=== PATIENT | male | born 1950 | race Caucasian/White ===

== ENCOUNTER 2018-07-09 13:46 | Inpatient (IN) ==
--- NOTE | 2018-07-09 14:39 | ED ---
HPI General Chief complaint: Extremity Injury, Lower Stated complaint: Wounds Time Seen by Provider: 07/09/18 14:15 Source: patient, RN notes reviewed and old records reviewed Mode of arrival: EMS Limitations: other (poor historian) History of Present Illness HPI Narrative: 67 y/o male presents by [facility] with note of right foot pain. Patient is very poor historian and denies other complaints. Nursing staff states they called the shelter to help get chief complaint and that he wears oxygen there. MD Complaint: extremity pain Quality: stabbing Radiation: none Associated symptoms: denies other symptoms Related Data Home Medications Medication Instructions Recorded Confirmed albuterol sulfate 1 puff INHALATION Q4-6H PRN 07/09/18 07/09/18 amlodipine 10 mg PO DAILY 07/09/18 07/09/18 aspirin 81 mg PO DAILY 07/09/18 07/09/18 atorvastatin [Lipitor] 20 mg PO DAILY 07/09/18 07/09/18 budesonide-formoterol [Symbicort] 2 puff INHALATION BID 07/09/18 07/09/18 carvedilol [Coreg] 25 mg PO BID 07/09/18 07/09/18 gabapentin 300 mg PO DAILY 07/09/18 07/09/18 loratadine [Claritin] 20 mg PO DAILY 07/09/18 07/09/18 omeprazole 20 mg PO DAILY 07/09/18 07/09/18 oxycodone-acetaminophen [Percocet] 1 tab PO Q4HR PRN 07/09/18 07/09/18 sennosides-docusate sodium [Senna 1 tab PO BID 07/09/18 07/09/18 Plus] Allergies Allergy/AdvReac Type Severity Reaction Status Date / Time No Known Allergies Allergy Unverified 07/09/18 15:29 Review of Systems ROS: all other systems reviewed are negative PMFSH History History Provided By: Patient and Medical Record (Abdominal aneurysm, coronary artery disease, COPD, high cholesterol, hypertension, renal failure, DE, peripheral vascular disease, coronary artery stent, tobacco use, surgical note with recent endovascular graft repair of aneurysm) Social History Social History Substance History: No History of Abuse Smoking Status: Never smoker Tobacco Type: Cigarettes How Often Do You Have a Drink Containing Alcohol: Monthly or less Exam Narrative Exam Narrative: GENERAL: 67-year-old male in no apparent distress SKIN: Patient has small cut noted to lower foot with dried blood without active signs of cellulitis or crepitus. He has purple discoloration noted to his right hallux with decreased cap refill HEAD: Atraumatic. Normocephalic. EYES: Pupils equal and round. No scleral icterus. No injection or drainage. ENT: No nasal bleeding or discharge. Mucous membranes pink and moist. NECK: Trachea midline. CARDIOVASCULAR: Regular rate and rhythm. RESPIRATORY: No accessory muscle use. GASTROINTESTINAL: Abdomen soft, non-tender, nondistended. MUSCULOSKELETAL: No obvious deformities. Edema noted to right lower extremity, dopplerable DP and PT pulses noted bilaterally NEUROLOGICAL: Awake. Motor grossly within normal limits. Normal speech. Course Reevaluation(s) Reevaluation #1: Patient is getting more short of breath and had to go with patient to CT to help coordinate. Will dose with duo nebs and Solu-Medrol. Chest x-ray reviewed. Prior ABG was on 3 L and his home amount is 4 L so this is likely why his PO2 was low. He will need to be admitted for further care of altered mental status and for likely beginnings of a COPD exacerbation. Dr. Dong can see patient while he is in the hospital for further coordination of his foot pain. son updated and gave history and agrees to plan Reevaluation #2: Patient with possible infiltrate on chest x-ray. Blood cultures, lactate ordered. Broad-spectrum antibiotics with Zosyn and vancomycin ordered given shelter patient on dialysis. Time: 18:24 Reevaluation #3: Notified by nursing staff that patient now has a fever of 102. Patient given Tylenol Consultations Consultation #1: dr dong states he will come see patient in ER Consultation #2: dr solis agrees to admit Initial Documented Vital Signs Pulse Oximetry 98 07/09/18 14:49 Last Documented Vital Signs Temperature 102.1 F H 07/09/18 18:33 Pulse Rate 74 07/09/18 18:33 Respiratory Rate 18 07/09/18 18:33 Blood Pressure 176/73 H 07/09/18 15:31 Pulse Oximetry 91 L 07/09/18 18:33 Medical Decision Making MDM Narrative Medical decision making narrative: Will check blood work, x-ray, Doppler ultrasound and discuss with vascular surgery Differential Diagnosis Differential Diagnosis: Claudication, arterial insufficiency, cellulitis, DVT, musculoskeletal Lab Data Result diagrams: 07/09/18 14:49 07/09/18 14:49 Lab Results 07/09/18 07/09/18 07/09/18 Range/Units 14:49 14:49 15:24 WBC 5.8 (4.0-11.0) th/mm3 RBC 2.86 L (4.50-5.90) mil/mm3 Hgb 8.7 L (13.0-17.0) gm/dL Hct 26.3 L (39.0-51.0) % MCV 91.9 (80.0-100.0) fL MCH 30.4 (27.0-34.0) pg MCHC 33.0 (32.0-36.0) % RDW 18.8 H (11.6-17.2) % Plt Count 53 L (150-450) th/mm3 MPV 10.4 (7.0-11.0) fL Prelim Diff (Auto) Slide review pending Neut % (Auto) 84.2 H (16.0-70.0) % Lymph % (Auto) 9.1 (9.0-44.0) % [place] % (Auto) 5.5 (0.0-8.0) % Eos % (Auto) 0.4 (0.0-4.0) % Baso % (Auto) 0.8 (0.0-2.0) % Neut # (Auto) 4.9 (1.8-7.7) th/mm3 Lymph # (Auto) 0.5 L (1.0-4.8) th/mm3 [place] # (Auto) 0.3 (0.0-0.9) th/mm3 Eos # (Auto) 0.0 (0.0-0.4) th/mm3 Baso # (Auto) 0.0 (0.0-0.2) th/mm3 WBC Differential . Diff Scan Auto diff confirmed Differential Comment . Platelet Estimate Low L (Normal) Platelet Morphology Enlarged H (Normal) Ovalocytes 1+ H (None) Puncture Site Right radial Patient Temperature 98.6 O2 Saturation 88 L* (90-100) % ABG pH 7.39 (7.380-7.420) ABG pCO2 43 H (38-42) mmHg ABG pO2 57 L* (61-120) mmHg ABG HCO3 25 (22-26) mmol/L ABG O2 Content 10.2 L (12.0-20.0) Vol % ABG Base Excess 0.8 (-2-2) mmol/L ABG Methemoglobin 0.7 (0-2) % Dio Test Present Hemoglobin 8.3 L (12.0-16.0) G/DL Carboxyhemoglobin 2.0 (0-4) % O2 Delivery Device Nasal cannula Liter Flow 3.00 L/M Inspired O2 32 % Critical Value Yes Sodium 138 (136-145) meq/L Potassium 5.0 (3.5-5.1) meq/L Chloride 103 (98-107) meq/L Carbon Dioxide 28.5 (21.0-32.0) meq/L Anion Gap 7 (5-15) meq/L BUN 36 H (7-18) mg/dL Creatinine 5.36 H (0.60-1.30) mg/dL Estimated GFR 11 L (>89) mL/min Random Glucose 117 H (74-106) mg/dL Calcium 8.4 L (8.5-10.1) mg/dL Imaging Data Radiologist's impression: Foot X-Ray 07/09/18 14:13 CONCLUSION: 1. No fracture or subluxation demonstrated. 2. Nonspecific soft tissue swelling. 3. Enthesophyte and suspected tendinosis of distal Achilles. 4. Small heel spur. 5. Os peroneum. 6. 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 Venous Doppler Study 07/09/18 14:14 CONCLUSION: 1. No deep venous thrombosis in the right leg Head CT 07/09/18 14:49 CONCLUSION: No acute intracranial abnormality. . Chest X-Ray 07/09/18 14:50 CONCLUSION: Stable right basilar pleural-parenchymal density. Discharge Plan Discharge Disposition Patient Disposition: 30 Still Patient Discharge Condition Condition: Fair Discharge Details Diagnosis: Acute alteration in mental status, Acute exacerbation of chronic obstructive pulmonary disease (COPD), Anemia, Foot pain, Fever, Pneumonia Physicians Team ED Provider: Kellie Blevins Primary Care Provider: [facility],Physician 's Attending Provider: Dajuan Solis Other Providers: Rah Yung ; Mahendra Raines Discharge Interventions Interventions: Vital Signs Last Done: 07/09/18 15:31 Status ED Status: Admitted Patient
--- NOTE | 2018-07-09 15:27 | XR ---
EXAM DATE: 07/09/2018 3:11 PM EDT AGE/SEX: 67 years / Male INDICATIONS: Right foot pain. CLINICAL DATA: This is the patient's initial encounter. Patient reports that signs and symptoms have been present for 4 - 6 days and indicates a pain score of Nonresponsive. MEDICAL/SURGICAL HISTORY: . h/o of blood clots. Non-responsive. COMPARISON: No prior exams available for comparison. FINDINGS: Soft tissue swelling is seen, fairly diffuse but especially dorsally. No fracture or subluxation demo nstrated. Mild osteoarthritis seen first metatarsophalangeal joint and sesamoids. There is a small heel spur. M oderate size enthesophyte seen of the Achilles insertion. The tendon itself is probably at least mild ly thickened. Patient has an os peroneum. CONCLUSION: 1. No fracture or subluxation demonstrated. 2. Nonspecific soft tissue swelling. 3. Enthesophyte and suspected tendinosis of distal Achilles. 4. Small heel spur. 5. Os peroneum. 6. 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 Electronically signed by: Bruce Cao MD 07/09/2018 3:26 PM EDT
--- NOTE | 2018-07-09 15:32 | XR ---
EXAM DATE: 07/09/2018 3:29 PM EDT AGE/SEX: 67 years / Male INDICATIONS: Short of breath. CLINICAL DATA: This is the patient's initial encounter. Patient reports that signs and symptoms have been present for 1 day and indicates a pain score of 7/10. MEDICAL/SURGICAL HISTORY: Cardiovascular disease. CABG. Aortic stents. COMPARISON: No prior exams available for comparison. FINDINGS: A single AP view of the chest demonstrates right basilar pleural-parenchymal density. Left lung clear . Evidence of previous median sternotomy. Stent graft in the descending thoracic aorta again seen. Va scular catheter right jugular vein with tip in the SVC. The cardiomediastinal contours are unremarkab le. Old right-sided rib fractures. Vertebral CONCLUSION: Stable right basilar pleural-parenchymal density. Electronically signed by: Alexander Briscoe MD 07/09/2018 3:30 PM EDT
[2018-07-09 15:35] LABS: Baso % (Auto) 0.8 % (0.0-2.0); Eos % (Auto) 0.4 % (0.0-4.0); Hematocrit 26.3 % (39.0-51.0); Hemoglobin 8.7 gm/dL (13.0-17.0); Lymph # (Auto) 0.5 th/mm3 (1.0-4.8); Lymph % (Auto) 9.1 % (9.0-44.0); Mean Corpuscular Hemoglobin 30.4 pg (27.0-34.0); Mean Corpuscular Volume 91.9 fL (80.0-100.0); Mean Platelet Volume 10.4 fL (7.0-11.0); Mono # (Auto) 0.3 th/mm3 (0.0-0.9); Mono % (Auto) 5.5 % (0.0-8.0); Neut # (Auto) 4.9 th/mm3 (1.8-7.7); Neut % (Auto) 84.2 % (16.0-70.0); Platelet Count 53 th/mm3 (150-450); Red Blood Count 2.86 mil/mm3 (4.50-5.90); Red Cell Distribution Width 18.8 % (11.6-17.2); White Blood Count 5.8 th/mm3 (4.0-11.0)
[2018-07-09 15:48] LABS: Calcium 8.4 mg/dL (8.5-10.1); Carbon Dioxide 28.5 meq/L (21.0-32.0)
[2018-07-09 15:56] LABS: ABG Base Excess 0.8 mmol/L (-2-2); ABG PCO2 43 mmHg (38-42); ABG PO2 57 mmHg (61-120)
--- NOTE | 2018-07-09 16:21 | US ---
EXAM DATE: 07/09/2018 4:18 PM EDT AGE/SEX: 67 years / Male INDICATIONS: Right leg swelling. CLINICAL DATA: This is the patient's initial encounter. Patient reports that signs and symptoms have been present for 1 month and indicates a pain score of Nonresponsive. MEDICAL/SURGICAL HISTORY: . Right leg swelling. Lower extremity dvt. None. Cardiac surgery. COMPARISON: No prior exams available for comparison. TECHNIQUE: Venous ultrasound of both lower extremities was performed from the inguinal ligament to t he proximal calf. Real-time, color Doppler and spectral tracing, compression and augmentation techni ques were used. FINDINGS: Normal compression of the deep venous system from the inguinal region to the proximal calf . No echogenic clot is seen. Normal response of the venous system to augmentation and respiration. CONCLUSION: 1. No deep venous thrombosis in the right leg Electronically signed by: Alexander Briscoe MD 07/09/2018 4:20 PM EDT
[2018-07-09 16:31] LABS: Ovalocytes 1+
[2018-07-09] MEDS ORDERED: MethylPREDNISolone Sod Succinate Inj 125 MG/2 ML Vial IV.PUSH ONE (17:23)
--- NOTE | 2018-07-09 17:28 | CT ---
EXAM DATE: 07/09/2018 5:22 PM EDT AGE/SEX: 67 years / Male INDICATIONS: Altered mental status. CLINICAL DATA: This is the patient's initial encounter. Patient reports that signs and symptoms have been present for 1 day and indicates a pain score of 0/10. MEDICAL/SURGICAL HISTORY: None. None. RADIATION DOSE: 33.10 CTDI (mGy) COMPARISON: No prior exams available for comparison. TECHNIQUE: CT of the head without contrast. Using automated exposure control and adjustment of the mA and/or kV according to patient size, radiation dose was kept as low as reasonably achievable to ob tain optimal diagnostic quality images. DICOM format image data is available electronically for revi ew and comparison. FINDINGS: Cerebrum: The ventricles are normal for age. No evidence of midline shift, mass lesion, hemorrhage or acute infarction. No extraaxial fluid collections are seen. Posterior Fossa: The cerebellum and brainstem are intact. The 4th ventricle is midline. The cerebe llopontine angle is unremarkable. Extracranial: The visualized portion of the orbits is intact. Skull: The calvaria is intact. No evidence of skull fracture. CONCLUSION: No acute intracranial abnormality. . Electronically signed by: Bruce Cao MD 07/09/2018 5:27 PM EDT
[2018-07-09] MEDS ORDERED: Piperacil/Tazo 3.375 GM Premix 50 ML IV.SIG ONE (18:05)
[2018-07-09] MEDS ORDERED: Vancomycin Inj 1 GM/200 ML PIGGYBACK IV.SIG ONE (18:05)
[2018-07-09] MEDS ORDERED: Acetaminophen 325 MG Tablet PO PRN (18:08)
[2018-07-09] MEDS ORDERED: Bisacodyl 10 MG Supp RECTAL PRN (18:08)
[2018-07-09] MEDS ORDERED: Vancomycin Consult Pharmacy 1 EACH OTHER SCH (18:16)
[2018-07-09] MEDS ORDERED: Acetaminophen 650 MG Supp RECTAL ONE (18:22)
--- NOTE | 2018-07-09 18:40 | P.HP ---
History of Present Illness Service: [facility] Primary Care Physician: Physician [facility] Chief Complaint: AMS History of Present Illness: 67-year-old male with past medical history significant for coronary artery disease status post stenting, CABG, COPD with chronic oxygen use, stage IV chronic kidney disease on hemodialysis Friday, Friday, Friday, neuropathy, peripheral vascular disease, abdominal aneurysm s/p repair and stenting on . The majority of the history is gathered from partial medical records as well as son who is at bedside. He reports that patient was doing well following surgery however developed right foot pain for which he followed up with vascular surgeons in [facility]. Patient apparently was supposed to be on some form of compressive stockings which were not continued while he was discharged in rehab. Son reports that patient had been in [facility] and rehab however today developed altered mental status along with increasing right foot pain and was sent to the ER. Patient is seen and examined, lethargic but arousable to touch. Nurse reports temperature of 102, administering rectal Tylenol. CBC revealed anemia with hemoglobin of 8.7, thrombocytopenia with platelets of 53. Blood gas done in the ER on 3 L with pH 7.39, CO2 43, PO2 57, oxygen saturation 88%. BMP with elevated creatinine, consistent with chronic kidney disease. Ultrasound of right lower extremity was negative for DVT. Chest x-ray completed revealed stable right basilar pleuralparenchymal densities. Foot x-ray with no fracture or subluxation, soft tissue swelling, enthesophyte and suspected tendinosis of distal Achilles, small heel spur, OS peroneum, mild OA of the first metatarsal joint and sesamiods. - Diagnosis (1) Acute alteration in mental status (2) Acute exacerbation of chronic obstructive pulmonary disease (COPD) (3) Anemia (4) Foot pain Review of Systems All other systems reviewed negative except as stated in HPI [facility] - History History Provided By: Family Member, Medical Record (Abdominal aneurysm, coronary artery disease, COPD, high cholesterol, hypertension, renal failure, MA , peripheral vascular disease, coronary artery stent, tobacco use, surgical note with recent endovascular graft repair of aneurysm) - Medical History Medical History: Medical History (Last Reviewed 07/09/18 @ 19:01 by Hilaria Villar) CKD (chronic kidney disease) requiring chronic dialysis COPD (chronic obstructive pulmonary disease) Dialysis patient HTN (hypertension) Myocardial infarct Oxygen dependent - Surgical History Surgical History: Surgical History (Last Reviewed 07/09/18 @ 19:01 by Hilaria Villar) H/O heart artery stent Hx of CABG S/P AAA repair Stented coronary artery - Tobacco History Tobacco Use In Past 30 Days: Yes Smoking Status: Never smoker Tobacco Type: Cigarettes - Alcohol History How Often Do You Have a Drink Containing Alcohol: Monthly or less - Substance Use History Substance History: No History of Abuse - Immunization History Tetanus Immunization: >5 Years Hx Influenza Vaccine This Season: Yes Medications and Allergies Active Medications: Active Medications Acetaminophen (Tylenol) 650 mg PO Q4H PRN PRN Reason: Temp > 100.4 Al Hydroxide/Mg Hydroxide (Milk Of Magnesia Liq) 30 ml PO Q12H PRN PRN Reason: Mild Constipation Albuterol (Duoneb Neb (Prn)) 1 ampul NEB Q2HR NEB PRN PRN Reason: SHORTNESS OF BREATH/WHEEZING Albuterol (Duoneb Neb (Vel)) 1 ampul NEB Q6HR WHILE AWAKE NEB VEL Amlodipine Besylate (Norvasc) 10 mg PO DAILY VEL Aspirin (Ecotrin) 81 mg PO DAILY VEL Atorvastatin Calcium (Lipitor) 20 mg PO DAILY VEL Bisacodyl (Dulcolax Supp) 10 mg RECTAL DAILY PRN PRN Reason: SEVERE CONSITIPATION Budesonide/Formoterol Fumarate (Symbicort 160/4.5 Mcg Inh) 2 puff INH BID VEL Gabapentin (Neurontin) 300 mg PO DAILY VEL Piperacillin/Tazobactam/Dextrose (Zosyn 3.375 Gm Premix) 50 mls @ 100 mls/hr IV.SIG ONCE ONE Stop: 07/09/18 18:34 Vancomycin/Sodium Chloride (Vancomycin Inj) 1 gm in 200 mls @ 200 mls/hr IV.SIG ONCE ONE Stop: 07/09/18 19:04 Pharmacy Profile Note (Vancomycin Consult Pharmacy) 0 mls @ 0 mls/hr OTHER UNSCH VEL Piperacillin/Tazobactam/Dextrose (Zosyn 3.375 Gm Premix) 50 mls @ 100 mls/hr IV.SIG Q8H VEL Lactulose (Lactulose Liq) 30 ml PO DAILY PRN PRN Reason: SEVERE CONSITIPATION Loratadine (Claritin) 20 mg PO DAILY VEL Methylprednisolone Sodium Succinate (Solumedrol Inj) 40 mg IV.PUSH Q8HR [facility] Non-Formulary Medication (Carvedilol [Coreg]) 25 mg PO BID [facility] Non-Formulary Medication (Omeprazole [Omeprazole]) 20 mg PO DAILY [facility] Oxycodone/Acetaminophen (Percocet 5/325 Mg) 1 tab PO Q4HR PRN PRN Reason: PAIN SCALE 6 TO 10 Senna/Docusate Sodium (Flor-Colace) 1 tab PO BID [facility] Sennosides (Senokot) 17.2 mg PO Q12H PRN PRN Reason: Moderate Constipation Sodium Chloride (Ns Flush) 2 ml IV.FLUSH PRN PRN PRN Reason: FLUSH AFTER USING IV ACCESS Allergies Allergy/AdvReac Type Severity Reaction Status Date / Time No Known Allergies Allergy Unverified 07/09/18 15:29 Home Medications Medication Instructions Recorded Confirmed Type albuterol sulfate 1 puff INHALATION Q4-6H PRN 07/09/18 07/09/18 History amlodipine 10 mg PO DAILY 07/09/18 07/09/18 History aspirin 81 mg PO DAILY 07/09/18 07/09/18 History atorvastatin [Lipitor] 20 mg PO DAILY 07/09/18 07/09/18 History budesonide-formoterol [Symbicort] 2 puff INHALATION BID 07/09/18 07/09/18 History carvedilol [Coreg] 25 mg PO BID 07/09/18 07/09/18 History gabapentin 300 mg PO DAILY 07/09/18 07/09/18 History loratadine [Claritin] 20 mg PO DAILY 07/09/18 07/09/18 History omeprazole 20 mg PO DAILY 07/09/18 07/09/18 History oxycodone-acetaminophen [Percocet] 1 tab PO Q4HR PRN 07/09/18 07/09/18 History sennosides-docusate sodium [Senna 1 tab PO BID 07/09/18 07/09/18 History Plus] Exam Vital signs: Vital Signs 07/09/18 14:49 07/09/18 15:31 Temperature 36.6 C Pulse Rate 78 Respiratory Rate 16 Blood Pressure 176/73 H Pulse Oximetry 98 94 L Narrative: GENERAL: Well-nourished male who appears older than stated age, lethargic. SKIN: Warm and dry. Bilateral forearm ecchymosis, upper chest and neck ecchymosis, bilateral leg scattered ecchymosis. HEAD: Atraumatic. Normocephalic. EYES: Pupils equal and round. No scleral icterus. No injection or drainage. ENT: No nasal bleeding or discharge. Dry mucous membranes NECK: Trachea midline. No JVD. CARDIOVASCULAR: Regular rate and rhythm. Right upper chest dialysis port, dried blood noted. Left forearm AV fistula with positive bruit and thrill RESPIRATORY: No accessory muscle use. Bilateral lower lobe crackles, upper rhonchi and scattered territory wheezing. GASTROINTESTINAL: Abdomen soft, non-tender, nondistended. Positive bowel sounds MUSCULOSKELETAL: Extremities without clubbing. Bilateral leg and feet +2 edema. Right foot tip/dorsal aspect of 2 through 5 metatarsals with dark purple discoloration. Erythema surrounding purple discoloration, warm foot, difficult to palpate pulses secondary to edema. NEUROLOGICAL: Lethargic, positive withdrawal to pain. no obvious cranial nerve deficits. Moving all extremities spontaneously, speech is clear with few words. Results - Labs CBC & Chem 7: 07/09/18 14:49 07/09/18 14:49 Labs: Laboratory Results - last 24 hr 07/09/18 07/09/18 07/09/18 14:49 14:49 15:24 WBC 5.8 RBC 2.86 L Hgb 8.7 L Hct 26.3 L MCV 91.9 MCH 30.4 MCHC 33.0 RDW 18.8 H Plt Count 53 L MPV 10.4 Prelim Diff (Auto) Slide review pending Neut % (Auto) 84.2 H Lymph % (Auto) 9.1 [place] % (Auto) 5.5 Eos % (Auto) 0.4 Baso % (Auto) 0.8 Neut # (Auto) 4.9 Lymph # (Auto) 0.5 L [place] # (Auto) 0.3 Eos # (Auto) 0.0 Baso # (Auto) 0.0 WBC Differential . Diff Scan Auto diff confirmed Differential Comment . Platelet Estimate Low L Platelet Morphology Enlarged H Ovalocytes 1+ H Puncture Site Right radial Patient Temperature 98.6 O2 Saturation 88 L* ABG pH 7.39 ABG pCO2 43 H ABG pO2 57 L* ABG HCO3 25 ABG O2 Content 10.2 L ABG Base Excess 0.8 ABG Methemoglobin 0.7 Dio Test Present Hemoglobin 8.3 L Carboxyhemoglobin 2.0 O2 Delivery Device Nasal cannula Liter Flow 3.00 Inspired O2 32 Critical Value Yes Sodium 138 Potassium 5.0 Chloride 103 Carbon Dioxide 28.5 Anion Gap 7 BUN 36 H Creatinine 5.36 H Estimated GFR 11 L Random Glucose 117 H Calcium 8.4 L - Imaging Impressions Foot X-Ray 07/09/18 14:13 CONCLUSION: 1. No fracture or subluxation demonstrated. 2. Nonspecific soft tissue swelling. 3. Enthesophyte and suspected tendinosis of distal Achilles. 4. Small heel spur. 5. Os peroneum. 6. 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 Venous Doppler Study 07/09/18 14:14 CONCLUSION: 1. No deep venous thrombosis in the right leg Head CT 07/09/18 14:49 CONCLUSION: No acute intracranial abnormality. . Chest X-Ray 07/09/18 14:50 CONCLUSION: Stable right basilar pleural-parenchymal density. Caprini VTE Risk Assessment Caprini VTE Risk Assessment: Moderate/High Risk (score >= 2) VTE Pharmacological Exception Reason: High risk for bleeding Caprini Risk Assessment Model: Point Value = 1 Point Value = 2 Point Value = 3 Point Value = 5 Age 41-60 Minor surgery BMI > 25 kg/m2 Swollen legs Varicose veins or History of unexplained or recurrent spontaneous Oral contraceptives or hormone replacement Sepsis (< 1 month) Serious lung disease, including pneumonia (< 1 month) Abnormal pulmonary function Acute myocardial infarction Congestive heart failure (< 1 month) History of inflammatory bowel disease Medical patient at bed rest Age 61-74 Arthroscopic surgery Major open surgery (> 45 min) Laparoscopic surgery (> 45 min) Malignancy Confined to bed (> 72 hours) Immobilizing plaster cast Central venous access Age >= 75 History of VTE Family history of VTE Factor V Leiden Prothrombin [id number] Lupus anticoagulant Anticardiolipin antibodies Elevated serum homocysteine Heparin-induced thrombocytopenia Other congenital or acquired thrombophilia Stroke (< 1 month) Elective arthroplasty Hip, pelvis, or leg fracture Acute spinal cord injury (< 1 month) Prophylaxis Regimen: Total Risk Factor Score Risk Level Prophylaxis Regimen 0-1 Low Early ambulation 2 Moderate Order ONE of the following: *Sequential Compression Device (SCD) *Heparin 5000 units SQ BID 3-4 Higher Order ONE of the following medications: *Heparin 5000 units SQ TID *Enoxaparin/Lovenox 40 mg SQ daily (WT < 150 kg, CrCl > 30 mL/min) *Enoxaparin/Lovenox 30 mg SQ daily (WT < 150 kg, CrCl > 10-29 mL/min) *Enoxaparin/Lovenox 30 mg SQ BID (WT < 150 kg, CrCl > 30 mL/min) AND/OR *Sequential Compression Device (SCD) 5 or more Highest Order ONE of the following medications: *Heparin 5000 units SQ TID (Preferred with Epidurals) *Enoxaparin/Lovenox 40 mg SQ daily (WT < 150 kg, CrCl > 30 mL/min) *Enoxaparin/Lovenox 30 mg SQ daily (WT < 150 kg, CrCl > 10-29 mL/min) *Enoxaparin/Lovenox 30 mg SQ BID (WT < 150 kg, CrCl > 30 mL/min) AND *Sequential Compression Device (SCD) Assessment and Plan - Assessment (1) Acute alteration in mental status Code(s): R41.82 - Altered mental status, unspecified Status: Acute (2) Acute exacerbation of chronic obstructive pulmonary disease (COPD) Code(s): J44.1 - Chronic obstructive pulmonary disease with (acute) exacerbation Status: Acute (3) Anemia Code(s): D64.9 - Anemia, unspecified Status: Acute (4) Foot pain Code(s): M79.673 - Pain in unspecified foot Status: Acute - Plan 67-year-old male with past medical history significant for coronary artery disease status post stenting, CABG, COPD with chronic oxygen use, stage IV chronic kidney disease on hemodialysis Friday, Friday, Friday, neuropathy, peripheral vascular disease, abdominal aneurysm s/p repair and stenting on . Discharge to rehabilitation center, developed altered mental status and increased right foot pain. AAA s/p repair and stenting -BP control, vascular services consulted Right foot pain -Toe discoloration noted on exam -Cellulitis versus ischemia -Right lower extremity Doppler ultrasound negative -Vascular services consulted by ED physician, greatly appreciate assistance -As needed Percocet for pain, continue gabapentin Altered mental status -CT of the head negative for acute abnormality -Blood gas with low PO2 at 57 and low O2 saturation, possibly contributing, could also be related to underlying infection/pneumonia -Check ammonia, vitamins, RPR, obtained UA if still in nonoliguric Healthcare acquired pneumonia/COPD exacerbation -Chest x-ray with stable right basilar pleuralparenchymal densities, T-max in ED 102 -Blood cultures 2 obtained -Given IV vancomycin and Zosyn in ED -Continue IV antibiotics, consult pharmacy for vancomycin dosing -Antipyretics as needed -Scheduled duo nebs, Solu-Medrol every 6 hours -Continue home Symbicort End-stage renal disease -On chronic HD M/W/F -Consult nephrology services for ongoing treatment Anemia Pancytopenia -Last platelet and PRBC trans fusionon -Continue monitoring labs DVT prophylaxis-SCDs, hold off on chemical prophylaxis due to thrombocytopenia Discussed Condition With: Discussed with ED RN, son, (3) Anemia Qualifiers: Anemia type: unspecified type Qualified Code(s): D64.9 - Anemia, unspecified (4) Foot pain Qualifiers: Laterality: right Qualified Code(s): M79.671 - Pain in right foot
[2018-07-09] MEDS ORDERED: Vancomycin Inj 1,000 MG in Sodium Chlor 0.9% Inj 250 ML IV.SIG ONE (19:00)
[2018-07-09] MEDS: Senna/Docusate Sodium 8.6/50 MG Tablet PO SCH (22:31)
[2018-07-09] MEDS: Carvedilol 12.5 MG Tablet PO SCH (22:31)
[2018-07-09] MEDS: Budesonide-Formoterol 160/4.5 MCG 6 GM Inhaler INH SCH (22:31)
[2018-07-09] MEDS: MethylPREDNISolone Sod Succinate Inj 40 MG/ML Vial IV.PUSH SCH (23:26)
[2018-07-10] MEDS: Piperacil/Tazo 2.25 GM Premix 50 ML IV.SIG SCH ×3 (01:51→19:13)
[2018-07-10] MEDS: MethylPREDNISolone Sod Succinate Inj 40 MG/ML Vial IV.PUSH SCH ×3 (05:00→21:49)
[2018-07-10 06:55] LABS: Baso % (Auto) 0.2 % (0.0-2.0); Hematocrit 24.1 % (39.0-51.0); Hemoglobin 7.9 gm/dL (13.0-17.0); Lymph # (Auto) 0.4 th/mm3 (1.0-4.8); Lymph % (Auto) 8.7 % (9.0-44.0); Mean Corpuscular HGB Conc 32.9 % (32.0-36.0); Mean Corpuscular Hemoglobin 30.4 pg (27.0-34.0); Mean Corpuscular Volume 92.5 fL (80.0-100.0); Mean Platelet Volume 9.3 fL (7.0-11.0); Mono # (Auto) 0.1 th/mm3 (0.0-0.9); Mono % (Auto) 2.1 % (0.0-8.0); Neut # (Auto) 3.8 th/mm3 (1.8-7.7); Platelet Count 46 th/mm3 (150-450); Red Blood Count 2.61 mil/mm3 (4.50-5.90); Red Cell Distribution Width 18.6 % (11.6-17.2); White Blood Count 4.3 th/mm3 (4.0-11.0)
[2018-07-10 07:14] LABS: Calcium 8.2 mg/dL (8.5-10.1); Carbon Dioxide 22.4 meq/L (21.0-32.0); Potassium 5.3 meq/L (3.5-5.1)
[2018-07-10] MEDS: Loratadine 10 MG Tablet PO SCH (08:16)
[2018-07-10] MEDS: Senna/Docusate Sodium 8.6/50 MG Tablet PO SCH ×2 (08:16→21:48)
[2018-07-10] MEDS: amLODIPine 10 MG Tablet PO SCH (08:16)
[2018-07-10] MEDS: Carvedilol 12.5 MG Tablet PO SCH ×2 (08:16→21:48)
[2018-07-10] MEDS: Pantoprazole Sodium 20 MG DR Tablet PO SCH (08:17)
[2018-07-10] MEDS: Gabapentin 300 MG Capsule PO SCH (08:17)
[2018-07-10 08:19] LABS: Ovalocytes 1+
[2018-07-10] MEDS ORDERED: Gelatin 12 MM/7 MM Topical Foam TOPICAL PRN (09:13)
[2018-07-10] MEDS ORDERED: Heparin 10,000 UNITS/10 ML Vial (for IV use) OTHER PRN (09:13)
[2018-07-10] MEDS ORDERED: Sod Chloride 0.9% Inj 1,000 ML OTHER PRN ×2 (09:13)
[2018-07-10] MEDS ORDERED: Albumin Human 25% Inj 100 ML IV.SIG PRN (09:13)
[2018-07-10] MEDS ORDERED: Sod Chloride 0.9% Inj 1,000 ML IV.CONT PRN (09:13)
[2018-07-10] MEDS ORDERED: Acetaminophen 325 MG Tablet PO PRN (09:13)
[2018-07-10] MEDS: Heparin 10,000 UNITS/10 ML Vial (for IV use) OTHER PRN (10:55)
[2018-07-10] MEDS: Budesonide-Formoterol 160/4.5 MCG 6 GM Inhaler INH SCH ×2 (12:25→22:07)
--- NOTE | 2018-07-10 12:53 | P.PNIM ---
Subjective Interval history: Patient seen in dialysis this morning. Says he is feeling all right. Denies any chest pain or shortness of breath. Denies abdominal pain. Continued right foot pain worse with movement. Physical Exam Vital signs: Vital Signs 07/09/18 14:49 07/09/18 15:31 07/09/18 17:30 Temperature 97.8 F Pulse Rate 78 76 Respiratory Rate 16 32 H Blood Pressure 176/73 H Pulse Oximetry 98 94 L 07/09/18 18:33 07/09/18 19:25 07/09/18 20:38 Temperature 102.1 F H Pulse Rate 74 76 73 Respiratory Rate 18 18 16 Blood Pressure 146/65 H Pulse Oximetry 91 L 98 94 L 07/09/18 21:45 07/10/18 00:28 07/10/18 04:57 Temperature 98.9 F 98.9 F Pulse Rate 66 69 Respiratory Rate 20 20 Blood Pressure 166/75 H 181/77 H Pulse Oximetry 96 95 07/10/18 07:00 07/10/18 09:29 07/10/18 12:25 Temperature 98.1 F 97.7 F Pulse Rate 75 75 76 Respiratory Rate 20 18 20 Blood Pressure 142/85 H 158/81 H Pulse Oximetry 97 97 Intake & Output 07/09/18 07/10/18 07/10/18 18:59 06:59 18:59 Intake Total 50 / 50 Output Total 3000 / 3000 Balance 50 / 50 -3000 / -3000 Weight 54.431 kg Intake: IV 50 / 50 Zosyn 2.25 GM Premix 50 ML @ 50 / 50 100 mls/hr IV.SIG Q8H MANJU Rx#: [id number] Output: Hemodialysis Amount 3000 / 3000 Narrative: GENERAL: Patient seen in dialysis. Oriented to year, month. Alert. SKIN: Warm and dry. HEAD: Normocephalic. EYES: No scleral icterus. No injection or drainage. NECK: Supple, trachea midline. No JVD. CARDIOVASCULAR: Regular rate and rhythm without murmurs, gallops, or rubs. RESPIRATORY: Breath sounds equal bilaterally. No accessory muscle use. GASTROINTESTINAL: Abdomen soft, non-tender, nondistended. MUSCULOSKELETAL: or edema. Cyanotic right third through fifth toes. +2 peripheral edema bilaterally. Difficult to palpate pulses BACK: Nontender without obvious deformity. No CVA tenderness. Results - Labs CBC & Chem 7: 08/10/18 05:59 07/10/18 05:59 Laboratory Results - last 24 hr 07/09/18 07/09/18 07/09/18 12:39 14:49 14:49 WBC 5.8 RBC 2.86 L Hgb 8.7 L Hct 26.3 L MCV 91.9 MCH 30.4 MCHC 33.0 RDW 18.8 H Plt Count 53 L MPV 10.4 Prelim Diff (Auto) Slide review pending Neut % (Auto) 84.2 H Lymph % (Auto) 9.1 [place] % (Auto) 5.5 Eos % (Auto) 0.4 Baso % (Auto) 0.8 Neut # (Auto) 4.9 Lymph # (Auto) 0.5 L [place] # (Auto) 0.3 Eos # (Auto) 0.0 Baso # (Auto) 0.0 WBC Differential . Diff Scan Auto diff confirmed Differential Comment . Platelet Estimate Low L Platelet Morphology Enlarged H Ovalocytes 1+ H Keratocytes Puncture Site Patient Temperature O2 Saturation ABG pH ABG pCO2 ABG pO2 ABG HCO3 ABG O2 Content ABG Base Excess ABG Methemoglobin Dio Test Hemoglobin Carboxyhemoglobin O2 Delivery Device Liter Flow Inspired O2 Critical Value Sodium 138 Potassium 5.0 Chloride 103 Carbon Dioxide 28.5 Anion Gap 7 BUN 36 H Creatinine 5.36 H Estimated GFR 11 L Random Glucose 117 H Lactic Acid 4.1 H* Calcium 8.4 L Ammonia Folate RPR 07/09/18 07/09/18 07/09/18 15:24 18:52 18:52 WBC RBC Hgb Hct MCV MCH MCHC RDW Plt Count MPV Prelim Diff (Auto) Neut % (Auto) Lymph % (Auto) [place] % (Auto) Eos % (Auto) Baso % (Auto) Neut # (Auto) Lymph # (Auto) [place] # (Auto) Eos # (Auto) Baso # (Auto) WBC Differential Diff Scan Differential Comment Platelet Estimate Platelet Morphology Ovalocytes Keratocytes Puncture Site Right radial Patient Temperature 98.6 O2 Saturation 88 L* ABG pH 7.39 ABG pCO2 43 H ABG pO2 57 L* ABG HCO3 25 ABG O2 Content 10.2 L ABG Base Excess 0.8 ABG Methemoglobin 0.7 Dio Test Present Hemoglobin 8.3 L Carboxyhemoglobin 2.0 O2 Delivery Device Nasal cannula Liter Flow 3.00 Inspired O2 32 Critical Value Yes Sodium Potassium Chloride Carbon Dioxide Anion Gap BUN Creatinine Estimated GFR Random Glucose Lactic Acid Calcium Ammonia 20 Folate 19.6 H RPR 07/09/18 07/10/18 07/10/18 18:52 05:59 05:59 WBC 4.3 RBC 2.61 L Hgb 7.9 L Hct 24.1 L MCV 92.5 MCH 30.4 MCHC 32.9 RDW 18.6 H Plt Count 46 L MPV 9.3 Prelim Diff (Auto) Slide review pending Neut % (Auto) 89.0 H Lymph % (Auto) 8.7 L [place] % (Auto) 2.1 Eos % (Auto) 0.0 Baso % (Auto) 0.2 Neut # (Auto) 3.8 Lymph # (Auto) 0.4 L [place] # (Auto) 0.1 Eos # (Auto) 0.0 Baso # (Auto) 0.0 WBC Differential . Diff Scan Auto diff confirmed Differential Comment . Platelet Estimate Low L Platelet Morphology Enlarged H Ovalocytes 1+ H Keratocytes Occ H Puncture Site Patient Temperature O2 Saturation ABG pH ABG pCO2 ABG pO2 ABG HCO3 ABG O2 Content ABG Base Excess ABG Methemoglobin Dio Test Hemoglobin Carboxyhemoglobin O2 Delivery Device Liter Flow Inspired O2 Critical Value Sodium 136 Potassium 5.3 H Chloride 102 Carbon Dioxide 22.4 Anion Gap 12 BUN 45 H Creatinine 6.16 H Estimated GFR 9 L Random Glucose 117 H Lactic Acid Calcium 8.2 L Ammonia Folate RPR Nonreactive Microbiology 07/09/18 18:19 Blood - Peripheral Aerobic Blood Culture - Preliminary No growth in 1 day 07/09/18 18:19 Blood - Peripheral Anaerobic Blood Culture - Preliminary No growth in 1 day 07/09/18 18:19 Blood - Peripheral Aerobic Blood Culture - Preliminary No growth in 1 day 07/09/18 18:19 Blood - Peripheral Anaerobic Blood Culture - Preliminary No growth in 1 day - Imaging Impressions Foot X-Ray 07/09/18 14:13 CONCLUSION: 1. No fracture or subluxation demonstrated. 2. Nonspecific soft tissue swelling. 3. Enthesophyte and suspected tendinosis of distal Achilles. 4. Small heel spur. 5. Os peroneum. 6. 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 Venous Doppler Study 07/09/18 14:14 CONCLUSION: 1. No deep venous thrombosis in the right leg Head CT 07/09/18 14:49 CONCLUSION: No acute intracranial abnormality. . Chest X-Ray 07/09/18 14:50 CONCLUSION: Stable right basilar pleural-parenchymal density. Assessment and Plan - Assessment (1) Acute alteration in mental status Code(s): R41.82 - Altered mental status, unspecified Status: Acute (2) Acute exacerbation of chronic obstructive pulmonary disease (COPD) Code(s): J44.1 - Chronic obstructive pulmonary disease with (acute) exacerbation Status: Acute (3) Anemia Code(s): D64.9 - Anemia, unspecified Status: Acute (4) Foot pain Code(s): M79.673 - Pain in unspecified foot Status: Acute - Plan 67-year-old male with past medical history significant for coronary artery disease status post stenting, CABG, COPD with chronic oxygen use, stage IV chronic kidney disease on hemodialysis Friday, Friday, Friday, neuropathy, peripheral vascular disease, abdominal aneurysm s/p repair and stenting on . Discharge to rehabilitation center, developed altered mental status and increased right foot pain. //AAA s/p repair and stenting -BP control, vascular services consulted //Right foot pain -Toe discoloration noted on exam -Cellulitis versus ischemia -Right lower extremity Doppler ultrasound negative -Vascular services consulted by ED physician, greatly appreciate assistance -As needed Percocet for pain, continue gabapentin = 07/10. Still with right lower extremity pain, follow-up vascular surgery recommendations. Appreciate assistance. //Altered mental status -CT of the head negative for acute abnormality -Blood gas with low PO2 at 57 and low O2 saturation, possibly contributing, could also be related to underlying infection/pneumonia -Check ammonia, vitamins, RPR, obtained UA if still in nonoliguric //Healthcare acquired pneumonia/COPD exacerbation -Chest x-ray with stable right basilar pleuralparenchymal densities, T-max in ED 102 -Blood cultures 2 obtained -Given IV vancomycin and Zosyn in ED -Continue IV antibiotics, consult pharmacy for vancomycin dosing -Antipyretics as needed -Scheduled duo nebs, Solu-Medrol every 6 hours -Continue home Symbicort = Continues on antibiotics. Respiratory status improved. //End-stage renal disease -On chronic HD M/W/F -Consult nephrology services for ongoing treatment = Dialysis as per nephrology. Appreciate assistance. //Anemia Pancytopenia -Last platelet and PRBC trans fusionon -Continue monitoring labs = 07/10 hemoglobin 7.9 this morning, could be dilutional. Recheck this afternoon. DVT prophylaxis-SCDs, hold off on chemical prophylaxis due to thrombocytopenia Discharge Planning: Continues inpatient treatment for pneumonia PT following. May need rehab Follow-up vascular surgery recommendations. (3) Anemia Qualifiers: Anemia type: unspecified type Qualified Code(s): D64.9 - Anemia, unspecified (4) Foot pain Qualifiers: Laterality: right Qualified Code(s): M79.671 - Pain in right foot
--- NOTE | 2018-07-10 16:07 | P.CONNP ---
<Renee Norton - Last Filed: 07/10/18 17:55> History of Present Illness Service: Nephrology Consult date: 07/10/18 Reason for Consult: ESRD on HD Primary Care Provider: [facility] Chief Complaint: AMS History of Present Illness: This is a 67 y/o male who COPD, HTN, recent endovascular AAA repair. He lives in [facility], dialyzes in [facility]. He has only been on HD for a short time, perhaps a few months, since his recent hospitalization in which they apparently used an investigational treatment for his aneurysm. He was admitted for AMS and right foot pain. Both legs are edematous, right toes are bleeding and distal portions are necrotic. he was admitted for AMS and right foot pain. He is also diagnosed with COPD exacerbation, has wheezing and rhonchi on exam. He is seen during dialysis today, and later in the ER his respirations were much less labored. We were consulted for dialysis management. His family is present, and his code status is listed as "full". Review of Systems Constitutional: Denies chills, Denies fever(s) Cardiovascular: Denies chest pain Respiratory: Reports cough, Reports excessive phlegm production, Reports shortness of breath, Reports shortness of breath with activity, Reports wheezing Gastrointestinal: Denies abdominal pain PMFSH - History History Provided By: Patient, Medical Record (Abdominal aneurysm, coronary artery disease, COPD, high cholesterol, hypertension, renal failure, [place], peripheral vascular disease, coronary artery stent, tobacco use, surgical note with recent endovascular graft repair of aneurysm) - Medical History Medical History: Medical History (Last Reviewed 07/10/18 @ 11:21 by Giselle Hayes) CKD (chronic kidney disease) requiring chronic dialysis COPD (chronic obstructive pulmonary disease) Dialysis patient HTN (hypertension) Myocardial infarct Oxygen dependent - Surgical History Surgical History: Surgical History (Last Reviewed 07/10/18 @ 11:21 by Giselle Hayes) H/O heart artery stent Hx of CABG S/P AAA repair Stented coronary artery - Tobacco History Second Hand Smoke Exposure: No Tobacco Use In Past 30 Days: Yes Smoking Status: Never smoker Tobacco Type: Cigarettes - Alcohol History How Often Do You Have a Drink Containing Alcohol: Monthly or less - Substance Use History Substance History: No History of Abuse - Immunization History Tetanus Immunization: >5 Years Hx Influenza Vaccine This Season: Yes Medications and Allergies Allergies Allergy/AdvReac Type Severity Reaction Status Date / Time No Known Allergies Allergy Unverified 07/09/18 15:29 Home Medications Medication Instructions Recorded Confirmed Type albuterol sulfate 1 puff INHALATION Q4-6H PRN 07/09/18 07/09/18 History amlodipine 10 mg PO DAILY 07/09/18 07/09/18 History aspirin 81 mg PO DAILY 07/09/18 07/09/18 History atorvastatin [Lipitor] 20 mg PO DAILY 07/09/18 07/09/18 History budesonide-formoterol [Symbicort] 2 puff INHALATION BID 07/09/18 07/09/18 History carvedilol [Coreg] 25 mg PO BID 07/09/18 07/09/18 History gabapentin 300 mg PO DAILY 07/09/18 07/09/18 History loratadine [Claritin] 20 mg PO DAILY 07/09/18 07/09/18 History omeprazole 20 mg PO DAILY 07/09/18 07/09/18 History oxycodone-acetaminophen [Percocet] 1 tab PO Q4HR PRN 07/09/18 07/09/18 History sennosides-docusate sodium [Senna 1 tab PO BID 07/09/18 07/09/18 History Plus] Active Medications: Active Medications Acetaminophen (Tylenol) 650 mg PO Q4H PRN PRN Reason: Temp > 100.4 Acetaminophen (Tylenol) 650 mg PO UNSCH PRN PRN Reason: SEE LABEL COMMENTS Albuterol (Duoneb Neb (Prn)) 1 ampul NEB Q2HR NEB PRN PRN Reason: SHORTNESS OF BREATH/WHEEZING Last Admin: 07/10/18 09:30 Dose: 1 ampul Albuterol (Duoneb Neb (Vel)) 1 ampul NEB Q6HR WHILE AWAKE NEB VEL Last Admin: 07/10/18 08:50 Dose: 1 ampul Amlodipine Besylate (Norvasc) 10 mg PO DAILY VEL Last Admin: 07/10/18 08:16 Dose: 10 mg Aspirin (Ecotrin) 81 mg PO DAILY [facility] Last Admin: 07/10/18 08:17 Dose: 81 mg Atorvastatin Calcium (Lipitor) 20 mg PO DAILY [facility] Last Admin: 07/10/18 08:16 Dose: 20 mg Bisacodyl (Dulcolax Supp) 10 mg RECTAL DAILY PRN PRN Reason: SEVERE CONSITIPATION Budesonide/Formoterol Fumarate (Symbicort 160/4.5 Mcg Inh) 2 puff INH BID [facility] Last Admin: 07/10/18 12:25 Dose: 2 puff Carvedilol (Coreg) 25 mg PO BID [facility] Last Admin: 07/10/18 08:16 Dose: 25 mg Clonidine HCl (Catapres) 0.1 mg PO UNSCH PRN PRN Reason: SEE LABEL COMMENTS Diphenhydramine HCl (Benadryl) 25 mg PO UNSCH PRN PRN Reason: SEE LABEL COMMENTS Epoetin Joshua (Epogen Inj) 10,000 unit IV.PUSH UNSCH PRN PRN Reason: SEE LABEL COMMENTS Last Admin: 07/10/18 10:54 Dose: 10,000 unit Gabapentin (Neurontin) 300 mg PO DAILY [facility] Last Admin: 07/10/18 08:17 Dose: 300 mg Gelatin (Gelfoam 12 Mm/7 Mm Topical) 1 foam TOPICAL PRN PRN PRN Reason: help stop bleeding from site Gentamicin Sulfate (Gentamicin Inj) 20 mg OTHER WITH DIALYSIS PRN PRN Reason: Dwell Gentamycin Lock Last Admin: 07/10/18 10:55 Dose: 20 mg Heparin Sodium (Porcine) (Heparin Inj) 8,000 units OTHER WITH DIALYSIS PRN PRN Reason: for machine prime Heparin Sodium (Porcine) (Heparin Inj) 1,000 units OTHER WITH DIALYSIS PRN PRN Reason: Dwell Heparin to Fill Catheter Last Admin: 07/10/18 10:55 Dose: 1,000 units Pharmacy Profile Note (Vancomycin Consult Pharmacy) 0 mls @ 0 mls/hr OTHER UNSCH [facility] Piperacillin/Tazobactam/Dextrose (Zosyn 2.25 Gm Premix) 50 mls @ 100 mls/hr IV.SIG Q8H [facility] Last Infusion: 07/10/18 13:20 Dose: Infused Albumin Human (Flexbumin 25% Inj) 100 mls @ 60 mls/hr IV.SIG WITH DIALYSIS PRN PRN Reason: hypotension / volume replace Sodium Chloride (Ns Inj) 1,000 mls @ 0 mls/hr OTHER .Q0M PRN PRN Reason: for prime and rinse back Sodium Chloride (Ns Inj) 1,000 mls @ 0 mls/hr IV.CONT .Q0M PRN PRN Reason: hypotension / volume replace Sodium Chloride (Ns Inj) 1,000 mls @ 200 mls/hr OTHER .Q5H PRN PRN Reason: for dialyzer flush PRN Lactulose (Lactulose Liq) 30 ml PO DAILY PRN PRN Reason: SEVERE CONSITIPATION Loratadine (Claritin) 20 mg PO DAILY [facility] Last Admin: 07/10/18 08:16 Dose: 20 mg Mannitol (Mannitol Inj) 12.5 gm IV.PUSH UNSCH PRN PRN Reason: hypotension / volume replace Methylprednisolone Sodium Succinate (Solumedrol Inj) 40 mg IV.PUSH Q8HR [facility] Last Admin: 07/10/18 13:52 Dose: 40 mg Nitroglycerin (Nitrostat Sl) 0.4 mg SL Q5M PRN PRN Reason: CHEST PAIN Ondansetron HCl (Zofran Inj) 4 mg IV.PUSH UNSCH PRN PRN Reason: NAUSEA OR VOMITING Oxycodone/Acetaminophen (Percocet 5/325 Mg) 1 tab PO Q4HR PRN PRN Reason: PAIN SCALE 6 TO 10 Pantoprazole Sodium (Protonix) 20 mg PO DAILY [facility] Last Admin: 07/10/18 08:17 Dose: 20 mg Senna/Docusate Sodium (Flor-Colace) 1 tab PO BID [facility] Last Admin: 07/10/18 08:16 Dose: 1 tab Sennosides (Senokot) 17.2 mg PO Q12H PRN PRN Reason: Moderate Constipation Sodium Chloride (Ns Flush) 2 ml IV.FLUSH PRN PRN PRN Reason: FLUSH AFTER USING IV ACCESS Sodium Chloride (Ns Flush) 5 ml IV.FLUSH PRN PRN PRN Reason: flush each lumen during HD Exam Vital signs: Vital Signs 07/09/18 17:30 07/09/18 18:33 07/09/18 19:25 Temperature 102.1 F H Pulse Rate 76 74 76 Respiratory Rate 32 H 18 18 Blood Pressure Pulse Oximetry 91 L 98 07/09/18 20:38 07/09/18 21:45 07/10/18 00:28 Temperature 98.9 F Pulse Rate 73 66 Respiratory Rate 16 20 Blood Pressure 146/65 H 166/75 H Pulse Oximetry 94 L 96 07/10/18 04:57 07/10/18 07:00 07/10/18 09:29 Temperature 98.9 F 98.1 F Pulse Rate 69 75 75 Respiratory Rate 20 20 18 Blood Pressure 181/77 H 142/85 H Pulse Oximetry 95 97 07/10/18 12:25 07/10/18 13:40 Temperature 97.7 F 97.9 F Pulse Rate 76 76 Respiratory Rate 20 20 Blood Pressure 158/81 H 153/81 H Pulse Oximetry 97 97 Intake & Output 07/09/18 07/10/18 07/10/18 18:59 06:59 18:59 Intake Total 50 / 50 50 / 50 Output Total 3000 / 3000 Balance 50 / 50 -2950 / -2950 Weight 54.431 kg Intake: IV 50 / 50 50 / 50 Zosyn 2.25 GM Premix 50 ML @ 50 / 50 50 / 50 100 mls/hr IV.SIG Q8H [facility] Rx#: [id number] Output: Hemodialysis Amount 3000 / 3000 - Constitutional no acute distress, chronically ill appearing, disheveled - Routine Neck Exam Present: supple, full ROM - Routine Respiratory Exam Present: accessory muscle use, rales, wheezes, diminished air movement - Routine Cardiovascular Exam Present: RRR, S1, S2 - Routine Abdominal Exam Absent: distended - Routine Extremities Exam Present: edema, pulses intact, amputation, AV fistula Comments: Left arm AVF PC right chest - Routine Skin Exam Present: erythema, dry, warm, wounds, cracked - Routine Neurological Exam Present: alert, altered mental status, moving all extremities Results - Lab Results 07/10/18 05:59 07/10/18 05:59 Most recent lab results ABG pH 7.39 (7.380-7.420) 07/09/18 15:24 ABG pCO2 43 mmHg (38-42) H 07/09/18 15:24 ABG pO2 57 mmHg (61-120) L* 07/09/18 15:24 ABG HCO3 25 mmol/L (22-26) 07/09/18 15:24 Calcium 8.2 mg/dL (8.5-10.1) L 07/10/18 05:59 - Image Kidney/bladder ultrasound: other (not required) Assessment and Plan - Assessment (1) ESRD (end stage renal disease) on dialysis Code(s): N18.6 - End stage renal disease; Z99.2 - Dependence on renal dialysis Status: Acute Plan: Seen during dialysis today on a 2K, 350 BFR, goal of 3L He has edema on exam, will need more fluid removal next treatment Monitor electrolytes intermittently Avoid IVF administration AVF left arm is not mature, using a Perm Cath for HD. He has outpatient arrangements for HD in [place] (2) Acute alteration in mental status Code(s): R41.82 - Altered mental status, unspecified Status: Acute Plan: May be due to hypoxia or infection. Clinically improving. (3) Acute exacerbation of chronic obstructive pulmonary disease (COPD) Code(s): J44.1 - Chronic obstructive pulmonary disease with (acute) exacerbation Status: Acute Plan: On Vancomycin and Zosyn oxygen, nebulizers, pulmonary toilet/IS, supportive care. Monitor clinically (4) Anemia Code(s): D64.9 - Anemia, unspecified Status: Acute Plan: Epogen with dialysis as ordered (5) Foot pain Code(s): M79.673 - Pain in unspecified foot Status: Acute Plan: Vascular surgery has been consulted. <Mahendra Raines - Last Filed: 07/10/18 18:36> History of Present Illness Primary Care Provider: [facility] - Medical History Medical History: Medical History (Last Reviewed 07/10/18 @ 11:21 by Giselle Hayes) CKD (chronic kidney disease) requiring chronic dialysis COPD (chronic obstructive pulmonary disease) Dialysis patient HTN (hypertension) Myocardial infarct Oxygen dependent - Surgical History Surgical History: Surgical History (Last Reviewed 07/10/18 @ 11:21 by Giselle Hayes) H/O heart artery stent Hx of CABG S/P AAA repair Stented coronary artery Medications and Allergies Active Medications: Active Medications Acetaminophen (Tylenol) 650 mg PO Q4H PRN PRN Reason: Temp > 100.4 Acetaminophen (Tylenol) 650 mg PO UNSCH PRN PRN Reason: SEE LABEL COMMENTS Albuterol (Duoneb Neb (Prn)) 1 ampul NEB Q2HR NEB PRN PRN Reason: SHORTNESS OF BREATH/WHEEZING Last Admin: 07/10/18 09:30 Dose: 1 ampul Albuterol (Duoneb Neb (Vel)) 1 ampul NEB Q6HR WHILE AWAKE NEB VEL Last Admin: 07/10/18 16:08 Dose: 1 ampul Amlodipine Besylate (Norvasc) 10 mg PO DAILY [facility] Last Admin: 07/10/18 08:16 Dose: 10 mg Aspirin (Ecotrin) 81 mg PO DAILY [facility] Last Admin: 07/10/18 08:17 Dose: 81 mg Atorvastatin Calcium (Lipitor) 20 mg PO DAILY [facility] Last Admin: 07/10/18 08:16 Dose: 20 mg Bisacodyl (Dulcolax Supp) 10 mg RECTAL DAILY PRN PRN Reason: SEVERE CONSITIPATION Budesonide/Formoterol Fumarate (Symbicort 160/4.5 Mcg Inh) 2 puff INH BID [facility] Last Admin: 07/10/18 12:25 Dose: 2 puff Carvedilol (Coreg) 25 mg PO BID [facility] Last Admin: 07/10/18 08:16 Dose: 25 mg Clonidine HCl (Catapres) 0.1 mg PO UNSCH PRN PRN Reason: SEE LABEL COMMENTS Diphenhydramine HCl (Benadryl) 25 mg PO UNSCH PRN PRN Reason: SEE LABEL COMMENTS Epoetin Joshua (Epogen Inj) 10,000 unit IV.PUSH UNSCH PRN PRN Reason: SEE LABEL COMMENTS Last Admin: 07/10/18 10:54 Dose: 10,000 unit Gabapentin (Neurontin) 300 mg PO DAILY [facility] Last Admin: 07/10/18 08:17 Dose: 300 mg Gelatin (Gelfoam 12 Mm/7 Mm Topical) 1 foam TOPICAL PRN PRN PRN Reason: help stop bleeding from site Gentamicin Sulfate (Gentamicin Inj) 20 mg OTHER WITH DIALYSIS PRN PRN Reason: Dwell Gentamycin Lock Last Admin: 07/10/18 10:55 Dose: 20 mg Heparin Sodium (Porcine) (Heparin Inj) 8,000 units OTHER WITH DIALYSIS PRN PRN Reason: for machine prime Heparin Sodium (Porcine) (Heparin Inj) 1,000 units OTHER WITH DIALYSIS PRN PRN Reason: Dwell Heparin to Fill Catheter Last Admin: 07/10/18 10:55 Dose: 1,000 units Pharmacy Profile Note (Vancomycin Consult Pharmacy) 0 mls @ 0 mls/hr OTHER UNSCH [facility] Piperacillin/Tazobactam/Dextrose (Zosyn 2.25 Gm Premix) 50 mls @ 100 mls/hr IV.SIG Q8H [facility] Last Infusion: 07/10/18 13:20 Dose: Infused Albumin Human (Flexbumin 25% Inj) 100 mls @ 60 mls/hr IV.SIG WITH DIALYSIS PRN PRN Reason: hypotension / volume replace Sodium Chloride (Ns Inj) 1,000 mls @ 0 mls/hr OTHER .Q0M PRN PRN Reason: for prime and rinse back Sodium Chloride (Ns Inj) 1,000 mls @ 0 mls/hr IV.CONT .Q0M PRN PRN Reason: hypotension / volume replace Sodium Chloride (Ns Inj) 1,000 mls @ 200 mls/hr OTHER .Q5H PRN PRN Reason: for dialyzer flush PRN Lactulose (Lactulose Liq) 30 ml PO DAILY PRN PRN Reason: SEVERE CONSITIPATION Loratadine (Claritin) 20 mg PO DAILY [facility] Last Admin: 07/10/18 08:16 Dose: 20 mg Mannitol (Mannitol Inj) 12.5 gm IV.PUSH UNSCH PRN PRN Reason: hypotension / volume replace Methylprednisolone Sodium Succinate (Solumedrol Inj) 40 mg IV.PUSH Q8HR [facility] Last Admin: 07/10/18 13:52 Dose: 40 mg Nitroglycerin (Nitrostat Sl) 0.4 mg SL Q5M PRN PRN Reason: CHEST PAIN Ondansetron HCl (Zofran Inj) 4 mg IV.PUSH UNSCH PRN PRN Reason: NAUSEA OR VOMITING Oxycodone/Acetaminophen (Percocet 5/325 Mg) 1 tab PO Q4HR PRN PRN Reason: PAIN SCALE 6 TO 10 Pantoprazole Sodium (Protonix) 20 mg PO DAILY [facility] Last Admin: 07/10/18 08:17 Dose: 20 mg Senna/Docusate Sodium (Flor-Colace) 1 tab PO BID [facility] Last Admin: 07/10/18 08:16 Dose: 1 tab Sennosides (Senokot) 17.2 mg PO Q12H PRN PRN Reason: Moderate Constipation Sodium Chloride (Ns Flush) 2 ml IV.FLUSH PRN PRN PRN Reason: FLUSH AFTER USING IV ACCESS Sodium Chloride (Ns Flush) 5 ml IV.FLUSH PRN PRN PRN Reason: flush each lumen during HD Exam Vital signs: Vital Signs 07/09/18 19:25 07/09/18 20:38 07/09/18 21:45 Temperature 98.9 F Pulse Rate 76 73 Respiratory Rate 18 16 Blood Pressure 146/65 H Pulse Oximetry 98 94 L 07/10/18 00:28 07/10/18 04:57 07/10/18 07:00 Temperature 98.9 F 98.1 F Pulse Rate 66 69 75 Respiratory Rate 20 20 20 Blood Pressure 166/75 H 181/77 H 142/85 H Pulse Oximetry 96 95 97 07/10/18 09:29 07/10/18 12:25 07/10/18 13:40 Temperature 97.7 F 97.9 F Pulse Rate 75 76 76 Respiratory Rate 18 20 20 Blood Pressure 158/81 H 153/81 H Pulse Oximetry 97 97 07/10/18 16:00 07/10/18 16:09 07/10/18 17:01 Temperature 97.8 F 97.7 F Pulse Rate 88 86 78 Respiratory Rate 22 20 21 Blood Pressure 151/71 H 144/81 H Pulse Oximetry 97 96 97 07/10/18 18:00 Temperature 97.7 F Pulse Rate 71 Respiratory Rate 18 Blood Pressure 125/58 L Pulse Oximetry 98 Intake & Output 07/09/18 07/10/18 07/10/18 18:59 06:59 18:59 Intake Total 50 / 50 50 / 50 Output Total 3000 / 3000 Balance 50 / 50 -2950 / -2950 Weight 54.431 kg 64.7 kg Intake: IV 50 / 50 50 / 50 Zosyn 2.25 GM Premix 50 ML @ 50 / 50 50 / 50 100 mls/hr IV.SIG Q8H [facility] Rx#: [id number] Output: Hemodialysis Amount 3000 / 3000 Other: Weight On Admission 64.7 kg Results - Lab Results 07/10/18 05:59 07/10/18 05:59 Most recent lab results ABG pH 7.39 (7.380-7.420) 07/09/18 15:24 ABG pCO2 43 mmHg (38-42) H 07/09/18 15:24 ABG pO2 57 mmHg (61-120) L* 07/09/18 15:24 ABG HCO3 25 mmol/L (22-26) 07/09/18 15:24 Calcium 8.2 mg/dL (8.5-10.1) L 07/10/18 05:59 Assessment and Plan - Assessment (1) ESRD (end stage renal disease) on dialysis Code(s): N18.6 - End stage renal disease; Z99.2 - Dependence on renal dialysis Status: Acute (2) Acute alteration in mental status Code(s): R41.82 - Altered mental status, unspecified Status: Acute (3) Acute exacerbation of chronic obstructive pulmonary disease (COPD) Code(s): J44.1 - Chronic obstructive pulmonary disease with (acute) exacerbation Status: Acute (4) Anemia Code(s): D64.9 - Anemia, unspecified Status: Acute (5) Foot pain Code(s): M79.673 - Pain in unspecified foot Status: Acute - Attending Attestation patient was seen and examined. Agree with above assessment and plan. Demonstrates significant volume overload. May need dialysis again tomorrow. Chronically ill male, looks older than stated age. At risk for complications. <Renee Norton - Last Filed: 07/10/18 17:55> (4) Anemia Qualifiers: Anemia type: unspecified type Qualified Code(s): D64.9 - Anemia, unspecified (5) Foot pain Qualifiers: Laterality: right Qualified Code(s): M79.671 - Pain in right foot <Mahendra Raines - Last Filed: 07/10/18 18:36> (4) Anemia Qualifiers: Anemia type: unspecified type Qualified Code(s): D64.9 - Anemia, unspecified (5) Foot pain Qualifiers: Laterality: right Qualified Code(s): M79.671 - Pain in right foot
--- NOTE | 2018-07-10 16:32 | P.PNVS ---
Subjective Subjective/Hospital Course: 07/10/2018 Patient seen full consult dictated We will consult podiatry regarding the right foot problem. Based on recent abdominal aortic aneurysm endovascular stenting and pre-existing vascular problems in the right leg I highly recommend that patient be transferred or refer to the original vascular surgeon in [place] for dealing with all these problems at one place is certainly more beneficial than to spread out the care over half of [place] and sort of partition it. Thanks J Objective Vital Signs / I&O: Vital Signs 07/09/18 17:30 07/09/18 18:33 07/09/18 19:25 Temperature 102.1 F H Pulse Rate 76 74 76 Respiratory Rate 32 H 18 18 Blood Pressure Pulse Oximetry 91 L 98 07/09/18 20:38 07/09/18 21:45 07/10/18 00:28 Temperature 98.9 F Pulse Rate 73 66 Respiratory Rate 16 20 Blood Pressure 146/65 H 166/75 H Pulse Oximetry 94 L 96 07/10/18 04:57 07/10/18 07:00 07/10/18 09:29 Temperature 98.9 F 98.1 F Pulse Rate 69 75 75 Respiratory Rate 20 20 18 Blood Pressure 181/77 H 142/85 H Pulse Oximetry 95 97 07/10/18 12:25 07/10/18 13:40 07/10/18 16:00 Temperature 97.7 F 97.9 F 97.8 F Pulse Rate 76 76 88 Respiratory Rate 20 20 22 Blood Pressure 158/81 H 153/81 H 151/71 H Pulse Oximetry 97 97 97 07/10/18 16:09 Temperature Pulse Rate 86 Respiratory Rate 20 Blood Pressure Pulse Oximetry 96 Intake & Output 07/09/18 07/10/18 07/10/18 18:59 06:59 18:59 Intake Total 50 / 50 50 / 50 Output Total 3000 / 3000 Balance 50 / 50 -2950 / -2950 Weight 54.431 kg Intake: IV 50 / 50 50 / 50 Zosyn 2.25 GM Premix 50 ML @ 50 / 50 50 / 50 100 mls/hr IV.SIG Q8H [facility] Rx#: [id number] Output: Hemodialysis Amount 3000 / 3000 Laboratory Results - last 24 hr 07/09/18 07/09/18 07/09/18 12:39 14:49 18:52 WBC RBC Hgb Hct MCV MCH MCHC RDW Plt Count MPV Prelim Diff (Auto) Neut % (Auto) Lymph % (Auto) [place] % (Auto) Eos % (Auto) Baso % (Auto) Neut # (Auto) Lymph # (Auto) [place] # (Auto) Eos # (Auto) Baso # (Auto) WBC Differential . Diff Scan Auto diff confirmed Differential Comment Platelet Estimate Low L Platelet Morphology Enlarged H Ovalocytes 1+ H Keratocytes Sodium Potassium Chloride Carbon Dioxide Anion Gap BUN Creatinine Estimated GFR Random Glucose Lactic Acid 4.1 H* Calcium Ammonia 20 Folate RPR 07/09/18 07/09/18 07/10/18 18:52 18:52 05:59 WBC 4.3 RBC 2.61 L Hgb 7.9 L Hct 24.1 L MCV 92.5 MCH 30.4 MCHC 32.9 RDW 18.6 H Plt Count 46 L MPV 9.3 Prelim Diff (Auto) Slide review pending Neut % (Auto) 89.0 H Lymph % (Auto) 8.7 L [place] % (Auto) 2.1 Eos % (Auto) 0.0 Baso % (Auto) 0.2 Neut # (Auto) 3.8 Lymph # (Auto) 0.4 L [place] # (Auto) 0.1 Eos # (Auto) 0.0 Baso # (Auto) 0.0 WBC Differential . Diff Scan Auto diff confirmed Differential Comment . Platelet Estimate Low L Platelet Morphology Enlarged H Ovalocytes 1+ H Keratocytes Occ H Sodium Potassium Chloride Carbon Dioxide Anion Gap BUN Creatinine Estimated GFR Random Glucose Lactic Acid Calcium Ammonia Folate 19.6 H RPR Nonreactive 07/10/18 05:59 WBC RBC Hgb Hct MCV MCH MCHC RDW Plt Count MPV Prelim Diff (Auto) Neut % (Auto) Lymph % (Auto) [place] % (Auto) Eos % (Auto) Baso % (Auto) Neut # (Auto) Lymph # (Auto) [place] # (Auto) Eos # (Auto) Baso # (Auto) WBC Differential Diff Scan Differential Comment Platelet Estimate Platelet Morphology Ovalocytes Keratocytes Sodium 136 Potassium 5.3 H Chloride 102 Carbon Dioxide 22.4 Anion Gap 12 BUN 45 H Creatinine 6.16 H Estimated GFR 9 L Random Glucose 117 H Lactic Acid Calcium 8.2 L Ammonia Folate RPR Microbiology 07/09/18 18:19 Aerobic Blood Culture - Preliminary Blood - Peripheral No growth in 1 day Anaerobic Blood Culture - Preliminary No growth in 1 day 07/09/18 18:19 Aerobic Blood Culture - Preliminary Blood - Peripheral No growth in 1 day Anaerobic Blood Culture - Preliminary No growth in 1 day Impressions Foot X-Ray 07/09/18 14:13 CONCLUSION: 1. No fracture or subluxation demonstrated. 2. Nonspecific soft tissue swelling. 3. Enthesophyte and suspected tendinosis of distal Achilles. 4. Small heel spur. 5. Os peroneum. 6. 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 Venous Doppler Study 07/09/18 14:14 CONCLUSION: 1. No deep venous thrombosis in the right leg Head CT 07/09/18 14:49 CONCLUSION: No acute intracranial abnormality. . Chest X-Ray 07/09/18 14:50 CONCLUSION: Stable right basilar pleural-parenchymal density.
[2018-07-10 19:12] LABS: Baso % (Auto) 0.1 % (0.0-2.0); Hematocrit 25.9 % (39.0-51.0); Hemoglobin 8.5 gm/dL (13.0-17.0); Lymph # (Auto) 0.4 th/mm3 (1.0-4.8); Mean Corpuscular HGB Conc 32.7 % (32.0-36.0); Mean Corpuscular Volume 91.7 fL (80.0-100.0); Mean Platelet Volume 9.2 fL (7.0-11.0); Mono # (Auto) 0.2 th/mm3 (0.0-0.9); Mono % (Auto) 4.1 % (0.0-8.0); Neut # (Auto) 5.3 th/mm3 (1.8-7.7); Neut % (Auto) 88.8 % (16.0-70.0); Platelet Count 59 th/mm3 (150-450); Red Blood Count 2.83 mil/mm3 (4.50-5.90); Red Cell Distribution Width 18.7 % (11.6-17.2)
--- NOTE | 2018-07-10 19:21 | MB ---
cc: Rah Yung MD DATE: 07/10/2018 REASON FOR CONSULTATION: Status post abdominal aortic aneurysm stenting, ischemia of the right foot. CRITICAL CARE TIME: 38 minutes. HISTORY OF PRESENT ILLNESS: This 67-year-old male with multiple medical problems apparently underwent some sort of abdominal aortic aneurysm stenting in [place], where he was sent by the [facility]. Allegedly, he was enrolled in some sort of investigational protocol there, but I am not aware of which one. The patient states that he was discharged from there and then came up here to rehab and now presents with pain in his right foot. 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 PAST SURGICAL HISTORY: Coronary artery angioplasty and stenting, AAA repair, some sort of abdominal surgery. The patient has an incision there, but he does not know what it was. SOCIAL HISTORY: The patient never smoked. Drinks socially. PHYSICAL EXAMINATION: GENERAL: Reveals a 67-year-old male appearing much older than his actual age. HEENT: Normocephalic. No trauma to the head. Pupils are equal and reactive. Extraocular muscles are intact. NECK: Bilateral carotid pulses. No bruits. CHEST: Clear. Decreased breath sounds over both lung mosqueda. The patient has severe pulmonary cachexia with loss of chest musculature and retraction of the accessory muscles when breathing. HEART: Regular rhythm. ABDOMEN: Soft. No rebound, no guarding, no masses. EXTREMITIES: The patient initially has palpable femoral, palpable popliteal, palpable dorsalis pedis and posterior tibial pulses bilateral. On the left side, the foot is well perfused. On the right side, the proximal foot is perfused, but distally, the patient has gangrene of the second, third, fourth and fifth toes and the hallux does not look that well either and starting to turn dusky. NEUROLOGIC: The patient is grossly intact. ASSESSMENT AND PLAN: I inquired about the situation of his right foot and the patient states that this right foot has been ischemic for months, about 4-5 months. He has had changes in his toes and this slowly turned dark and then black. Apparently, this happened way before he had the stenting. I am not sure which doctor he has been seeing and where, but it goes back to the [facility] some sorts. So all in all, several issues arise. 1. The patient had abdominal aortic aneurysm stenting in [facility], [place] and for followup, he should go there. I will not accept patients in followup from another surgeon after this procedure. 2. The patient has clearly chronic ischemia of the right foot, probably a trash foot threw some clots or debris down into the foot and hence the changes. According to the patient, that happened about 4-5 months ago and has been progressively worse. Now, he has dry gangrene of the 4 toes, and the great toe does not look that healthy either and seems to be going the same way. This patient has renal insufficiency and is on dialysis since mid May when he had the endovascular graft placed, so I do not know if this is reversible or not, but right now, based on clinical exam, I am not going to subject the patient to a CTA with runoff and load him with dye as clinical exam does not reveal large vessel disease. While he may have some stenotic areas proximal to his groin, clearly inflow is intact and outflow is intact except for the right foot. As far as foot care is concerned, podiatry will be consulted. Based on all the above, I would definitely recommend that the best course of action should be to transfer the patient back to [place] to his original surgeon or refer him there where he can have the podiatry care, vascular care and everything in one place. This segmented partial care in several places does not work out well most of the time. I thank you very much for the referral. I will be available for any other issues. In the meantime, podiatry will be consulted. MD EVANS Hemphill/shannon , 04:30 PM , 04:43 PM
[2018-07-10 20:45] LABS: Lymphocytes 3 % (9-44); Monocytes 3 % (0-8)
[2018-07-10 20:46] LABS: Acanthocytes Occ; Burr Cells 1+; Ovalocytes 1+; Platelet Morphology Normal (Normal); Toxic Granulation 3+
--- NOTE | 2018-07-10 23:29 | MB ---
cc: Tien FuM DATE: 07/10/2018 REASON FOR CONSULTATION: Right foot, possible progressive gangrene, ischemic digits. HISTORY OF PRESENT ILLNESS: This is a 67-year-old male who apparently was admitted to the hospital for worsening foot pain, possible altered mental status. The patient is status post abdominal aortic aneurysm repair and stenting on 06/15/2018. He reports he follows with vascular surgery from [facility]. Was enrolled in some investigational study, unclear to what extent The son reports the patient has been at [facility], but developed altered mental status with increasing right foot pain and sent to the ER. The patient was examined; lethargic, but arousable to touch. Nurse reported a temperature of 102. CBC revealed anemia, thrombocytopenia with platelets of 53. The patient has been evaluated by vascular at this point with recommendation to follow up with her original surgeon. Upon trying to obtain the best history regarding the foot, it appears that the foot has looked the same for quite some time. The pain is increased currently. PAST MEDICAL HISTORY: Positive for chronic kidney disease, COPD, dialysis, hypertension, LA, oxygen dependent, abdominal aortic aneurysm, CAD, COPD, high cholesterol, hypertension, renal failure, peripheral vascular disease, coronary artery stenting, history of tobacco use, surgical note with recent endovascular graft repair of aneurysm. PAST SURGICAL HISTORY: As previously stated, history of heart stenting, CABG, AAA repair, stenting coronary artery. INPATIENT MEDICATIONS: Reviewed. Prescribed nitroglycerin to the ischemic digits. At the time of consultation, the patient is receiving IV antibiotics. Please see complete medication list. SOCIAL HISTORY: None listed. PHYSICAL EXAMINATION: VITAL SIGNS: Temperature is 98, pulse rate 77, respiratory rate 18, blood pressure 143/65, saturating at 100% on 4 liters nasal cannula. GENERAL: This is an alert and oriented male seen at bedside. He appears to be underweight. No acute distress. Nonlabored respiration. EXTREMITIES: Right lower extremity was examined. There was noted to be a blue discoloration of the patient's right hallux. There are obvious dry stable gangrenous changes to the distal aspect of the lesser digits. It appears to mostly involve the fifth and third digit. There is no odor. There is pain upon palpating the area. The digits appear slightly cool upon palpation. Pulses are decreased, but they are very audible via Doppler. Left lower extremity is free from any obvious lesions. No crepitus or instability upon range of motion of forefoot, hindfoot and ankle. There is pain upon range of motion of the digits, specifically of the right. LABORATORY DATA: White blood cells 6, hemoglobin and hematocrit 8 and 25, platelet count 59. Chem-7: Sodium 136, potassium 5.3, chloride 102, CO2 22.4, BUN is 45, creatinine 6.16. Microbial findings: blood culture no growth 1 day. ASSESSMENT AND PLAN: Right lower extremity stable distal gangrenous ischemic changes to the lesser digits. My recommendation is nitroglycerin paste warming of the extremity and to observe. This appears to be stable at this point. I do agree with vascular surgery that we should stabilize the patient and he should likely follow up with his vascular surgeon, and likely coordinate the care. We will continue to follow along. No surgery indicated at this point. DEE Jeffrey/meek , 10:35 PM , 10:43 PM
[2018-07-11] MEDS: Piperacil/Tazo 2.25 GM Premix 50 ML IV.SIG SCH ×3 (02:22→17:25)
[2018-07-11] MEDS: MethylPREDNISolone Sod Succinate Inj 40 MG/ML Vial IV.PUSH SCH ×2 (05:08→13:19)
[2018-07-11] MEDS: Gabapentin 300 MG Capsule PO SCH (09:37)
[2018-07-11] MEDS: Pantoprazole Sodium 20 MG DR Tablet PO SCH (09:37)
[2018-07-11] MEDS: Loratadine 10 MG Tablet PO SCH (09:37)
[2018-07-11] MEDS: Senna/Docusate Sodium 8.6/50 MG Tablet PO SCH ×2 (09:38→22:22)
[2018-07-11] MEDS: Carvedilol 12.5 MG Tablet PO SCH ×2 (09:38→22:23)
[2018-07-11] MEDS: Budesonide-Formoterol 160/4.5 MCG 6 GM Inhaler INH SCH (09:38)
[2018-07-11] MEDS: amLODIPine 10 MG Tablet PO SCH (09:38)
[2018-07-11] MEDS ORDERED: Vancomycin Inj 1,250 MG in Sodium Chlor 0.9% Inj 250 ML IV.SIG ONE (11:00)
--- NOTE | 2018-07-11 11:38 | P.PNVS ---
Subjective Subjective/Hospital Course: 07/10/2018 Patient seen full consult dictated We will consult podiatry regarding the right foot problem. Based on recent abdominal aortic aneurysm endovascular stenting and pre-existing vascular problems in the right leg I highly recommend that patient be transferred or refer to the original vascular surgeon in [place] for dealing with all these problems at one place is certainly more beneficial than to spread out the care over half of [place] and sort of partitioning it. Thanks J 07/11/[address] Fu appreciated and I fully agree with his approach Patient is hemodynamically stable doing well foot looks the same somewhat swollen and distally ischemic as noted yesterday I inquired about the situation of his right foot and the patient states that this right foot has been ischemic for months, about 4-5 months. He has had changes in his toes and this slowly turned dark and then black. Apparently, this happened way before he had the stenting. I am not sure which doctor he has been seeing and where, but it goes back to the [facility] sorts. So all in all, several issues arise. 1. The patient had abdominal aortic aneurysm stenting in [facility] and for followup , he should go there. I will not accept patients in followup from another surgeon after this procedure. 2. The patient has clearly chronic ischemia of the right foot, probably a trash foot threw some clots or debris down into the foot and hence the changes. According to the patient, that happened about 4-5 months ago and has been progressively worse. Now, he has dry gangrene of the 4 toes, and the great toe does not look that healthy either and seems to be going the same way. This patient has renal insufficiency and is on dialysis since mid May when he had the endovascular graft placed, so I do not know if this is reversible or not, but right now, based on clinical exam, I am not going to subject the patient to a CTA with runoff and load him with dye as clinical exam does not reveal large vessel disease. While he may have some stenotic areas proximal to his groin, clearly inflow is intact and outflow is intact except for the right foot. As far as foot care is concerned, podiatry Dr. Fu is consulted and podiatry care is appreciated. Based on all the above, I would definitely recommend and urge that the best course of action should be to transfer the patient back to [place] to his original surgeon or refer him there where he can have the podiatry care, vascular care and everything in one place. This segmented partial care in several places does not work out well most of the time. Objective Vital Signs / I&O: Vital Signs 07/10/18 12:25 07/10/18 13:40 07/10/18 16:00 Temperature 97.7 F 97.9 F 97.8 F Pulse Rate 76 76 88 Respiratory Rate 20 20 22 Blood Pressure 158/81 H 153/81 H 151/71 H Pulse Oximetry 97 97 97 07/10/18 16:09 07/10/18 17:01 07/10/18 18:00 Temperature 97.7 F 97.7 F Pulse Rate 86 78 71 Respiratory Rate 20 21 18 Blood Pressure 144/81 H 125/58 L Pulse Oximetry 96 97 98 07/10/18 20:00 07/11/18 00:00 07/11/18 03:27 Temperature 98 F 97.7 F Pulse Rate 63 63 66 Respiratory Rate 16 18 19 Blood Pressure 143/65 H 132/62 Pulse Oximetry 100 100 95 07/11/18 04:00 07/11/18 05:08 07/11/18 07:38 Temperature 97 F L Pulse Rate 61 Respiratory Rate 18 16 Blood Pressure 136/62 Pulse Oximetry 100 95 07/11/18 08:00 Temperature 97.2 F L Pulse Rate 62 Respiratory Rate 18 Blood Pressure 153/69 H Pulse Oximetry 98 Intake & Output 07/10/18 07/11/18 07/11/18 18:59 06:59 18:59 Intake Total 50 / 50 100 / 100 Output Total 3000 / 3000 Balance -2950 / -2950 100 / 100 Weight 64.7 kg 67 kg Intake: IV 50 / 50 100 / 100 Zosyn 2.25 GM Premix 50 ML @ 50 / 50 100 / 100 100 mls/hr IV.SIG Q8H MANJU Rx#: [id number] Output: Hemodialysis Amount 3000 / 3000 Other: Weight On Admission 64.7 kg Laboratory Results - last 24 hr 07/10/18 07/11/18 18:24 05:50 WBC 6.0 RBC 2.83 L Hgb 8.5 L Hct 25.9 L MCV 91.7 MCH 30.0 MCHC 32.7 RDW 18.7 H Plt Count 59 L MPV 9.2 Prelim Diff (Auto) Slide review pending Neut % (Auto) 88.8 H Lymph % (Auto) 7.0 L [place] % (Auto) 4.1 Eos % (Auto) 0.0 Baso % (Auto) 0.1 Neut # (Auto) 5.3 Lymph # (Auto) 0.4 L [place] # (Auto) 0.2 Eos # (Auto) 0.0 Baso # (Auto) 0.0 WBC Differential Manual diff final Seg Neuts % (Manual) 90 H Band Neuts % (Manual) 4 Lymphocytes % (Manual) 3 L Monocytes % (Manual) 3 Abs Neuts (Manual) 5.6 Differential Comment . Toxic Granulation 3+ H Platelet Estimate Low L Platelet Morphology Normal Ovalocytes 1+ H Brandon Cells 1+ H Acanthocytes (Spur) Occ H Random Vancomycin 10.7 Microbiology 07/09/18 18:19 Aerobic Blood Culture - Preliminary Blood - Peripheral No growth in 2 days Anaerobic Blood Culture - Preliminary No growth in 2 days 07/09/18 18:19 Aerobic Blood Culture - Preliminary Blood - Peripheral No growth in 2 days Anaerobic Blood Culture - Preliminary No growth in 2 days Impressions Foot X-Ray 07/09/18 14:13 CONCLUSION: 1. No fracture or subluxation demonstrated. 2. Nonspecific soft tissue swelling. 3. Enthesophyte and suspected tendinosis of distal Achilles. 4. Small heel spur. 5. Os peroneum. 6. 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 Venous Doppler Study 07/09/18 14:14 CONCLUSION: 1. No deep venous thrombosis in the right leg Head CT 07/09/18 14:49 CONCLUSION: No acute intracranial abnormality. . Chest X-Ray 07/09/18 14:50 CONCLUSION: Stable right basilar pleural-parenchymal density.
--- NOTE | 2018-07-11 14:34 | P.PNNP ---
Subjective Interval history: Resting peacefully on bed. Offers no complaints. Notes from podiatry and vascular surgery reviewed. Physical Exam Vital signs: Vital Signs 07/10/18 16:00 07/10/18 16:09 07/10/18 17:01 Temperature 97.8 F 97.7 F Pulse Rate 88 86 78 Respiratory Rate 22 20 21 Blood Pressure 151/71 H 144/81 H Pulse Oximetry 97 96 97 07/10/18 18:00 07/10/18 20:00 07/11/18 00:00 Temperature 97.7 F 98 F 97.7 F Pulse Rate 71 63 63 Respiratory Rate 18 16 18 Blood Pressure 125/58 L 143/65 H 132/62 Pulse Oximetry 98 100 100 07/11/18 03:27 07/11/18 04:00 07/11/18 05:08 Temperature 97 F L Pulse Rate 66 61 Respiratory Rate 19 18 16 Blood Pressure 136/62 Pulse Oximetry 95 100 07/11/18 07:38 07/11/18 08:00 07/11/18 12:00 Temperature 97.2 F L 97.8 F Pulse Rate 62 57 L Respiratory Rate 18 18 Blood Pressure 153/69 H 128/58 L Pulse Oximetry 95 98 98 07/11/18 14:01 Temperature Pulse Rate 60 Respiratory Rate 12 Blood Pressure Pulse Oximetry Intake & Output 07/10/18 07/11/18 07/11/18 18:59 06:59 18:59 Intake Total 50 / 50 100 / 100 50 / 50 Output Total 3000 / 3000 Balance -2950 / -2950 100 / 100 50 / 50 Weight 64.7 kg 67 kg Intake: IV 50 / 50 100 / 100 50 / 50 Zosyn 2.25 GM Premix 50 ML @ 50 / 50 100 / 100 50 / 50 100 mls/hr IV.SIG Q8H [facility] Rx#: [id number] Output: Hemodialysis Amount 3000 / 3000 Other: Weight On Admission 64.7 kg - Constitutional no acute distress - Routine HEENT Exam Head: Present: normocephalic, atraumatic - Routine Respiratory Exam Present: rhonchi, wheezes - Routine Cardiovascular Exam Present: S1, S2 - Routine Abdominal Exam Present: soft - Routine Extremities Exam Present: edema Comments: ischemic appearing ulcers on his right foot toes. - Routine Neurological Exam Present: alert, oriented X3 Assessment and Plan - Assessment (1) ESRD (end stage renal disease) on dialysis Code(s): N18.6 - End stage renal disease; Z99.2 - Dependence on renal dialysis Status: Acute Plan: Dialysis MWF. He has edema on exam, will need more fluid removal next treatment Monitor electrolytes intermittently Avoid IVF administration AVF left arm is not mature, using a Perm Cath for HD. He has outpatient arrangements for HD in [place] (2) Acute alteration in mental status Code(s): R41.82 - Altered mental status, unspecified Status: Acute Plan: May be due to hypoxia or infection. Clinically improving. (3) Acute exacerbation of chronic obstructive pulmonary disease (COPD) Code(s): J44.1 - Chronic obstructive pulmonary disease with (acute) exacerbation Status: Acute Plan: Received Vancomycin, is on Zosyn. oxygen, nebulizers, pulmonary toilet/IS, supportive care. Monitor clinically (4) Anemia Code(s): D64.9 - Anemia, unspecified Status: Acute Qualifiers: Anemia type: unspecified type Qualified Code(s): D64.9 - Anemia, unspecified Plan: Epogen with dialysis as ordered (5) Foot pain Code(s): M79.673 - Pain in unspecified foot Status: Acute Qualifiers: Laterality: right Qualified Code(s): M79.671 - Pain in right foot Plan: Vascular surgery has been consulted. No plans for surgery.
--- NOTE | 2018-07-11 15:23 | P.PN ---
Subjective Interval history: laying flat in bed awake and alert, no complains of chest pain or shortness of breath does have foot pain no diarrhea good po Physical Exam Vital signs: Vital Signs 07/10/18 16:00 07/10/18 16:09 07/10/18 17:01 Temperature 97.8 F 97.7 F Pulse Rate 88 86 78 Respiratory Rate 22 20 21 Blood Pressure 151/71 H 144/81 H Pulse Oximetry 97 96 97 07/10/18 18:00 07/10/18 20:00 07/11/18 00:00 Temperature 97.7 F 98 F 97.7 F Pulse Rate 71 63 63 Respiratory Rate 18 16 18 Blood Pressure 125/58 L 143/65 H 132/62 Pulse Oximetry 98 100 100 07/11/18 03:27 07/11/18 04:00 07/11/18 05:08 Temperature 97 F L Pulse Rate 66 61 Respiratory Rate 19 18 16 Blood Pressure 136/62 Pulse Oximetry 95 100 07/11/18 07:38 07/11/18 08:00 07/11/18 12:00 Temperature 97.2 F L 97.8 F Pulse Rate 62 57 L Respiratory Rate 18 18 Blood Pressure 153/69 H 128/58 L Pulse Oximetry 95 98 98 07/11/18 14:01 Temperature Pulse Rate 60 Respiratory Rate 12 Blood Pressure Pulse Oximetry Intake & Output 07/10/18 07/11/18 07/11/18 18:59 06:59 18:59 Intake Total 50 / 50 100 / 100 312.5 / 312.5 Output Total 3000 / 3000 Balance -2950 / -2950 100 / 100 312.5 / 312.5 Weight 64.7 kg 67 kg Intake: IV 50 / 50 100 / 100 312.5 / 312.5 Zosyn 2.25 GM Premix 50 ML @ 50 / 50 100 / 100 50 / 50 100 mls/hr IV.SIG Q8H MANJU Rx#: [id number] Vancomycin Inj 1,250 MG In NS 262.5 / 262.5 Inj 250 ML @ 250 mls/hr IV.SIG ONCE ONE Rx#:[id number] Output: Hemodialysis Amount 3000 / 3000 Other: Weight On Admission 64.7 kg Narrative: awake and alert, no distress anicteric no nuchal rigdity right upper chest wall- HD access in place lungs- no rales regular rhythm abdomen- soft, good bowel sounds extremities ++edema bilateral right > left right foot - ischemic toes- right big toe - lateral aspect, tip of 2nd-5th toes black - , Difficult to palpate pulses moves all extremities spontaenously Results - Labs CBC & Chem 7: 07/10/18 18:24 07/10/18 05:59 Laboratory Results - last 24 hr 07/10/18 08 18:24 05:50 WBC 6.0 RBC 2.83 L Hgb 8.5 L Hct 25.9 L MCV 91.7 MCH 30.0 MCHC 32.7 RDW 18.7 H Plt Count 59 L MPV 9.2 Prelim Diff (Auto) Slide review pending Neut % (Auto) 88.8 H Lymph % (Auto) 7.0 L [place] % (Auto) 4.1 Eos % (Auto) 0.0 Baso % (Auto) 0.1 Neut # (Auto) 5.3 Lymph # (Auto) 0.4 L [place] # (Auto) 0.2 Eos # (Auto) 0.0 Baso # (Auto) 0.0 WBC Differential Manual diff final Seg Neuts % (Manual) 90 H Band Neuts % (Manual) 4 Lymphocytes % (Manual) 3 L Monocytes % (Manual) 3 Abs Neuts (Manual) 5.6 Differential Comment . Toxic Granulation 3+ H Platelet Estimate Low L Platelet Morphology Normal Ovalocytes 1+ H Brandon Cells 1+ H Acanthocytes (Spur) Occ H Random Vancomycin 10.7 Microbiology 07/09/18 18:19 Blood - Peripheral Aerobic Blood Culture - Preliminary No growth in 2 days 07/09/18 18:19 Blood - Peripheral Anaerobic Blood Culture - Preliminary No growth in 2 days 07/09/18 18:19 Blood - Peripheral Aerobic Blood Culture - Preliminary No growth in 2 days 07/09/18 18:19 Blood - Peripheral Anaerobic Blood Culture - Preliminary No growth in 2 days Assessment and Plan - Assessment (1) Acute alteration in mental status Code(s): R41.82 - Altered mental status, unspecified Status: Acute (2) Acute exacerbation of chronic obstructive pulmonary disease (COPD) Code(s): J44.1 - Chronic obstructive pulmonary disease with (acute) exacerbation Status: Acute (3) Anemia Code(s): D64.9 - Anemia, unspecified Status: Acute (4) Foot pain Code(s): M79.673 - Pain in unspecified foot Status: Acute - Plan 67-year-old male with past medical history significant for coronary artery disease status post stenting, CABG, COPD with chronic oxygen use, stage IV chronic kidney disease on hemodialysis Friday, Friday, Friday, neuropathy, peripheral vascular disease, abdominal aneurysm s/p repair and stenting on . Discharge to rehabilitation center, developed altered mental status and increased right foot pain. //AAA s/p repair and stenting -BP control, seen by [facility] //Chronic foot ischemia with dry gangrenous toes- all toes right foot Right foot pain- - ischemic changes sounds chronic by history -Cellulitis versus ischemia -Right lower extremity Doppler ultrasound negative -As needed Percocet for pain, continue gabapentin. Nitroglycerin patch to foot = 07/11. seen by Vascular/Podiatry - Appreciate assistance. Recommends transfer back to where bypass was done //Altered mental status- IMproved -CT of the head negative for acute abnormality -Blood gas with low PO2 at 57 and low O2 saturation, possibly contributing, could also be related to underlying infection/pneumonia - //Healthcare acquired pneumonia/COPD exacerbation -Chest x-ray with stable right basilar pleuralparenchymal densities, T-max in ED 102- T down -Blood cultures 2 obtained -Given IV vancomycin and Zosyn in ED -Continue IV antibiotics, consult pharmacy for vancomycin dosing -Antipyretics as needed -Scheduled duo nebs, Solu-Medrol every 6 hours- DC Solumedrol-today 07/11 -Continue home Symbicort = Continues on antibiotics. Respiratory status improved. //End-stage renal disease -On HD M/W/F ++ edema on exam, AVF left arm is not mature, using a Perm Cath for HD. He has outpatient arrangements for HD in [place] [facility] //Anemia, thromboytopenia Pancytopenia -Last platelet and PRBC transfusionon -Continue monitoring labs =recheck CBC in am DVT prophylaxis-SCDs, hold off on chemical prophylaxis due to thrombocytopenia Discharge Planning: Continues inpatient treatment for pneumonia PT following. will need rehab Follow-up vascular surgery recommendations. 07/11 Per patient- had Vascular procedure done about 1 1/2 months ago at [facility]- Vascular surgeon is Dr. Flores ischemic ahnges of the foot were there even before bypass procedure- Since procedure- toes are ischemic chronically and there was a plan of possibly doing an eventual amputation of the forefoot I told him to have his son bring in phone number of Dr. Flores for us to call on Friday He needs to be transferred back there for further management and be reevaluated by the [facility] surgeon there Podiatry and Vascular surgery are in agreement that he should go back to [facility]- - original surgeons to manage this we will ask our CM to help us and contact family (3) Anemia Qualifiers: Anemia type: unspecified type Qualified Code(s): D64.9 - Anemia, unspecified (4) Foot pain Qualifiers: Laterality: right Qualified Code(s): M79.671 - Pain in right foot
[2018-07-12] MEDS: Piperacil/Tazo 2.25 GM Premix 50 ML IV.SIG SCH ×3 (02:18→17:29)
[2018-07-12] MEDS: Budesonide-Formoterol 160/4.5 MCG 6 GM Inhaler INH SCH ×3 (02:22→21:42)
[2018-07-12] MEDS: Pantoprazole Sodium 20 MG DR Tablet PO SCH (09:26)
[2018-07-12] MEDS: amLODIPine 10 MG Tablet PO SCH (09:26)
[2018-07-12] MEDS: Senna/Docusate Sodium 8.6/50 MG Tablet PO SCH ×2 (09:26→21:40)
[2018-07-12] MEDS: Gabapentin 300 MG Capsule PO SCH (09:26)
[2018-07-12] MEDS: Carvedilol 12.5 MG Tablet PO SCH ×2 (09:27→21:40)
[2018-07-12] MEDS: Loratadine 10 MG Tablet PO SCH (09:27)
--- NOTE | 2018-07-12 09:51 | P.PNIM ---
Subjective Interval history: f/u; gangrene right foot in no acute distress. denies pain. no fever. Physical Exam Vital signs: Vital Signs 07/11/18 12:00 07/11/18 14:01 07/11/18 16:00 Temperature 97.8 F 97.4 F L Pulse Rate 57 L 60 58 L Respiratory Rate 18 12 18 Blood Pressure 128/58 L 127/60 Pulse Oximetry 98 97 07/11/18 20:00 07/11/18 20:17 07/11/18 20:18 Temperature 97.4 F L Pulse Rate 62 60 Respiratory Rate 20 16 Blood Pressure 146/64 H Pulse Oximetry 97 94 L 07/12/18 00:00 07/12/18 04:00 07/12/18 06:43 Temperature 97.3 F L 97.5 F L Pulse Rate 55 L 58 L 55 L Respiratory Rate 17 16 19 Blood Pressure 107/57 L 121/59 L Pulse Oximetry 100 99 07/12/18 08:00 Temperature 98.1 F Pulse Rate 53 L Respiratory Rate 18 Blood Pressure 115/75 Pulse Oximetry 100 Intake & Output 07/11/18 07/12/18 07/12/18 18:59 06:59 18:59 Intake Total 482.5 / 482.5 405 / 405 Balance 482.5 / 482.5 405 / 405 Intake: IV 362.5 / 362.5 50 / 50 Zosyn 2.25 GM Premix 50 ML @ 100 / 100 50 / 50 100 mls/hr IV.SIG Q8H [facility] Rx#: [id number] Vancomycin Inj 1,250 MG In NS 262.5 / 262.5 Inj 250 ML @ 250 mls/hr IV.SIG ONCE ONE Rx#:[id number] Oral 120 / 120 355 / 355 - Constitutional no acute distress - Routine Respiratory Exam Present: CTA bilaterally - Routine Cardiovascular Exam Present: RRR - Routine Abdominal Exam Present: soft - Routine Extremities Exam Comments: blackish discoloration of the right toes. - Routine Neurological Exam Present: alert, oriented X3 Results - Labs CBC & Chem 7: 07/10/18 18:24 07/10/18 05:59 Microbiology 07/09/18 18:19 Blood - Peripheral Aerobic Blood Culture - Preliminary No growth in 2 days 07/09/18 18:19 Blood - Peripheral Anaerobic Blood Culture - Preliminary No growth in 2 days 07/09/18 18:19 Blood - Peripheral Aerobic Blood Culture - Preliminary No growth in 2 days 07/09/18 18:19 Blood - Peripheral Anaerobic Blood Culture - Preliminary No growth in 2 days Assessment and Plan - Assessment (1) Acute alteration in mental status Code(s): R41.82 - Altered mental status, unspecified Status: Acute (2) Acute exacerbation of chronic obstructive pulmonary disease (COPD) Code(s): J44.1 - Chronic obstructive pulmonary disease with (acute) exacerbation Status: Acute (3) Anemia Code(s): D64.9 - Anemia, unspecified Status: Acute (4) Foot pain Code(s): M79.673 - Pain in unspecified foot Status: Acute - Plan 67-year-old male with past medical history significant for coronary artery disease status post stenting, CABG, COPD with chronic oxygen use, stage IV chronic kidney disease on hemodialysis Friday, Friday, Friday, neuropathy, peripheral vascular disease, abdominal aneurysm s/p repair and stenting on . Discharge to rehabilitation center, developed altered mental status and increased right foot pain. //AAA s/p repair and stenting -BP control, seen by Vascular //Chronic foot ischemia with dry gangrenous toes- all toes right foot Right foot pain- - ischemic changes sounds chronic by history -Cellulitis versus ischemia -Right lower extremity Doppler ultrasound negative -As needed Percocet for pain, continue gabapentin. Nitroglycerin patch to foot = 07/11. seen by Vascular/Podiatry - Appreciate assistance. Recommends transfer back to where bypass was done //Altered mental status- Improved -CT of the head negative for acute abnormality -Blood gas with low PO2 at 57 and low O2 saturation, possibly contributing, could also be related to underlying infection/pneumonia - //Healthcare acquired pneumonia/COPD exacerbation -Chest x-ray with stable right basilar pleuralparenchymal densities, T-max in ED 102- T down -Blood cultures 2 obtained -Given IV vancomycin and Zosyn in ED -Continue IV antibiotics, consulted pharmacy for vancomycin dosing -Antipyretics as needed -Scheduled duo nebs, Solu-Medrol discontinued. -Continue home Symbicort = Continues on antibiotics. Respiratory status improved. //End-stage renal disease -On HD M/W/F ++ edema on exam, AVF left arm is not mature, using a Perm Cath for HD. He has outpatient arrangements for HD in [facility] //Anemia, thromboytopenia Pancytopenia -Last platelet and PRBC transfusionon -Continue monitoring labs =recheck CBC in am DVT prophylaxis-SCDs, hold off on chemical prophylaxis due to thrombocytopenia Discharge Planning: Continues inpatient treatment for pneumonia PT following. will need rehab Follow-up vascular surgery recommendations. 07/11 Per patient- had Vascular procedure done about 1 1/2 months ago at [facility]- Vascular surgeon is Dr. Flores ischemic ahnges of the foot were there even before bypass procedure- Since procedure- toes are ischemic chronically and there was a plan of possibly doing an eventual amputation of the forefoot the sone was told to bring in phone number of Dr. Flores for us to call on Friday He needs to be transferred back there for further management and be reevaluated by the [facility] surgeon there Podiatry and Vascular surgery are in agreement that he should go back to [facility]- - original surgeons to manage this Discharge Planning: plan to transfer back to [facility]- the son will bring the surgeon's number tomorrow. (3) Anemia Qualifiers: Anemia type: unspecified type Qualified Code(s): D64.9 - Anemia, unspecified (4) Foot pain Qualifiers: Laterality: right Qualified Code(s): M79.671 - Pain in right foot
--- NOTE | 2018-07-12 12:02 | P.PNNP ---
Subjective Interval history: patient is resting peacefully. No obvious distress, ill appearing, frail. Physical Exam Vital signs: Vital Signs 07/11/18 14:01 07/11/18 16:00 07/11/18 20:00 Temperature 97.4 F L 97.4 F L Pulse Rate 60 58 L 62 Respiratory Rate 12 18 20 Blood Pressure 127/60 146/64 H Pulse Oximetry 97 97 07/11/18 20:17 07/11/18 20:18 07/12/18 00:00 Temperature 97.3 F L Pulse Rate 60 55 L Respiratory Rate 16 17 Blood Pressure 107/57 L Pulse Oximetry 94 L 100 07/12/18 04:00 07/12/18 06:43 07/12/18 08:00 Temperature 97.5 F L 98.1 F Pulse Rate 58 L 55 L 54 L Respiratory Rate 16 19 18 Blood Pressure 121/59 L 115/75 Pulse Oximetry 99 100 Intake & Output 07/11/18 07/12/18 07/12/18 18:59 06:59 18:59 Intake Total 482.5 / 482.5 405 / 405 50 / 50 Balance 482.5 / 482.5 405 / 405 50 / 50 Intake: IV 362.5 / 362.5 50 / 50 50 / 50 Zosyn 2.25 GM Premix 50 ML @ 100 / 100 50 / 50 50 / 50 100 mls/hr IV.SIG Q8H [facility] Rx#: [id number] Vancomycin Inj 1,250 MG In NS 262.5 / 262.5 Inj 250 ML @ 250 mls/hr IV.SIG ONCE ONE Rx#:[id number] Oral 120 / 120 355 / 355 Narrative: awake and alert, no distress anicteric right upper chest wall- HD access in place (PermCath) lungs- bilateral wheezing and rhonchi regular rhythm abdomen- soft, good bowel sounds extremities ++edema bilateral right > left right foot - ischemic toes- right big toe - lateral aspect, tip of 2nd-5th toes black - , Difficult to palpate pulses moves all extremities spontaneously Assessment and Plan - Assessment (1) ESRD (end stage renal disease) on dialysis Code(s): N18.6 - End stage renal disease; Z99.2 - Dependence on renal dialysis Status: Acute Plan: Dialysis MWF. He has edema on exam, will need more fluid removal next treatment Monitor electrolytes intermittently Avoid IVF administration AVF left arm is not mature, using a Perm Cath for HD. He has outpatient arrangements for HD in [place] (2) Acute alteration in mental status Code(s): R41.82 - Altered mental status, unspecified Status: Acute Plan: May be due to hypoxia or infection. Resolved. (3) Acute exacerbation of chronic obstructive pulmonary disease (COPD) Code(s): J44.1 - Chronic obstructive pulmonary disease with (acute) exacerbation Status: Acute Plan: Received Vancomycin, is on Zosyn. oxygen, nebulizers, pulmonary toilet/IS, supportive care. Monitor clinically (4) Anemia Code(s): D64.9 - Anemia, unspecified Status: Acute Qualifiers: Anemia type: unspecified type Qualified Code(s): D64.9 - Anemia, unspecified Plan: Epogen with dialysis as ordered (5) Foot pain Code(s): M79.673 - Pain in unspecified foot Status: Acute Qualifiers: Laterality: right Qualified Code(s): M79.671 - Pain in right foot Plan: Vascular surgery has been consulted. No plans for surgery.
--- NOTE | 2018-07-12 12:26 | P.PNPOD ---
Subjective Interval history: Right foot pain remains, no events. Physical Exam Vital signs: Vital Signs 07/11/18 14:01 07/11/18 16:00 07/11/18 20:00 Temperature 97.4 F L 97.4 F L Pulse Rate 60 58 L 62 Respiratory Rate 12 18 20 Blood Pressure 127/60 146/64 H Pulse Oximetry 97 97 07/11/18 20:17 07/11/18 20:18 07/12/18 00:00 Temperature 97.3 F L Pulse Rate 60 55 L Respiratory Rate 16 17 Blood Pressure 107/57 L Pulse Oximetry 94 L 100 07/12/18 04:00 07/12/18 06:43 07/12/18 08:00 Temperature 97.5 F L 98.1 F Pulse Rate 58 L 55 L 54 L Respiratory Rate 16 19 18 Blood Pressure 121/59 L 115/75 Pulse Oximetry 99 100 Intake & Output 07/11/18 07/12/18 07/12/18 18:59 06:59 18:59 Intake Total 482.5 / 482.5 405 / 405 50 / 50 Balance 482.5 / 482.5 405 / 405 50 / 50 Intake: IV 362.5 / 362.5 50 / 50 50 / 50 Zosyn 2.25 GM Premix 50 ML @ 100 / 100 50 / 50 50 / 50 100 mls/hr IV.SIG Q8H [facility] Rx#: [id number] Vancomycin Inj 1,250 MG In NS 262.5 / 262.5 Inj 250 ML @ 250 mls/hr IV.SIG ONCE ONE Rx#:[id number] Oral 120 / 120 355 / 355 - Constitutional no acute distress - Neurological Alert and oriented x3 - Routine Extremities Exam Comments: Right lower extremity was examined. There was noted to be a blue discoloration of the patient's right hallux. There are obvious dry stable gangrenous changes to the distal aspect of the lesser digits. It appears to mostly involve the fifth and third digit. There is no odor. There is pain upon palpating the area. The digits appear slightly cool upon palpation. Pulses are decreased, but they are very audible via Doppler. Left lower extremity is free from any obvious lesions. No crepitus or instability upon range of motion of forefoot, hindfoot and ankle. There is pain upon range of motion of the digits, specifically of the right.- unchanged from initial consult. Medications and Allergies Active Medications: Active Medications Acetaminophen (Tylenol) 650 mg PO Q4H PRN PRN Reason: Temp > 100.4 Acetaminophen (Tylenol) 650 mg PO UNSCH PRN PRN Reason: SEE LABEL COMMENTS Albuterol (Duoneb Neb (Prn)) 1 ampul NEB Q2HR NEB PRN PRN Reason: SHORTNESS OF BREATH/WHEEZING Last Admin: 07/11/18 03:27 Dose: 1 ampul Albuterol (Duoneb Neb (Vel)) 1 ampul NEB Q6HR WHILE AWAKE NEB [facility] Last Admin: 07/12/18 06:42 Dose: 1 ampul Amlodipine Besylate (Norvasc) 10 mg PO DAILY [facility] Last Admin: 07/12/18 09:26 Dose: 10 mg Aspirin (Ecotrin) 81 mg PO DAILY [facility] Last Admin: 07/12/18 09:26 Dose: 81 mg Atorvastatin Calcium (Lipitor) 20 mg PO DAILY [facility] Last Admin: 07/12/18 09:27 Dose: 20 mg Bisacodyl (Dulcolax Supp) 10 mg RECTAL DAILY PRN PRN Reason: SEVERE CONSITIPATION Budesonide/Formoterol Fumarate (Symbicort 160/4.5 Mcg Inh) 2 puff INH BID [facility] Last Admin: 07/12/18 09:28 Dose: 2 puff Carvedilol (Coreg) 25 mg PO BID [facility] Last Admin: 07/12/18 09:27 Dose: 25 mg Clonidine HCl (Catapres) 0.1 mg PO UNSCH PRN PRN Reason: SEE LABEL COMMENTS Diphenhydramine HCl (Benadryl) 25 mg PO UNSCH PRN PRN Reason: SEE LABEL COMMENTS Epoetin Joshua (Epogen Inj) 10,000 unit IV.PUSH UNSCH PRN PRN Reason: SEE LABEL COMMENTS Last Admin: 07/10/18 10:54 Dose: 10,000 unit Gabapentin (Neurontin) 300 mg PO DAILY [facility] Last Admin: 07/12/18 09:26 Dose: 300 mg Gelatin (Gelfoam 12 Mm/7 Mm Topical) 1 foam TOPICAL PRN PRN PRN Reason: help stop bleeding from site Gentamicin Sulfate (Gentamicin Inj) 20 mg OTHER WITH DIALYSIS PRN PRN Reason: Dwell Gentamycin Lock Last Admin: 07/10/18 10:55 Dose: 20 mg Heparin Sodium (Porcine) (Heparin Inj) 8,000 units OTHER WITH DIALYSIS PRN PRN Reason: for machine prime Heparin Sodium (Porcine) (Heparin Inj) 1,000 units OTHER WITH DIALYSIS PRN PRN Reason: Dwell Heparin to Fill Catheter Last Admin: 07/10/18 10:55 Dose: 1,000 units Pharmacy Profile Note (Vancomycin Consult Pharmacy) 0 mls @ 0 mls/hr OTHER UNSCH [facility] Piperacillin/Tazobactam/Dextrose (Zosyn 2.25 Gm Premix) 50 mls @ 100 mls/hr IV.SIG Q8H [facility] Last Infusion: 07/12/18 09:59 Dose: Infused Albumin Human (Flexbumin 25% Inj) 100 mls @ 60 mls/hr IV.SIG WITH DIALYSIS PRN PRN Reason: hypotension / volume replace Sodium Chloride (Ns Inj) 1,000 mls @ 0 mls/hr OTHER .Q0M PRN PRN Reason: for prime and rinse back Sodium Chloride (Ns Inj) 1,000 mls @ 0 mls/hr IV.CONT .Q0M PRN PRN Reason: hypotension / volume replace Sodium Chloride (Ns Inj) 1,000 mls @ 200 mls/hr OTHER .Q5H PRN PRN Reason: for dialyzer flush PRN Lactulose (Lactulose Liq) 30 ml PO DAILY PRN PRN Reason: SEVERE CONSITIPATION Loratadine (Claritin) 20 mg PO DAILY [facility] Last Admin: 07/12/18 09:27 Dose: 20 mg Mannitol (Mannitol Inj) 12.5 gm IV.PUSH UNSCH PRN PRN Reason: hypotension / volume replace Nicotine (Habitrol 21 Mg Patch.24 Hr) 1 patch T-DERMAL DAILY [facility] Nitroglycerin (Nitrostat Sl) 0.4 mg SL Q5M PRN PRN Reason: CHEST PAIN Nitroglycerin (Nitro-Bid 2% Oint) 1 inch TOPICAL Q8H PRN PRN Reason: ISCHEMIA Last Admin: 07/11/18 22:24 Dose: 1 inch Ondansetron HCl (Zofran Inj) 4 mg IV.PUSH UNSCH PRN PRN Reason: NAUSEA OR VOMITING Oxycodone/Acetaminophen (Percocet 5/325 Mg) 1 tab PO Q4HR PRN PRN Reason: PAIN SCALE 6 TO 10 Last Admin: 07/12/18 06:45 Dose: 1 tab Pantoprazole Sodium (Protonix) 20 mg PO DAILY [facility] Last Admin: 07/12/18 09:26 Dose: 20 mg Patch Removal (Remove Old Patch) 0 each T-DERMAL DAILY ONE Stop: 07/13/18 09:01 Senna/Docusate Sodium (Flor-Colace) 1 tab PO BID [facility] Last Admin: 07/12/18 09:26 Dose: 1 tab Sennosides (Senokot) 17.2 mg PO Q12H PRN PRN Reason: Moderate Constipation Sodium Chloride (Ns Flush) 2 ml IV.FLUSH PRN PRN PRN Reason: FLUSH AFTER USING IV ACCESS Sodium Chloride (Ns Flush) 5 ml IV.FLUSH PRN PRN PRN Reason: flush each lumen during HD Allergies Allergy/AdvReac Type Severity Reaction Status Date / Time No Known Allergies Allergy Unverified 07/09/18 15:29 Home Medications Medication Instructions Recorded Confirmed Type albuterol sulfate 1 puff INHALATION Q4-6H PRN 07/09/18 07/09/18 History amlodipine 10 mg PO DAILY 07/09/18 07/09/18 History aspirin 81 mg PO DAILY 07/09/18 07/09/18 History atorvastatin [Lipitor] 20 mg PO DAILY 07/09/18 07/09/18 History budesonide-formoterol [Symbicort] 2 puff INHALATION BID 07/09/18 07/09/18 History carvedilol [Coreg] 25 mg PO BID 07/09/18 07/09/18 History gabapentin 300 mg PO DAILY 07/09/18 07/09/18 History loratadine [Claritin] 20 mg PO DAILY 07/09/18 07/09/18 History omeprazole 20 mg PO DAILY 07/09/18 07/09/18 History oxycodone-acetaminophen [Percocet] 1 tab PO Q4HR PRN 07/09/18 07/09/18 History sennosides-docusate sodium [Senna 1 tab PO BID 07/09/18 07/09/18 History Plus] Results - Labs CBC & Chem 7: 07/10/18 18:24 07/10/18 05:59 Microbiology 07/09/18 18:19 Blood - Peripheral Aerobic Blood Culture - Preliminary No growth in 3 days 08/09/18 18:19 Blood - Peripheral Anaerobic Blood Culture - Preliminary No growth in 3 days 07/09/18 18:19 Blood - Peripheral Aerobic Blood Culture - Preliminary No growth in 3 days 07/09/18 18:19 Blood - Peripheral Anaerobic Blood Culture - Preliminary No growth in 3 days Assessment and Plan - Assessment (1) Gangrene of right foot Code(s): I96 - Gangrene, not elsewhere classified Status: Acute (2) Gangrene of toe of right foot Code(s): I96 - Gangrene, not elsewhere classified Status: Acute - Plan Foot remains stable. no obvious deterioration. Awaiting discussion Friday to transfer patient to treating vascular surgeon in [facility] for definitive care. Continue nitro paste, woundcare per nursing. Will follow patient in 3-5 days; if needed sooner please contact us. Will sing out to Dr Chung.
[2018-07-12 14:06] LABS: Carbon Dioxide 27.7 meq/L (21.0-32.0); Potassium 4.7 meq/L (3.5-5.1)
[2018-07-12 14:32] LABS: Total Protein 5.1 g/dL (6.4-8.2)
[2018-07-13] MEDS: Piperacil/Tazo 2.25 GM Premix 50 ML IV.SIG SCH ×2 (01:14→12:55)
[2018-07-13 06:58] LABS: Baso % (Auto) 0.2 % (0.0-2.0); Eos % (Auto) 0.5 % (0.0-4.0); Hemoglobin 8.1 gm/dL (13.0-17.0); Lymph # (Auto) 0.5 th/mm3 (1.0-4.8); Lymph % (Auto) 9.7 % (9.0-44.0); Mean Corpuscular HGB Conc 32.6 % (32.0-36.0); Mean Corpuscular Hemoglobin 30.4 pg (27.0-34.0); Mean Corpuscular Volume 93.1 fL (80.0-100.0); Mean Platelet Volume 9.5 fL (7.0-11.0); Mono # (Auto) 0.4 th/mm3 (0.0-0.9); Mono % (Auto) 7.7 % (0.0-8.0); Neut # (Auto) 4.6 th/mm3 (1.8-7.7); Neut % (Auto) 81.9 % (16.0-70.0); Platelet Count 56 th/mm3 (150-450); Red Blood Count 2.68 mil/mm3 (4.50-5.90); Red Cell Distribution Width 18.6 % (11.6-17.2); White Blood Count 5.6 th/mm3 (4.0-11.0)
[2018-07-13 07:57] LABS: Platelet Morphology Normal (Normal)
[2018-07-13] MEDS: Heparin 10,000 UNITS/10 ML Vial (for IV use) OTHER PRN (11:13)
--- NOTE | 2018-07-13 11:38 | P.PNIM ---
Subjective Interval history: in no acute distress. having his HD. no new complaints. afebrile. Physical Exam Vital signs: Vital Signs 07/12/18 12:00 07/12/18 12:56 07/12/18 16:00 Temperature 97.7 F 97.5 F L Pulse Rate 62 58 L 66 Respiratory Rate 18 12 18 Blood Pressure 105/55 L 128/63 Pulse Oximetry 98 99 99 07/12/18 20:00 07/12/18 20:25 07/12/18 21:41 Temperature 98.0 F Pulse Rate 59 L 60 Respiratory Rate 20 18 7 L Blood Pressure 118/58 L Pulse Oximetry 100 99 07/13/18 00:00 07/13/18 01:05 07/13/18 04:00 Temperature 98.0 F 98.0 F Pulse Rate 59 L 59 L 61 Respiratory Rate 20 16 20 Blood Pressure 123/58 L 142/67 H Pulse Oximetry 95 95 07/13/18 07:35 07/13/18 08:00 07/13/18 08:04 Temperature 97.2 F L Pulse Rate 94 H 61 61 Respiratory Rate 20 19 Blood Pressure 126/59 L Pulse Oximetry 97 95 Intake & Output 07/12/18 07/13/18 07/13/18 18:59 06:59 18:59 Intake Total 580 / 580 290 / 290 Balance 580 / 580 290 / 290 Weight 68.9 kg Intake: IV 100 / 100 50 / 50 Zosyn 2.25 GM Premix 50 ML @ 100 / 100 50 / 50 100 mls/hr IV.SIG Q8H [facility] Rx#: [id number] Oral 480 / 480 240 / 240 - Constitutional no acute distress - Routine Respiratory Exam Present: CTA bilaterally - Routine Cardiovascular Exam Present: RRR - Routine Abdominal Exam Present: soft - Routine Extremities Exam Comments: blackish discoloration of the right toes. - Routine Neurological Exam Present: alert, oriented X3 Results - Labs CBC & Chem 7: 07/13/18 05:40 07/12/18 13:06 Laboratory Results - last 24 hr 07/12/18 07/13/18 07/13/18 13:06 05:40 05:40 WBC 5.6 RBC 2.68 L Hgb 8.1 L Hct 25.0 L MCV 93.1 MCH 30.4 MCHC 32.6 RDW 18.6 H Plt Count 56 L MPV 9.5 Prelim Diff (Auto) Slide review pending Neut % (Auto) 81.9 H Lymph % (Auto) 9.7 Phillips % (Auto) 7.7 Eos % (Auto) 0.5 Baso % (Auto) 0.2 Neut # (Auto) 4.6 Lymph # (Auto) 0.5 L Phillips # (Auto) 0.4 Eos # (Auto) 0.0 Baso # (Auto) 0.0 WBC Differential . Diff Scan Auto diff confirmed Differential Comment . Platelet Estimate Low L Platelet Morphology Normal Sodium 135 L Potassium 4.7 Chloride 98 Carbon Dioxide 27.7 Anion Gap 9 BUN 67 H Creatinine 6.62 H Estimated GFR 8 L POC Glucose Random Glucose 151 H Calcium 7.0 L* Prot Corrected Calcium 8.1 L Total Protein 5.1 L Random Vancomycin 21.9 07/13/18 08:13 WBC RBC Hgb Hct MCV MCH MCHC RDW Plt Count MPV Prelim Diff (Auto) Neut % (Auto) Lymph % (Auto) Phillips % (Auto) Eos % (Auto) Baso % (Auto) Neut # (Auto) Lymph # (Auto) Phillips # (Auto) Eos # (Auto) Baso # (Auto) WBC Differential Diff Scan Differential Comment Platelet Estimate Platelet Morphology Sodium Potassium Chloride Carbon Dioxide Anion Gap BUN Creatinine Estimated GFR POC Glucose 117 H Random Glucose Calcium Prot Corrected Calcium Total Protein Random Vancomycin Microbiology 07/09/18 18:19 Blood - Peripheral Aerobic Blood Culture - Preliminary No growth in 4 days 07/09/18 18:19 Blood - Peripheral Anaerobic Blood Culture - Preliminary No growth in 4 days 07/09/18 18:19 Blood - Peripheral Aerobic Blood Culture - Preliminary No growth in 4 days 07/09/18 18:19 Blood - Peripheral Anaerobic Blood Culture - Preliminary No growth in 4 days Assessment and Plan - Assessment (1) Acute alteration in mental status Code(s): R41.82 - Altered mental status, unspecified Status: Acute (2) Acute exacerbation of chronic obstructive pulmonary disease (COPD) Code(s): J44.1 - Chronic obstructive pulmonary disease with (acute) exacerbation Status: Acute (3) Anemia Code(s): D64.9 - Anemia, unspecified Status: Acute (4) Foot pain Code(s): M79.673 - Pain in unspecified foot Status: Acute - Plan 67-year-old male with past medical history significant for coronary artery disease status post stenting, CABG, COPD with chronic oxygen use, stage IV chronic kidney disease on hemodialysis Friday, Friday, Friday, neuropathy, peripheral vascular disease, abdominal aneurysm s/p repair and stenting on . Discharge to rehabilitation center, developed altered mental status and increased right foot pain. //AAA s/p repair and stenting -BP control, seen by Vascular //Chronic foot ischemia with dry gangrenous toes- all toes right foot Right foot pain- - ischemic changes sounds chronic by history -Cellulitis versus ischemia -Right lower extremity Doppler ultrasound negative -As needed Percocet for pain, continue gabapentin. Nitroglycerin patch to foot = 07/11. seen by Vascular/Podiatry - Appreciate assistance. Recommends transfer back to where bypass was done //Altered mental status- Improved -CT of the head negative for acute abnormality -Blood gas with low PO2 at 57 and low O2 saturation, possibly contributing, could also be related to underlying infection/pneumonia - //Healthcare acquired pneumonia/COPD exacerbation -Chest x-ray with stable right basilar pleuralparenchymal densities, T-max in ED 102- T down -Blood cultures 2 obtained -Given IV vancomycin and Zosyn in ED -Continue IV antibiotics, consulted pharmacy for vancomycin dosing -Antipyretics as needed -Scheduled duo nebs, Solu-Medrol discontinued. -Continue home Symbicort = Continues on antibiotics. Respiratory status improved. //End-stage renal disease -On HD M/W/F ++ edema on exam, AVF left arm is not mature, using a Perm Cath for HD. He has outpatient arrangements for HD in [place] //Anemia, thrombocytopenia Pancytopenia -Last platelet and PRBC transfusionon -Continue monitoring labs DVT prophylaxis-SCDs, hold off on chemical prophylaxis due to thrombocytopenia Discharge Planning: Per patient- had Vascular procedure done about 1 1/2 months ago at [facility]- Vascular surgeon is Dr. Flores ischemic ahnges of the foot were there even before bypass procedure- Since procedure- toes are ischemic chronically and there was a plan of possibly doing an eventual amputation of the forefoot the son was told to bring in phone number of Dr. Flores for us to call on Friday He needs to be transferred back there for further management and be reevaluated by the VAscular surgeon there Podiatry and Vascular surgery are in agreement that he should go back to [facility]- - original surgeons to manage this Discharge Planning: dc to SNF today after case has been d/w ( left a message with his office today). see med list. f/u; pcp,vascular surgery and nephrology. d/w the patient and his daughter. time spent 35 min. (3) Anemia Qualifiers: Anemia type: unspecified type Qualified Code(s): D64.9 - Anemia, unspecified (4) Foot pain Qualifiers: Laterality: right Qualified Code(s): M79.671 - Pain in right foot
--- NOTE | 2018-07-13 12:17 | P.PNNP ---
Subjective Interval history: Seen during dialysis. Still wheezing on exam. <Renee Norton - Last Filed: 07/13/18 12:14> Physical Exam Vital signs: Vital Signs 07/12/18 12:56 07/12/18 16:00 07/12/18 20:00 Temperature 97.5 F L 98.0 F Pulse Rate 58 L 66 59 L Respiratory Rate 12 18 20 Blood Pressure 128/63 118/58 L Pulse Oximetry 99 99 100 07/12/18 20:25 07/12/18 21:41 07/13/18 00:00 Temperature 98.0 F Pulse Rate 60 59 L Respiratory Rate 18 7 L 20 Blood Pressure 123/58 L Pulse Oximetry 99 95 07/13/18 01:05 07/13/18 04:00 07/13/18 07:35 Temperature 98.0 F 97.2 F L Pulse Rate 59 L 61 94 H Respiratory Rate 16 20 20 Blood Pressure 142/67 H 126/59 L Pulse Oximetry 95 97 07/13/18 08:00 07/13/18 08:04 Temperature Pulse Rate 61 61 Respiratory Rate 19 Blood Pressure Pulse Oximetry 95 Intake & Output 07/12/18 07/13/18 07/13/18 18:59 06:59 18:59 Intake Total 580 / 580 290 / 290 Output Total 4500 / 4500 Balance 580 / 580 290 / 290 -4500 / -4500 Weight 68.9 kg Intake: IV 100 / 100 50 / 50 Zosyn 2.25 GM Premix 50 ML @ 100 / 100 50 / 50 100 mls/hr IV.SIG Q8H [facility] Rx#: [id number] Oral 480 / 480 240 / 240 Output: Hemodialysis Amount 4500 / 4500 - Constitutional chronically ill appearing, disheveled, cooperative - Routine HEENT Exam Head: Present: normocephalic - Routine Neck Exam Present: supple, full ROM - Routine Respiratory Exam Present: prolonged expiratory phase, rhonchi, wheezes. Absent: accessory muscle use - Routine Cardiovascular Exam Present: RRR, S1, S2 - Routine Abdominal Exam Present: soft - Routine Extremities Exam Present: edema, full ROM, AV fistula, vascular access - Routine Skin Exam Present: intact, dry, warm - Routine Neurological Exam Present: alert, oriented X3, CN II-XII intact, moving all extremities - Detailed Neurological Exam: Coma Scale Eye Opening: Spontaneous Verbal Response: Oriented Motor Response: Obey commands [place] Coma Scale Total: 15 - Routine Psychiatric Exam Present: normal affect, normal thought process <Renee Norton - Last Filed: 07/13/18 12:14> Assessment and Plan - Assessment (1) ESRD (end stage renal disease) on dialysis Code(s): N18.6 - End stage renal disease; Z99.2 - Dependence on renal dialysis Status: Acute Plan: Dialysis MWF. Seen during dialysi today on a 23K, 350 BFR, goal 4.5-5L as tolerated. He needs fluid removal. Monitor electrolytes intermittently Avoid IVF administration AVF left arm is not mature, using a Perm Cath for HD. He has outpatient arrangements for HD in [place] (2) Acute exacerbation of chronic obstructive pulmonary disease (COPD) Code(s): J44.1 - Chronic obstructive pulmonary disease with (acute) exacerbation Status: Acute Plan: On Zosyn. Ordered continuous oxygen, nebulizers, pulmonary toilet/IS, supportive care. Monitor clinically (3) Acute alteration in mental status Code(s): R41.82 - Altered mental status, unspecified Status: Acute Plan: May be due to hypoxia or infection. Resolved. (4) Anemia Code(s): D64.9 - Anemia, unspecified Status: Acute Qualifiers: Anemia type: unspecified type Qualified Code(s): D64.9 - Anemia, unspecified Plan: Epogen with dialysis as ordered (5) Foot pain Code(s): M79.673 - Pain in unspecified foot Status: Acute Qualifiers: Laterality: right Qualified Code(s): M79.671 - Pain in right foot Plan: Vascular surgery has been consulted. No plans for surgery. <Renee Norton - Last Filed: 07/13/18 12:14> - Assessment (1) ESRD (end stage renal disease) on dialysis Code(s): N18.6 - End stage renal disease; Z99.2 - Dependence on renal dialysis Status: Acute (2) Acute exacerbation of chronic obstructive pulmonary disease (COPD) Code(s): J44.1 - Chronic obstructive pulmonary disease with (acute) exacerbation Status: Acute (3) Acute alteration in mental status Code(s): R41.82 - Altered mental status, unspecified Status: Acute (4) Anemia Code(s): D64.9 - Anemia, unspecified Status: Acute Qualifiers: Anemia type: unspecified type Qualified Code(s): D64.9 - Anemia, unspecified (5) Foot pain Code(s): M79.673 - Pain in unspecified foot Status: Acute Qualifiers: Laterality: right Qualified Code(s): M79.671 - Pain in right foot - Attending Attestation patient was seen and examined. Agree with above assessment and plan. <Mahendra Raines - Last Filed: 07/15/18 09:00>
[2018-07-13 12:53] VITALS: BP 139/63; PULSE 69; RESP 16; TEMP 97.6; O2SAT 97
[2018-07-13] MEDS: Senna/Docusate Sodium 8.6/50 MG Tablet PO SCH (12:55)
[2018-07-13] MEDS: Pantoprazole Sodium 20 MG DR Tablet PO SCH (12:55)
[2018-07-13] MEDS: amLODIPine 10 MG Tablet PO SCH (12:56)
[2018-07-13] MEDS: Gabapentin 300 MG Capsule PO SCH (12:56)
[2018-07-13] MEDS: Carvedilol 12.5 MG Tablet PO SCH (12:57)
[2018-07-13] MEDS: Loratadine 10 MG Tablet PO SCH (13:01)
[2018-07-13] MEDS: Budesonide-Formoterol 160/4.5 MCG 6 GM Inhaler INH SCH (13:02)
--- NOTE | 2018-07-13 13:25 | P.PNADD ---
Addendum to Inpatient Note Reason for Addendum: Additional Documentation (case was d/w ( his vascular surgery); the patient will have a f/u with him next week- this was d/w the rehab as well. patient will be discharged to SNF.)
[2018-07-14 17:02] LABS: Vitamin D 1,25-Dihydroxy 31 pg/mL (18-64)
--- NOTE | 2018-08-05 12:19 | P.DS ---
Date of admission: 07/09/18 18:34 Primary care physician: [facility] Brief History from admission: 67-year-old male with past medical history significant for coronary artery disease status post stenting, CABG, COPD with chronic oxygen use, stage IV chronic kidney disease on hemodialysis Friday, Friday, Friday, neuropathy, peripheral vascular disease, abdominal aneurysm s/p repair and stenting on . The majority of the history is gathered from partial medical records as well as son who is at bedside. He reports that patient was doing well following surgery however developed right foot pain for which he followed up with vascular surgeons in [facility]. Patient apparently was supposed to be on some form of compressive stockings which were not continued while he was discharged in rehab. Son reports that patient had been in [facility] and rehab however today developed altered mental status along with increasing right foot pain and was sent to the ER. Patient is seen and examined, lethargic but arousable to touch. Nurse reports temperature of 102, administering rectal Tylenol. CBC revealed anemia with hemoglobin of 8.7, thrombocytopenia with platelets of 53. Blood gas done in the ER on 3 L with pH 7.39, CO2 43, PO2 57, oxygen saturation 88%. BMP with elevated creatinine, consistent with chronic kidney disease. Ultrasound of right lower extremity was negative for DVT. Chest x-ray completed revealed stable right basilar pleuralparenchymal densities. Foot x-ray with no fracture or subluxation, soft tissue swelling, enthesophyte and suspected tendinosis of distal Achilles, small heel spur, OS peroneum, mild OA of the first metatarsal joint and sesamiods. DS: Diagnosis - Discharge Diagnosis (1) Acute alteration in mental status Status: Acute (2) Acute exacerbation of chronic obstructive pulmonary disease (COPD) Status: Acute (3) Anemia Status: Acute (4) Foot pain Status: Acute DS: Medications - Discharge Medications Prescriptions: oxycodone-acetaminophen [Percocet] 1 tab PO Q4HR PRN #8 tab PRN Reason: Pain levofloxacin [Levaquin] 250 mg PO DIRECTED #5 tab DS: Summary Hospital Course: //AAA s/p repair and stenting -BP control, seen by Vascular //Chronic foot ischemia with dry gangrenous toes- all toes right foot Right foot pain- - ischemic changes sounds chronic by history -Cellulitis versus ischemia -Right lower extremity Doppler ultrasound negative -As needed Percocet for pain, continue gabapentin. Nitroglycerin patch to foot = 07/11. seen by Vascular/Podiatry - Appreciate assistance. Recommends transfer back to where bypass was done //Altered mental status- Improved -CT of the head negative for acute abnormality -Blood gas with low PO2 at 57 and low O2 saturation, possibly contributing, could also be related to underlying infection/pneumonia - //Healthcare acquired pneumonia/COPD exacerbation -Chest x-ray with stable right basilar pleuralparenchymal densities, T-max in ED 102- T down -Blood cultures 2 obtained -Given IV vancomycin and Zosyn in ED -Continue IV antibiotics, consulted pharmacy for vancomycin dosing -Antipyretics as needed -Scheduled duo nebs, Solu-Medrol discontinued. -Continue home Symbicort = Continues on antibiotics. Respiratory status improved. //End-stage renal disease -On HD M/W/F ++ edema on exam, AVF left arm is not mature, using a Perm Cath for HD. He has outpatient arrangements for HD in [place] [facility] //Anemia, thrombocytopenia Pancytopenia -Last platelet and PRBC transfusionon -Continue monitoring labs DVT prophylaxis-SCDs, hold off on chemical prophylaxis due to thrombocytopenia - Time Spent with Patient Total time spent providing and/or coordinating discharge services: Greater than 30 minutes - Quality: VTE Deep Vein Thrombosis/Pulmonary Embolism Present on Admission: No Results Procedures completed during hospitalization: none. - Impressions ITS Impressions Foot X-Ray 07/09/18 14:13 CONCLUSION: 1. No fracture or subluxation demonstrated. 2. Nonspecific soft tissue swelling. 3. Enthesophyte and suspected tendinosis of distal Achilles. 4. Small heel spur. 5. Os peroneum. 6. 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 Venous Doppler Study 07/09/18 14:14 CONCLUSION: 1. No deep venous thrombosis in the right leg Head CT 07/09/18 14:49 CONCLUSION: No acute intracranial abnormality. . Chest X-Ray 07/09/18 14:50 CONCLUSION: Stable right basilar pleural-parenchymal density. Discharge Plan - Discharge Disposition Patient Disposition: 03 Discharge to SNF - Discharge Condition Condition: Fair - Discharge Order Discharge Orders: Discharge Order (Routine); Ordered 07/13/18 Ordered By: Rigoberto Yang - Physicians Team Primary Care Provider: [facility] [place] Attending Provider: Rigoberto Yang Other Providers: Mahendra Raines MD ; Rah Yung MD ; Tien Alexander DPM
== END 2018-07-13 14:47 ==
LOC: EDSEX → NEPE 13:46 → NEDA 18:34 → NEDH 22:34 → N04 07-10 17:01
PROVIDERS: ADMIT Internal Medicine; ATTEND Internal Medicine

== ENCOUNTER 2018-09-15 07:53 | Observation (INO) ==
[2018-09-15] MEDS ORDERED: Protamine Sulfate Inj 50 MG/5 ML Vial ONE (08:23)
[2018-09-15] MEDS ORDERED: Bupivacaine PF 0.5% Inj 10 ML Vial ONE (08:23)
[2018-09-15] MEDS ORDERED: Heparin 10,000 UNITS/10 ML Vial (for IV use) ONE (08:23)
[2018-09-15] MEDS ORDERED: Heparin/NS PF Inj 500 ML ONE (08:23)
[2018-09-15] MEDS ORDERED: Chlorhexidine Gluconate 2% 1 Pack (2 Cloths) TOPICAL ONE (09:00)
[2018-09-15] MEDS ORDERED: Metoprolol Tartrate 25 MG Tablet PO ONE (09:00)
[2018-09-15] MEDS ORDERED: Sodium Chlor 0.9% Inj 500 ML IV.CONT ONE ×2 (09:00→09:52)
--- NOTE | 2018-09-15 09:16 | P.HPVS ---
History of Present Illness Chief Complaint: ESRD, nonmaturing L UE AVF History of Present Illness: 67 yo male with ESRD on HD MWF; Had L UE BC moths ago that has failed to mature. Proximal stenosis and hematoma without skin threat. To OR for revision. - Inpatient Certification If this patient has been admitted as an Inpatient: I certify that the inpatient services were ordered in accordance with Medicare regulations governing the order. This includes certification that hospital inpatient services are reasonable and necessary and in the case of services not specified as inpatient-only under 42 CFR 419.22(n), that they are appropriately provided as inpatient services in accordance to with the 2-midnight benchmark under 43 CFR 412.3(e) Estimated Total Length of Stay (Days): 0 Plans for Post Hospital Care: Home Review of Systems Constitutional: Denies fever(s) PMFSH - History History Provided By: Patient, Medical Record (Abdominal aneurysm, coronary artery disease, COPD, high cholesterol, hypertension, renal failure, [place], peripheral vascular disease, coronary artery stent, tobacco use, surgical note with recent endovascular graft repair of aneurysm) - Medical History Medical History: Medical History (Last Reviewed 09/15/18 @ 09:14 by Rodrick Reid MD) CKD (chronic kidney disease) requiring chronic dialysis COPD (chronic obstructive pulmonary disease) Dialysis patient HTN (hypertension) Myocardial infarct Oxygen dependent - Surgical History Surgical History: Surgical History (Last Reviewed 09/15/18 @ 09:14 by Rodrick Reid MD) H/O heart artery stent Hx of CABG S/P AAA repair Stented coronary artery - Tobacco History Second Hand Smoke Exposure: No Smoking Status: Unknown if ever smoked Tobacco Type: Cigarettes - Alcohol History How Often Do You Have a Drink Containing Alcohol: Unable to Obtain - Substance Use History Substance History: No History of Abuse Medications and Allergies Active Medications: Active Medications Lactated Ringer's (Lr 1000 Ml Inj) 1,000 mls @ 30 mls/hr IV.CONT .Q24H ONE Stop: 09/16/18 08:59 Sodium Chloride (Ns Inj) 500 mls @ 30 mls/hr IV.CONT .[id number] ONE Stop: 09/16/18 01:39 Allergies Allergy/AdvReac Type Severity Reaction Status Date / Time topiramate [From Topamax] Allergy Unknown unknown Verified 08/31/18 11:31 Home Medications Medication Instructions Recorded Confirmed Type albuterol sulfate 1 puff INHALATION Q4-6H PRN 07/09/18 09/15/18 History amlodipine 10 mg PO DAILY 07/09/18 09/15/18 History aspirin 81 mg PO DAILY 07/09/18 09/15/18 History atorvastatin [Lipitor] 20 mg PO DAILY 07/09/18 09/15/18 History budesonide-formoterol [Symbicort] 2 puff INHALATION BID 07/09/18 09/15/18 History carvedilol [Coreg] 25 mg PO BID 07/09/18 09/15/18 History gabapentin 300 mg PO DAILY 07/09/18 09/15/18 History loratadine [Claritin] 20 mg PO DAILY 07/09/18 09/15/18 History omeprazole 20 mg PO DAILY 07/09/18 09/15/18 History sennosides-docusate sodium [Senna 1 tab PO BID 07/09/18 09/15/18 History Plus] bupropion HCl [Wellbutrin XL] 150 mg PO QAM 08/31/18 09/15/18 History calcium acetate 667 mg PO TID 08/31/18 09/15/18 History guaifenesin 600 mg PO Q12H 08/31/18 09/15/18 History sevelamer carbonate [Renvela] 800 mg PO DAILY 08/31/18 09/15/18 History alprazolam [Xanax] 0.25 mg PO DAILY 09/15/18 09/15/18 History Physical Exam Vital Signs / I&O: Intake & Output 09/14/18 09/15/18 09/15/18 18:59 06:59 18:59 Weight 68 kg Other: Weight On Admission 68 kg Neuro: Neuro intact, no focal deficits HEENT: NC/AT Neck: no JVD Heart: reg rate Lungs: clear, nonlabored Abdomen: soft, NT Vascular: L UE incision healed + thrill + hematoma Caprini VTE Risk Assessment Caprini VTE Risk Assessment: No/Low Risk (score <= 1) (intraop heparin) Caprini Risk Assessment Model: Point Value = 1 Point Value = 2 Point Value = 3 Point Value = 5 Age 41-60 Minor surgery BMI > 25 kg/m2 Swollen legs Varicose veins or History of unexplained or recurrent spontaneous Oral contraceptives or hormone replacement Sepsis (< 1 month) Serious lung disease, including pneumonia (< 1 month) Abnormal pulmonary function Acute myocardial infarction Congestive heart failure (< 1 month) History of inflammatory bowel disease Medical patient at bed rest Age 61-74 Arthroscopic surgery Major open surgery (> 45 min) Laparoscopic surgery (> 45 min) Malignancy Confined to bed (> 72 hours) Immobilizing plaster cast Central venous access Age >= 75 History of VTE Family history of VTE Factor V Leiden Prothrombin [id number] Lupus anticoagulant Anticardiolipin antibodies Elevated serum homocysteine Heparin-induced thrombocytopenia Other congenital or acquired thrombophilia Stroke (< 1 month) Elective arthroplasty Hip, pelvis, or leg fracture Acute spinal cord injury (< 1 month) Prophylaxis Regimen: Total Risk Factor Score Risk Level Prophylaxis Regimen 0-1 Low Early ambulation 2 Moderate Order ONE of the following: *Sequential Compression Device (SCD) *Heparin 5000 units SQ BID 3-4 Higher Order ONE of the following medications: *Heparin 5000 units SQ TID *Enoxaparin/Lovenox 40 mg SQ daily (WT < 150 kg, CrCl > 30 mL/min) *Enoxaparin/Lovenox 30 mg SQ daily (WT < 150 kg, CrCl > 10-29 mL/min) *Enoxaparin/Lovenox 30 mg SQ BID (WT < 150 kg, CrCl > 30 mL/min) AND/OR *Sequential Compression Device (SCD) 5 or more Highest Order ONE of the following medications: *Heparin 5000 units SQ TID (Preferred with Epidurals) *Enoxaparin/Lovenox 40 mg SQ daily (WT < 150 kg, CrCl > 30 mL/min) *Enoxaparin/Lovenox 30 mg SQ daily (WT < 150 kg, CrCl > 10-29 mL/min) *Enoxaparin/Lovenox 30 mg SQ BID (WT < 150 kg, CrCl > 30 mL/min) AND *Sequential Compression Device (SCD) Assessment and Plan - Plan L UE access revision Anticipate d/c today Daughter [phone]
--- NOTE | 2018-09-15 09:16 | XR ---
EXAM DATE: 09/15/2018 12:00 AM EDT AGE/SEX: 67 years / Male INDICATIONS: Evaluate for pneumonia, pneumothorax, or any communicable disease. Pre op left AV fistu la. CLINICAL DATA: This is the patient's initial encounter. Patient reports that signs and symptoms have been present for 1 day and indicates a pain score of 0/10. MEDICAL/SURGICAL HISTORY: . Cardiovascular disease. CABG. Aortic stent placement. COMPARISON: . FINDINGS: Right-sided dialysis catheter is again noted. There has been previous descending thoracic aortic endo graft repair. There is moderate right base consolidation and effusion which appears unchanged. Minima l atelectasis in the left lung base. Visualized cardiac contours are mostly stable. CONCLUSION: No significant change. Persistent or recurrent right base consolidation and effusion. Electronically signed by: Bruce Daniels MD 09/15/2018 9:15 AM EDT
[2018-09-15 09:26] LABS: Baso % (Auto) 0.7 % (0.0-2.0); Eos # (Auto) 0.1 th/mm3 (0.0-0.4); Eos % (Auto) 1.5 % (0.0-4.0); Hematocrit 31.9 % (39.0-51.0); Hemoglobin 9.7 gm/dL (13.0-17.0); Lymph # (Auto) 1.2 th/mm3 (1.0-4.8); Lymph % (Auto) 19.4 % (9.0-44.0); Mean Corpuscular Hemoglobin 29.9 pg (27.0-34.0); Mean Corpuscular Volume 98.6 fL (80.0-100.0); Mean Platelet Volume 7.7 fL (7.0-11.0); Mono # (Auto) 0.7 th/mm3 (0.0-0.9); Neut # (Auto) 4.1 th/mm3 (1.8-7.7); Neut % (Auto) 66.4 % (16.0-70.0); Platelet Count 69 th/mm3 (150-450); Red Blood Count 3.24 mil/mm3 (4.50-5.90); Red Cell Distribution Width 19.6 % (11.6-17.2); White Blood Count 6.1 th/mm3 (4.0-11.0)
[2018-09-15 09:35] LABS: INR 1.2 Ratio; Prothrombin Time 12.5 sec (9.8-11.6)
[2018-09-15 09:37] LABS: Mean Corpuscular HGB Conc 30.3 % (32.0-36.0)
[2018-09-15 09:44] LABS: Calcium 8.2 mg/dL (8.5-10.1); Carbon Dioxide 25.6 meq/L (21.0-32.0); Potassium 4.8 meq/L (3.5-5.1)
[2018-09-15] MEDS ORDERED: Lidocaine PF 1% Inj 5 ML Syringe OTHER ONE (09:52)
[2018-09-15] MEDS ORDERED: Phenylephrine/NS 1000 MCG/10ML Syringe IV.PUSH ONE (09:52)
[2018-09-15 10:10] LABS: Acanthocytes Occ; Ovalocytes 2+
[2018-09-15 10:13] LABS: Platelet Morphology Normal (Normal)
[2018-09-15] MEDS ORDERED: Thrombin Topical 20,000 UNIT Spray Kit TOPICAL ONE (10:58)
--- NOTE | 2018-09-15 12:22 | P.OP ---
- Preoperative Diagnosis (1) ESRD (end stage renal disease) on dialysis (2) Pseudoaneurysm of distal brachial artery - Postoperative Diagnosis (1) ESRD (end stage renal disease) on dialysis (2) Pseudoaneurysm of distal brachial artery Date of procedure: 09/15/18 Procedure: 1. Repair of brachial artery pseudoaneurysm (cephalic vein interposition) 2. Access revision (interposition with Artegraft) Implants: Artegraft Anesthesia: GETA Surgeon: Rodrick Reid MD Bagging Salvager: Enedina Jha Estimated blood loss (mL): 150 IV fluids (mL): 850 Pathology: none sent Operation and Findings: brachial artery pseudoaneurysm, repaired with cephalic vein interposition access repaired with interposition from brachial artery to cephalic vein access
[2018-09-15] MEDS ORDERED: Morphine Sulfate Inj 2 MG/ML Vial IV.PUSH PRN (12:29)
[2018-09-15] MEDS ORDERED: Iohexol 300 MG/ML 50 ML Vial (for Rad Diag) IVCONTRAST ONE ×2 (12:36→13:15)
[2018-09-15] MEDS ORDERED: Heparin - SQ 10,000 UNITS/ML Vial SQ SCH (13:00)
[2018-09-15] MEDS ORDERED: fentaNYL Citrate Inj 100 MCG/2 ML Ampul ONE (13:05)
--- NOTE | 2018-09-15 16:41 | MB ---
cc: Tien Fu DPM DATE: 09/15/2018 REASON FOR CONSULTATION: Right ischemic eschar possible involving a stable gangrene, right foot. HISTORY OF PRESENT ILLNESS: This is a pleasant 67-year-old male who is seen postop revision of arteriovenous fistula per Dr. Rickie Reid; left upper extremity. The patient had an uneventful surgery today. Upon questioning regarding the lower extremities, he has had black painful scabs of his right foot, mainly in the small area on his left foot for many months. This appeared to have happened after a repair of an abdominal aortic aneurysm. The patient walks assisted with a walker. The patient claims he asked many times to have his foot looked at at the [place] and no wound care or followup has been done to date. PAST MEDICAL HISTORY: Abdominal aneurysm, coronary artery disease, COPD, high cholesterol, hypertension, renal failure, history of [place], peripheral vascular disease with now palpable pulses and per Dr. Reid suitable ABIs for healing, history of tobacco use, surgical note with recent endovascular graft repair of aneurysm. The patient is on dialysis, oxygen independent. SURGICAL HISTORY: As previously stated, history of an AAA repair, stented coronary artery, history of CABG, history of heart artery stent. ALLERGIES: TOPIRAMATE. ACTIVE MEDICATIONS/HOME: Please see complete medication list in the chart. The patient reportedly takes 81 Aspirin. INPATIENT MEDICATIONS: 1. Albuterol. 2. Heparin. 3. Dilaudid. 4. Lactated Ringer's. 5. P.r.n. pain medication. PHYSICAL EXAMINATION: VITAL SIGNS: Temperature 98, pulse rate 62, respiratory rate 20, blood pressure 120/58. The patient is sating on 95% on 3 liters nasal cannula. GENERAL: This is alert and oriented male seen at bedside exhibiting nonlabored respirations. EXTREMITIES: The patient is able to move the upper and lower extremities; bilateral lower extremities are examined. Right lower extremity, there appears to be a mixed partial thickness, full thickness eschars mainly involving the distal aspect of digits 1 through 5 without any odor or periwound erythema. There appears to be superficial lifting of the most outer margins of the eschar, which appear to show signs of healing underneath. Pulses are palpable. The foot is warm. There is tenderness upon palpating the digits 1 through 5; however, no crepitus or instability upon range of motion of hindfoot and ankle. Sensation appears to be decreased to light touch. Left lower extremity, there is a small pinpoint area or the dorsal aspect of the hallux that resembles an eschar uncomplicated. No periwound erythema. The left lower extremity appears to be warm. Pulses palpable. No crepitus or instability upon range of motion of digits, forefoot, hindfoot or ankle. LABORATORY FINDINGS: White blood cell 6.1, hemoglobin and hematocrit 931, platelet count 69. Coagulation: PT 12.5, INR 1.2, APTT 32. Chem-7: Sodium 137, potassium 4.8, chloride 101, CO2 25.6, BUN 36, creatinine 6.63. ASSESSMENT AND PLAN: Right foot ischemic eschars stable; appear to be noninfected in right lower extremity digits 1 through 5 and left hallux a small uncomplicated eschar. The plan is for Santyl enzymatic debridement and the patient will followup outpatient, likely for debridement in the office every 7-10 days. The patient appears to have enough vascular flow distally that we will try to prevent any kind of digit amputation or transmetatarsal amputation at this point. However, given the patient's multiple comorbidities, he may eventually need that. He wishes to move forward conservatively regarding only debridement and no surgical amputation at this point. I will write the order for Santyl. The patient will need to followup every 7-10 days upon discharge. If the patient is unable to apply the Santyl ointment himself to his feet, we will prescribe home health care. DEE Jeffrey , 04:20 PM , 04:30 PM
[2018-09-15] MEDS: Collagenase Oint 30 GM Tube TOPICAL SCH (19:03)
--- NOTE | 2018-09-15 19:49 | ECG ---
Date Performed: 09/15/2018 Time Performed: 08:43:18 PTAGE: 67 years EKG: Sinus rhythm WITH OCCASIONAL VENTRICULAR PREMATURE COMPLEXES INFERIOR MYOCARDIAL INFARCTION , PROBABLY OLD WITH P OSTERIOR EXTENSION ANTEROLATERAL MYOCARDIAL INFARCTION , PROBABLY RECENT ACUTE [place] NO PREVIOUS TRACING DOCTOR: Cherri Neil Interpretating Date/Time 09/15/2018 19:48:25
--- NOTE | 2018-09-15 21:29 | MP ---
cc: Rodrick Reid MD DATE OF OPERATION: 09/15/2018 PREOPERATIVE DIAGNOSIS: Left upper extremity failing access. POSTOPERATIVE DIAGNOSIS: Left upper extremity failing access, brachial artery pseudoaneurysm. PROCEDURE PERFORMED: 1. Brachial artery interposition with cephalic vein for pseudoaneurysm. 2. Access revision with interposition Artegraft. ATTENDING SURGEON: Rodrick Reid MD. PACKER INSULATION SURGEON: NOLA Mann INDICATIONS FOR PROCEDURE: Mr. Seo is an elderly gentleman with left upper extremity access and a large hematoma. This is somewhat chronic. He was taken to the operating room for surgical revision. Intraoperatively, it was found the hematoma was actually a thrombosed brachial artery pseudoaneurysm and this had to be repaired and the access revised. DESCRIPTION OF PROCEDURE: Informed consent was obtained from the patient. He was taken to the operating room and placed supine on the operating table. An appropriate timeout was taken to ensure the patient's identity, the operative site and planned procedure. The administration of 1 gram of vancomycin was initiated prior to skin incision and will be discontinued after a single preoperative dose. Vancomycin was chosen because of the patient's end-stage renal disease. Everyone in the room agreed with the timeout and we proceeded. His left arm was prepped and draped and a transverse incision was made in the patient's antecubitum overlying his previous incision, carried down through subcutaneous tissue with electrocautery. Chronic hematoma was identified and dissected free. It clearly encompassed the brachial artery and we dissected back to the proximal brachial artery, which was encircled with a vessel loop. We then tediously dissected distally to the brachial artery and the distal brachial artery distal to the pseudoaneurysm was encircled with a vessel loop. The cephalic vein was felt to have a thrill in it and it coursed over top of this pseudoaneurysm. This was dissected back several centimeters. The patient was then heparinized with 3000 units of IV heparin. Proximal and distal control of the brachial artery were obtained with profunda clamps and a profunda clamp was placed on the outflow cephalic vein. The entire area was completely disassembled and resected taking caution to preserve the median nerve at all times. The cephalic vein was peeled off the pseudoaneurysm and it appeared to be reasonable conduit. The brachial artery was essentially all encompassed by the pseudoaneurysm. The brachial artery was then transected. The edges freshened. The cephalic vein was transected flushed and sewn end-to-end to the proximal brachial artery with 6-0 Prolene suture and end-to-end of the distal brachial artery with 6-0 Prolene suture. At the completion, it was flushed and noted to be hemostatic. In the brachial artery, profunda clamps were removed and there was a nice palpable pulse in the wrist. The brachial artery clamps were reapplied and a longitudinal graftotomy was made with an 11 blade, extended with Bc scissors. The graftotomy was oriented in the middle of the cephalic vein. A 6 mm Artegraft was brought up on the field, spatulated, and sewn end-to-side to the replaced brachial artery with running 6-0 Prolene suture. It was then sewn end-to-end to the cephalic vein with a running 6-0 Prolene suture. At the completion, it was flushed and noted to be hemostatic. The clamps were all released. There was a nice thrill in the fistula, Doppler signal in the wrist. The heparin was reversed with protamine. The wound was infiltrated with Marcaine, irrigated, made hemostatic, and closed with 2-0 Polysorb, 3-0 Polysorb, and 4-0 Monocryl. The sponge and needle counts were correct at the end of the case. I was present, scrubbed, and performed the entire procedure. MD LINA Coulter/pepe , 09:08 PM , 09:16 PM NIRMALA
[2018-09-16 04:19] LABS: Hematocrit 29.6 % (39.0-51.0); Hemoglobin 8.9 gm/dL (13.0-17.0); Mean Corpuscular Hemoglobin 29.8 pg (27.0-34.0); Mean Corpuscular Volume 99.6 fL (80.0-100.0); Mean Platelet Volume 8.4 fL (7.0-11.0); Platelet Count 75 th/mm3 (150-450); Red Blood Count 2.97 mil/mm3 (4.50-5.90); Red Cell Distribution Width 19.4 % (11.6-17.2); White Blood Count 7.7 th/mm3 (4.0-11.0)
[2018-09-16 04:42] LABS: Calcium 7.5 mg/dL (8.5-10.1); Carbon Dioxide 25.1 meq/L (21.0-32.0); Potassium 5.1 meq/L (3.5-5.1)
[2018-09-16 04:51] LABS: Mean Corpuscular HGB Conc 29.9 % (32.0-36.0)
--- NOTE | 2018-09-16 07:45 | P.PNVS ---
Subjective Post Op Day #: 1 Procedure: L brachial artery bypass with cephalic vein, access revision Subjective/Hospital Course: doing well, no complaints. Arm sore but no hand pain ready for HD today Objective Vital Signs / I&O: Vital Signs 09/15/18 09:12 09/15/18 12:50 09/15/18 13:05 Temperature 97.2 F L 97.8 F Pulse Rate 67 67 66 Respiratory Rate 20 20 18 Blood Pressure 157/70 H 130/59 L 118/55 L Pulse Oximetry 96 90 L 94 L 09/15/18 13:30 09/15/18 13:55 09/15/18 14:45 Temperature 98.2 F 98.0 F Pulse Rate 64 60 62 Respiratory Rate 20 20 20 Blood Pressure 138/67 127/61 120/58 L Pulse Oximetry 93 L 95 09/15/18 15:00 09/15/18 15:33 09/15/18 16:00 Temperature 97.3 F L Pulse Rate 60 64 76 Respiratory Rate 20 24 Blood Pressure 126/60 Pulse Oximetry 95 93 L 09/15/18 17:00 09/15/18 18:00 09/15/18 19:00 Temperature Pulse Rate 60 68 66 Respiratory Rate Blood Pressure Pulse Oximetry 09/15/18 19:35 09/15/18 20:00 09/15/18 20:05 Temperature 96.9 F L Pulse Rate 64 Respiratory Rate 18 18 Blood Pressure 171/72 H 140/65 Pulse Oximetry 93 L 09/15/18 20:14 09/15/18 21:00 09/15/18 22:00 Temperature Pulse Rate 68 64 60 Respiratory Rate 18 Blood Pressure Pulse Oximetry 09/15/18 23:00 09/16/18 00:00 09/16/18 01:00 Temperature Pulse Rate 64 67 60 Respiratory Rate Blood Pressure Pulse Oximetry 09/16/18 02:00 09/16/18 02:30 09/16/18 03:00 Temperature Pulse Rate 61 69 Respiratory Rate 16 Blood Pressure Pulse Oximetry 09/16/18 03:10 09/16/18 04:00 09/16/18 05:00 Temperature 97.9 F Pulse Rate 64 66 Respiratory Rate 16 18 Blood Pressure 148/67 H Pulse Oximetry 95 09/16/18 06:00 Temperature Pulse Rate 60 Respiratory Rate Blood Pressure Pulse Oximetry Intake & Output 10/09/16/18 09/16/18 18:59 06:59 18:59 Intake Total 1750 / 1750 240 / 240 Output Total 150 / 150 0 / 0 Balance 1600 / 1600 240 / 240 Weight 68 kg 68 kg Intake: IV 500 / 500 Heparin/NS PF Inj 500 ML @ 0 0 / 0 mls/hr .ROUTE .STK-MED ONE Rx#: [id number] NS Inj 500 ML @ 30 mls/hr IV. 500 / 500 CONT .[id number] ONE Rx#:[id number] Oral 900 / 900 240 / 240 Anesthesia Amount 350 / 350 Output: Urine 0 / 0 Estimated Blood Loss 150 / 150 Other: Date of Last Bowel Movement 09/15/18 09/15/18 Weight On Admission 68 kg Exam: resting in bed, no distress Palpable radial pulse + thrill dressing c/d/i Laboratory Results - last 24 hr 09/15/18 09/15/18 09/15/18 09:00 09:00 09:00 WBC 6.1 RBC 3.24 L Hgb 9.7 L Hct 31.9 L MCV 98.6 MCH 29.9 MCHC 30.3 L RDW 19.6 H Plt Count 69 L MPV 7.7 Prelim Diff (Auto) Slide review pending Neut % (Auto) 66.4 Lymph % (Auto) 19.4 [place] % (Auto) 12.0 H Eos % (Auto) 1.5 Baso % (Auto) 0.7 Neut # (Auto) 4.1 Lymph # (Auto) 1.2 [place] # (Auto) 0.7 Eos # (Auto) 0.1 Baso # (Auto) 0.0 WBC Differential . Diff Scan Auto diff confirmed Differential Comment . Platelet Estimate Low L Platelet Morphology Normal Ovalocytes 2+ H Acanthocytes (Spur) Occ H Keratocytes Occ H PT 12.5 H INR 1.2 APTT 32.0 H Sodium 137 Potassium 4.8 Chloride 101 Carbon Dioxide 25.6 Anion Gap 10 BUN 36 H Creatinine 6.63 H Estimated GFR 8 L Random Glucose 78 Calcium 8.2 L Blood Type Blood Type Recheck Antibody Screen 09/15/18 09/16/18 09/16/18 09:00 04:03 04:03 WBC 7.7 RBC 2.97 L Hgb 8.9 L Hct 29.6 L MCV 99.6 MCH 29.8 MCHC 29.9 L RDW 19.4 H Plt Count 75 L MPV 8.4 Prelim Diff (Auto) Neut % (Auto) Lymph % (Auto) [place] % (Auto) Eos % (Auto) Baso % (Auto) Neut # (Auto) Lymph # (Auto) [place] # (Auto) Eos # (Auto) Baso # (Auto) WBC Differential Diff Scan Differential Comment Platelet Estimate Platelet Morphology Ovalocytes Acanthocytes (Spur) Keratocytes PT INR APTT Sodium 137 Potassium 5.1 Chloride 103 Carbon Dioxide 25.1 Anion Gap 9 BUN 45 H Creatinine 7.49 H Estimated GFR 7 L Random Glucose 94 Calcium 7.5 L Blood Type A Positive Blood Type Recheck Required Antibody Screen Negative Assessment and Plan - Assessment (1) ESRD (end stage renal disease) on dialysis Code(s): N18.6 - End stage renal disease; Z99.2 - Dependence on renal dialysis Status: Acute (2) Pseudoaneurysm of distal brachial artery Code(s): I72.1 - Aneurysm of artery of upper extremity Status: Acute - Plan POD#1 s/p L UE brachial artery pseudoaneurysm repair and AVF revision arm perfused and access patent 1. Podiatry evaluated last night and has a plan moving forward (ABIs 1 in my clinic) 2. HD today; nephrology consulted post-op 3. D/C after HD Discharge Planning: today after HD
--- NOTE | 2018-09-16 07:49 | P.DS ---
Discharge Summary - Admission Date 09/15/18 12:36 - Admission Diagnosis (1) Pseudoaneurysm of distal brachial artery (2) ESRD (end stage renal disease) on dialysis - Discharge Diagnosis (1) Pseudoaneurysm of distal brachial artery Status: Acute (2) ESRD (end stage renal disease) on dialysis Status: Acute - Summary Brief History from admission: 67 yo male with ESRD on HD MWF; Had L UE BC moths ago that has failed to mature. Proximal stenosis and hematoma without skin threat. To OR for revision. Procedure: L brachial artery bypass with cephalic vein, access revision Significant Findings: Abnormal Lab Results 09/15/18 09/15/18 09/15/18 09:00 09:00 09:00 WBC 6.1 RBC 3.24 L Hgb 9.7 L Hct 31.9 L MCV 98.6 MCH 29.9 MCHC 30.3 L RDW 19.6 H Plt Count 69 L MPV 7.7 Prelim Diff (Auto) Slide review pending Neut % (Auto) 66.4 Lymph % (Auto) 19.4 [place] % (Auto) 12.0 H Eos % (Auto) 1.5 Baso % (Auto) 0.7 Neut # (Auto) 4.1 Lymph # (Auto) 1.2 [place] # (Auto) 0.7 Eos # (Auto) 0.1 Baso # (Auto) 0.0 WBC Differential . Diff Scan Auto diff confirmed Differential Comment . Platelet Estimate Low L Platelet Morphology Normal Ovalocytes 2+ H Acanthocytes (Spur) Occ H Keratocytes Occ H PT 12.5 H INR 1.2 APTT 32.0 H Sodium 137 Potassium 4.8 Chloride 101 Carbon Dioxide 25.6 Anion Gap 10 BUN 36 H Creatinine 6.63 H Estimated GFR 8 L Random Glucose 78 Calcium 8.2 L Blood Type Blood Type Recheck Antibody Screen 09/15/18 09/16/18 09/16/18 09:00 04:03 04:03 WBC 7.7 RBC 2.97 L Hgb 8.9 L Hct 29.6 L MCV 99.6 MCH 29.8 MCHC 29.9 L RDW 19.4 H Plt Count 75 L MPV 8.4 Prelim Diff (Auto) Neut % (Auto) Lymph % (Auto) [place] % (Auto) Eos % (Auto) Baso % (Auto) Neut # (Auto) Lymph # (Auto) [place] # (Auto) Eos # (Auto) Baso # (Auto) WBC Differential Diff Scan Differential Comment Platelet Estimate Platelet Morphology Ovalocytes Acanthocytes (Spur) Keratocytes PT INR APTT Sodium 137 Potassium 5.1 Chloride 103 Carbon Dioxide 25.1 Anion Gap 9 BUN 45 H Creatinine 7.49 H Estimated GFR 7 L Random Glucose 94 Calcium 7.5 L Blood Type A Positive Blood Type Recheck Required Antibody Screen Negative Hospital Course: The patient was taken to the OR for access revision. Intraoperatively it was found that he had a distal brachial artery pseudoaneurysm that also involved the proximal AVF. A brachial-brachial bypass was done with cephalic vein and then the proximal AVF was repaired with an interposition using Artegraft. On POD#1 he was doing well, pain was controlled. + Thrill in AVF and palpable radial pulse. Will d/c after HD today. PDMP was queried. He last had a narcotic prescription on 09/08 with a quantity of #12 prescribed then. I wrote for N=10 oxycodone 5mg for acute post- operative pain <3 days. - Discharge Instructions remove incisional dressing on TUESDAY 09/18. Do not soak arm in water until seen in clinic next week, 09/23. Any questions or concerns: Call [facility] Heart and Vascular Surgery at [facility] [phone] Discharge Plan - Discharge Disposition Patient Disposition: Discharge Home - Discharge Condition Condition: Good - Discharge Order Discharge Orders: Discharge Order (Routine); Ordered 09/16/18 Ordered By: Rodrick Reid - Physicians Team Primary Care Provider: [facility]ician 's Attending Provider: Rodrick Reid Other Providers: Mahendra Raines MD ; Tien Alexander DPM - Rxs /Orders / Referrals /Forms Prescriptions: No Action albuterol sulfate 90 mcg/actuation Hfa Aerosol Inhaler 1 puff INHALATION Q4-6H PRN (Reason: Shortness Of Breath) alprazolam [Xanax] 0.25 mg Tablet 0.25 mg PO DAILY amlodipine 10 mg Tablet 10 mg PO DAILY aspirin 81 mg Tablet,Delayed Release (Dr/Ec) 81 mg PO DAILY atorvastatin [Lipitor] 20 mg Tablet 20 mg PO DAILY budesonide-formoterol [Symbicort] 160-4.5 mcg/actuation Hfa Aerosol Inhaler 2 puff INHALATION BID bupropion HCl [Wellbutrin XL] 150 mg Tablet Extended Release 24 Hr 150 mg PO QAM calcium acetate 667 mg Tablet 667 mg PO TID carvedilol [Coreg] 25 mg Tablet 25 mg PO BID gabapentin 300 mg Capsule 300 mg PO DAILY guaifenesin 600 mg Tablet Extended Release 12hr 600 mg PO Q12H loratadine [Claritin] 10 mg Tablet 20 mg PO DAILY omeprazole 20 mg Capsule,Delayed Release(Dr/Ec) 20 mg PO DAILY oxycodone-acetaminophen [Percocet] 5-325 mg Tablet 1 tab PO Q4HR PRN (Reason: Pain) Qty: 8 sennosides-docusate sodium [Senna Plus] 8.6-50 mg Tablet 1 tab PO BID sevelamer carbonate [Renvela] 800 mg Tablet 800 mg PO DAILY Referrals: [facility],Physician 's [Primary Care Provider] - See Instructions
[2018-09-16] MEDS ORDERED: Sod Chloride 0.9% Inj 1,000 ML IV.CONT PRN (10:03)
[2018-09-16] MEDS ORDERED: Gelatin 12 MM/7 MM Topical Foam TOPICAL PRN (10:03)
[2018-09-16] MEDS ORDERED: Acetaminophen 325 MG Tablet PO PRN (10:03)
[2018-09-16] MEDS ORDERED: Albumin Human 25% Inj 100 ML IV.SIG PRN (10:03)
[2018-09-16] MEDS ORDERED: Heparin 10,000 UNITS/10 ML Vial (for IV use) OTHER PRN ×2 (10:03)
[2018-09-16] MEDS ORDERED: Sod Chloride 0.9% Inj 1,000 ML OTHER PRN ×2 (10:03)
--- NOTE | 2018-09-16 10:03 | P.CONNP ---
History of Present Illness Service: Nephrology Reason for Consult: ESRD, need for dialysis. Primary Care Provider: [facility] History of Present Illness: Mr. Seo had revision of left arm AV access, was admitted after the procedure , dialysis was arranged, he was seen during dialysis. He is sleepy, had been given Xanax before dialysis. On 2K, PermCath being used for dialysis, UF goal is 3 liters. Voices no complaints. Review of Systems Cardiovascular: Denies chest pain, Denies chest pain at rest PMFSH - History History Provided By: Patient, Medical Record (Abdominal aneurysm, coronary artery disease, COPD, high cholesterol, hypertension, renal failure, [place], peripheral vascular disease, coronary artery stent, tobacco use, surgical note with recent endovascular graft repair of aneurysm) - Medical History Medical History: Medical History (Last Reviewed 09/15/18 @ 09:14 by Rodrick Reid MD) CKD (chronic kidney disease) requiring chronic dialysis COPD (chronic obstructive pulmonary disease) Dialysis patient HTN (hypertension) Myocardial infarct Oxygen dependent - Surgical History Surgical History: Surgical History (Last Reviewed 09/15/18 @ 09:14 by Rodrick Reid MD) H/O heart artery stent Hx of CABG S/P AAA repair Stented coronary artery - Tobacco History Second Hand Smoke Exposure: No Smoking Status: Unknown if ever smoked Tobacco Type: Cigarettes - Alcohol History How Often Do You Have a Drink Containing Alcohol: Unable to Obtain - Substance Use History Substance History: No History of Abuse - Travel History Recent Travel in the [place] Within the Last 8 Weeks: No Recent Travel Out of the Country Within the Last 8 Weeks: No Medications and Allergies Active Medications: Active Medications Albuterol (Albuterol Neb (Prn)) 2.5 mg NEB Q4HR NEB PRN PRN Reason: SHORTNESS OF BREATH Last Admin: 09/15/18 20:13 Dose: 2.5 mg Alprazolam (Xanax) 1 mg PO UNSCH X1 PRN PRN Reason: SEE LABEL COMMENT Stop: 09/18/18 07:00 Last Admin: 09/16/18 08:26 Dose: 1 mg Collagenase (Santyl Oint) 1 applicatio TOPICAL DAILY MANJU Last Admin: 09/15/18 19:03 Dose: 1 applicatio Heparin Sodium (Porcine) (Heparin Inj) 5,000 units SQ Q8H MANJU Hydromorphone HCl (Dilaudid) 2 mg PO Q4H PRN PRN Reason: PAIN SCALE 6 TO 10 Last Admin: 09/15/18 23:57 Dose: 2 mg Miscellaneous Information ([facility] [facility]) 0 each OTHER UNSCH PRN PRN Reason: SEE LABEL COMMENTS Stop: 09/16/18 12:55 Morphine Sulfate (Morphine Inj) 2 mg IV.PUSH Q1H PRN PRN Reason: BREAKTHROUGH PAIN Last Admin: 09/16/18 02:28 Dose: 2 mg Oxycodone HCl (Roxicodone) 5 mg PO Q4H PRN PRN Reason: PAIN SCALE 1 TO 5 Last Admin: 09/16/18 02:32 Dose: 5 mg Allergies Allergy/AdvReac Type Severity Reaction Status Date / Time topiramate [From Topamax] Allergy Unknown unknown Verified 08/31/18 11:31 Home Medications Medication Instructions Recorded Confirmed Type albuterol sulfate 1 puff INHALATION Q4-6H PRN 07/09/18 09/15/18 History amlodipine 10 mg PO DAILY 07/09/18 09/15/18 History aspirin 81 mg PO DAILY 07/09/18 09/15/18 History atorvastatin [Lipitor] 20 mg PO DAILY 07/09/18 09/15/18 History budesonide-formoterol [Symbicort] 2 puff INHALATION BID 07/09/18 09/15/18 History carvedilol [Coreg] 25 mg PO BID 07/09/18 09/15/18 History gabapentin 300 mg PO DAILY 07/09/18 09/15/18 History loratadine [Claritin] 20 mg PO DAILY 07/09/18 09/15/18 History omeprazole 20 mg PO DAILY 07/09/18 09/15/18 History sennosides-docusate sodium [Senna 1 tab PO BID 07/09/18 09/15/18 History Plus] bupropion HCl [Wellbutrin XL] 150 mg PO QAM 08/31/18 09/15/18 History calcium acetate 667 mg PO TID 08/31/18 09/15/18 History guaifenesin 600 mg PO Q12H 08/31/18 09/15/18 History sevelamer carbonate [Renvela] 800 mg PO DAILY 08/31/18 09/15/18 History alprazolam [Xanax] 0.25 mg PO DAILY 09/15/18 09/15/18 History Exam Vital signs: Vital Signs 09/15/18 12:50 09/15/18 13:05 09/15/18 13:30 Temperature 97.8 F 98.2 F Pulse Rate 67 66 64 Respiratory Rate 20 18 20 Blood Pressure 130/59 L 118/55 L 138/67 Pulse Oximetry 90 L 94 L 93 L 09/15/18 13:55 09/15/18 14:45 09/15/18 15:00 Temperature 98.0 F Pulse Rate 60 62 60 Respiratory Rate 20 20 Blood Pressure 127/61 120/58 L Pulse Oximetry 95 09/15/18 15:33 09/15/18 16:00 09/15/18 17:00 Temperature 97.3 F L Pulse Rate 64 76 60 Respiratory Rate 20 24 Blood Pressure 126/60 Pulse Oximetry 95 93 L 09/15/18 18:00 09/15/18 19:00 09/15/18 19:35 Temperature Pulse Rate 68 66 Respiratory Rate 18 Blood Pressure Pulse Oximetry 09/15/18 20:00 09/15/18 20:05 09/15/18 20:14 Temperature 96.9 F L Pulse Rate 64 68 Respiratory Rate 18 18 Blood Pressure 171/72 H 140/65 Pulse Oximetry 93 L 09/15/18 21:00 09/15/18 22:00 09/15/18 23:00 Temperature Pulse Rate 64 60 64 Respiratory Rate Blood Pressure Pulse Oximetry 09/16/18 00:00 09/16/18 01:00 09/16/18 02:00 Temperature Pulse Rate 67 60 61 Respiratory Rate Blood Pressure Pulse Oximetry 09/16/18 02:30 09/16/18 03:00 09/16/18 03:10 Temperature Pulse Rate 69 Respiratory Rate 16 16 Blood Pressure Pulse Oximetry 09/16/18 04:00 09/16/18 05:00 09/16/18 06:00 Temperature 97.9 F Pulse Rate 64 66 60 Respiratory Rate 18 Blood Pressure 148/67 H Pulse Oximetry 95 09/16/18 07:00 09/16/18 08:00 09/16/18 09:00 Temperature 97.4 F L Pulse Rate 61 67 72 Respiratory Rate 20 Blood Pressure 164/73 H Pulse Oximetry 96 Intake & Output 09/15/18 09/16/18 09/16/18 18:59 06:59 18:59 Intake Total 1750 / 1750 240 / 240 Output Total 150 / 150 0 / 0 Balance 1600 / 1600 240 / 240 Weight 68 kg 68 kg Intake: IV 500 / 500 Heparin/NS PF Inj 500 ML @ 0 0 / 0 mls/hr .ROUTE .STK-MED ONE Rx#: [id number] NS Inj 500 ML @ 30 mls/hr IV. 500 / 500 CONT .[id number] ONE Rx#:[id number] Oral 900 / 900 240 / 240 Anesthesia Amount 350 / 350 Output: Urine 0 / 0 Estimated Blood Loss 150 / 150 Other: Date of Last Bowel Movement 09/15/18 09/15/18 09/15/18 Weight On Admission 68 kg - Constitutional no acute distress, chronically ill appearing, somnolent - Routine HEENT Exam Head: Present: normocephalic, atraumatic Eye: Present: EOMI, PERRL - Routine Neck Exam Absent: JVD - Routine Respiratory Exam Present: CTA bilaterally - Routine Cardiovascular Exam Present: RRR, S1, S2 - Routine Abdominal Exam Present: soft, normoactive bowel sounds - Routine Extremities Exam Absent: edema Comments: patent AVF - Routine Neurological Exam Present: alert sleepy, lethargic. Results - Lab Results 09/16/18 04:03 09/16/18 04:03 Most recent lab results Calcium 7.5 mg/dL (8.5-10.1) L 09/16/18 04:03 Assessment and Plan - Assessment (1) ESRD (end stage renal disease) on dialysis Code(s): N18.6 - End stage renal disease; Z99.2 - Dependence on renal dialysis Status: Acute Plan: Dialysis today. On 2K. Monitor fluid and electrolytes. (2) Anemia Code(s): D64.9 - Anemia, unspecified Status: Acute Plan: Epogen with dialysis. (3) COPD (chronic obstructive pulmonary disease) Code(s): J44.9 - Chronic obstructive pulmonary disease, unspecified Status: Acute Plan: rule out CO2 narcosis. Patient is drowsy. - Attending Attestation Thanks for the consult. (2) Anemia Qualifiers: Anemia type: unspecified type Qualified Code(s): D64.9 - Anemia, unspecified
--- NOTE | 2018-09-16 12:26 | P.PNVS ---
Subjective Subjective/Hospital Course: 67/M with a PMH of COPD/ESRD on HD Pt S/P AVF access revision While in HD had 2 episodes of V-tach Pt asymptomatic Objective Vital Signs / I&O: Vital Signs 09/15/18 12:50 09/15/18 13:05 09/15/18 13:30 Temperature 97.8 F 98.2 F Pulse Rate 67 66 64 Respiratory Rate 20 18 20 Blood Pressure 130/59 L 118/55 L 138/67 Pulse Oximetry 90 L 94 L 93 L 09/15/18 13:55 09/15/18 14:45 09/15/18 15:00 Temperature 98.0 F Pulse Rate 60 62 60 Respiratory Rate 20 20 Blood Pressure 127/61 120/58 L Pulse Oximetry 95 09/15/18 15:33 09/15/18 16:00 09/15/18 17:00 Temperature 97.3 F L Pulse Rate 64 76 60 Respiratory Rate 20 24 Blood Pressure 126/60 Pulse Oximetry 95 93 L 09/15/18 18:00 09/15/18 19:00 09/15/18 19:35 Temperature Pulse Rate 68 66 Respiratory Rate 18 Blood Pressure Pulse Oximetry 09/15/18 20:00 09/15/18 20:05 09/15/18 20:14 Temperature 96.9 F L Pulse Rate 64 68 Respiratory Rate 18 18 Blood Pressure 171/72 H 140/65 Pulse Oximetry 93 L 09/15/18 21:00 09/15/18 22:00 09/15/18 23:00 Temperature Pulse Rate 64 60 64 Respiratory Rate Blood Pressure Pulse Oximetry 09/16/18 00:00 09/16/18 01:00 09/16/18 02:00 Temperature Pulse Rate 67 60 61 Respiratory Rate Blood Pressure Pulse Oximetry 09/16/18 02:30 09/16/18 03:00 09/16/18 03:10 Temperature Pulse Rate 69 Respiratory Rate 16 16 Blood Pressure Pulse Oximetry 09/16/18 04:00 09/16/18 05:00 09/16/18 06:00 Temperature 97.9 F Pulse Rate 64 66 60 Respiratory Rate 18 Blood Pressure 148/67 H Pulse Oximetry 95 09/16/18 07:00 09/16/18 08:00 09/16/18 09:00 Temperature 97.4 F L Pulse Rate 61 67 72 Respiratory Rate 20 Blood Pressure 164/73 H Pulse Oximetry 96 09/16/18 10:00 09/16/18 11:00 09/16/18 11:45 Temperature Pulse Rate 76 87 168 H Respiratory Rate Blood Pressure Pulse Oximetry Intake & Output 09/15/18 09/16/18 09/16/18 18:59 06:59 18:59 Intake Total 1750 / 1750 240 / 240 Output Total 150 / 150 0 / 0 Balance 1600 / 1600 240 / 240 Weight 68 kg 68 kg Intake: IV 500 / 500 Heparin/NS PF Inj 500 ML @ 0 0 / 0 mls/hr .ROUTE .STK-MED ONE Rx#: [id number] NS Inj 500 ML @ 30 mls/hr IV. 500 / 500 CONT .[id number] ONE Rx#:[id number] Oral 900 / 900 240 / 240 Anesthesia Amount 350 / 350 Output: Urine 0 / 0 Estimated Blood Loss 150 / 150 Other: Date of Last Bowel Movement 09/15/18 09/15/18 09/15/18 Weight On Admission 68 kg Laboratory Results - last 24 hr 09/16/18 09/16/18 09/16/18 04:03 04:03 09:23 WBC 7.7 RBC 2.97 L Hgb 8.9 L Hct 29.6 L MCV 99.6 MCH 29.8 MCHC 29.9 L RDW 19.4 H Plt Count 75 L MPV 8.4 Sodium 137 Potassium 5.1 Chloride 103 Carbon Dioxide 25.1 Anion Gap 9 BUN 45 H Creatinine 7.49 H Estimated GFR 7 L POC Glucose 115 H Random Glucose 94 Calcium 7.5 L Impressions Chest X-Ray 09/15/18 00:00 CONCLUSION: No significant change. Persistent or recurrent right base consolidation and effusion. Assessment and Plan - Assessment (1) ESRD (end stage renal disease) on dialysis Code(s): N18.6 - End stage renal disease; Z99.2 - Dependence on renal dialysis Status: Acute (2) Pseudoaneurysm of distal brachial artery Code(s): I72.1 - Aneurysm of artery of upper extremity Status: Acute - Plan POD#1 s/p L UE brachial artery pseudoaneurysm repair and AVF revision arm perfused and access patent Plan Cancel D/C for today Consult Hospitalist for transfer of care and medical management Consult Cardiology- V- tach episodes while in HD Kinga Moreau NP [facility] [phone] ATTENDING NOTE: Clinically looks good, resting in HD. Will check BMP stat and ask medical service to assist. Rodrick Reid MD FACS RPVI on call [facility] - Heart and Vascular Surgery at [facility] [phone] Discharge Plannin-2 days
[2018-09-16 13:51] LABS: Calcium 7.5 mg/dL (8.5-10.1); Carbon Dioxide 30.1 meq/L (21.0-32.0); Potassium 4.5 meq/L (3.5-5.1)
[2018-09-16] MEDS: Heparin - SQ 10,000 UNITS/ML Vial SQ SCH ×2 (16:07→21:31)
[2018-09-16] MEDS: Carvedilol 12.5 MG Tablet PO SCH ×2 (16:07→21:32)
[2018-09-16] MEDS: Collagenase Oint 30 GM Tube TOPICAL SCH (16:07)
--- NOTE | 2018-09-16 16:48 | P.CONCA ---
History of Present Illness Service: Cardiology Consult date: 09/16/18 Requesting Physician: Kinga Moreau Reason for Consult: Ventricular tachycardia Primary Care Provider: [facility] History of Present Illness: This is a 67-year-old male with a history of end-stage renal disease on hemodialysis Wednesdays and Fridays, abdominal aneurysm, coronary artery disease, COPD, hypertension, myocardial infarction, peripheral vascular disease, high cholesterol, tobacco use and non-maturing left upper extremity AV fistula. He was taken to the OR for revision of the AV fistula. He was receiving dialysis today at which time he developed a 8-10 beat run of ventricular tachycardia followed by a 22 beat run of ventricular tachycardia. Per the staff he was asymptomatic during these episodes. He is currently sinus rhythm on the monitor. On evaluation, he is very lethargic due to receiving Xanax prior to dialysis, so information was gathered through chart review. He does not appear to be in any acute distress and vital signs are stable. Review of Systems All other systems reviewed negative except as stated in HPI [facility] - History History Provided By: Patient, Medical Record (Abdominal aneurysm, coronary artery disease, COPD, high cholesterol, hypertension, renal failure, [place], peripheral vascular disease, coronary artery stent, tobacco use, surgical note with recent endovascular graft repair of aneurysm) - Medical History Medical History: Medical History (Last Reviewed 09/15/18 @ 09:14 by Rodrick Reid MD) CKD (chronic kidney disease) requiring chronic dialysis COPD (chronic obstructive pulmonary disease) Dialysis patient HTN (hypertension) Myocardial infarct Oxygen dependent - Surgical History Surgical History: Surgical History (Last Reviewed 09/15/18 @ 09:14 by Rodrick Reid MD) H/O heart artery stent Hx of CABG S/P AAA repair Stented coronary artery - Tobacco History Second Hand Smoke Exposure: No Smoking Status: Unknown if ever smoked Tobacco Type: Cigarettes - Alcohol History How Often Do You Have a Drink Containing Alcohol: Unable to Obtain - Substance Use History Substance History: No History of Abuse - Travel History Recent Travel in the [place] Within the Last 8 Weeks: No Recent Travel Out of the Country Within the Last 8 Weeks: No Medications and Allergies Allergies Allergy/AdvReac Type Severity Reaction Status Date / Time topiramate [From Topamax] Allergy Unknown unknown Verified 08/31/18 11:31 Home Medications Medication Instructions Recorded Confirmed Type albuterol sulfate 1 puff INHALATION Q4-6H PRN 07/09/18 09/15/18 History amlodipine 10 mg PO DAILY 07/09/18 09/15/18 History aspirin 81 mg PO DAILY 07/09/18 09/15/18 History atorvastatin [Lipitor] 20 mg PO DAILY 07/09/18 09/15/18 History budesonide-formoterol [Symbicort] 2 puff INHALATION BID 07/09/18 09/15/18 History carvedilol [Coreg] 25 mg PO BID 07/09/18 09/15/18 History gabapentin 300 mg PO DAILY 07/09/18 09/15/18 History loratadine [Claritin] 20 mg PO DAILY 07/09/18 09/15/18 History omeprazole 20 mg PO DAILY 07/09/18 09/15/18 History sennosides-docusate sodium [Senna 1 tab PO BID 07/09/18 09/15/18 History Plus] bupropion HCl [Wellbutrin XL] 150 mg PO QAM 08/31/18 09/15/18 History calcium acetate 667 mg PO TID 08/31/18 09/15/18 History guaifenesin 600 mg PO Q12H 08/31/18 09/15/18 History sevelamer carbonate [Renvela] 800 mg PO DAILY 08/31/18 09/15/18 History alprazolam [Xanax] 0.25 mg PO DAILY 09/15/18 09/15/18 History Active Medications: Active Medications Acetaminophen (Tylenol) 650 mg PO UNSCH X1 PRN PRN Reason: SEE LABEL COMMENTS Albuterol (Albuterol Neb (Prn)) 2.5 mg NEB Q4HR NEB PRN PRN Reason: SHORTNESS OF BREATH Last Admin: 09/16/18 15:25 Dose: 2.5 mg Alprazolam (Xanax) 1 mg PO UNSCH X1 PRN PRN Reason: SEE LABEL COMMENT Stop: 09/18/18 07:00 Last Admin: 09/16/18 08:26 Dose: 1 mg Carvedilol (Coreg) 25 mg PO BID [facility]JU Last Admin: 09/16/18 16:07 Dose: 25 mg Clonidine HCl (Catapres) 0.1 mg PO UNSCH X1 PRN PRN Reason: SEE LABEL COMMENTS Collagenase (Santyl Oint) 1 applicatio TOPICAL DAILY [facility] Last Admin: 09/16/18 16:07 Dose: 1 applicatio Diphenhydramine HCl (Benadryl) 25 mg PO UNSCH PRN PRN Reason: SEE LABEL COMMENTS Epoetin Joshua (Epogen Inj) 10,000 unit IV.PUSH UNSCH PRN PRN Reason: SEE LABEL COMMENTS Last Admin: 09/16/18 11:05 Dose: 10,000 unit Gelatin (Gelfoam 12 Mm/7 Mm Topical) 1 foam TOPICAL UNSCH PRN PRN Reason: help stop bleeding from site Gentamicin Sulfate (Gentamicin Inj) 20 mg OTHER WITH DIALYSIS PRN PRN Reason: Dwell Gentamycin Lock Last Admin: 09/16/18 11:35 Dose: 20 mg Heparin Sodium (Porcine) (Heparin Inj) 5,000 units SQ Q8H [facility] Last Admin: 09/16/18 16:07 Dose: 5,000 units Heparin Sodium (Porcine) (Heparin Inj) 0 units OTHER WITH DIALYSIS PRN PRN Reason: Dwell Heparin to Fill Catheter Heparin Sodium (Porcine) (Heparin Inj) 8,000 units OTHER WITH DIALYSIS PRN PRN Reason: for machine prime Hydromorphone HCl (Dilaudid) 2 mg PO Q4H PRN PRN Reason: PAIN SCALE 6 TO 10 Last Admin: 09/15/18 23:57 Dose: 2 mg Albumin Human (Flexbumin 25% Inj) 100 mls @ 60 mls/hr IV.SIG WITH DIALYSIS PRN PRN Reason: hypotension / volume replace Sodium Chloride (Ns Inj) 1,000 mls @ 0 mls/hr OTHER .Q0M PRN PRN Reason: for prime and rinse back Sodium Chloride (Ns Inj) 1,000 mls @ 200 mls/hr OTHER .Q5H PRN PRN Reason: for dialyzer flush PRN Sodium Chloride (Ns Inj) 1,000 mls @ 0 mls/hr IV.CONT .Q0M PRN PRN Reason: hypotension / volume replace Mannitol (Mannitol Inj) 12.5 gm IV.PUSH UNSCH PRN PRN Reason: hypotension / volume replace Morphine Sulfate (Morphine Inj) 2 mg IV.PUSH Q1H PRN PRN Reason: BREAKTHROUGH PAIN Last Admin: 09/16/18 02:28 Dose: 2 mg Nitroglycerin (Nitrostat Sl) 0.4 mg SL Q5M PRN PRN Reason: CHEST PAIN Ondansetron HCl (Zofran Inj) 4 mg IV.PUSH UNSCH X1 PRN PRN Reason: WITH DIALYSIS Oxycodone HCl (Roxicodone) 5 mg PO Q4H PRN PRN Reason: PAIN SCALE 1 TO 5 Last Admin: 09/16/18 02:32 Dose: 5 mg Sodium Chloride (Ns Flush) 5 ml IV.FLUSH UNSCH PRN PRN Reason: flush each lumen during HD Exam Vital signs: Vital Signs 09/15/18 17:00 09/15/18 18:00 09/15/18 19:00 Temperature Pulse Rate 60 68 66 Respiratory Rate Blood Pressure Pulse Oximetry 09/15/18 19:35 09/15/18 20:00 09/15/18 20:05 Temperature 96.9 F L Pulse Rate 64 Respiratory Rate 18 18 Blood Pressure 171/72 H 140/65 Pulse Oximetry 93 L 09/15/18 20:14 09/15/18 21:00 09/15/18 22:00 Temperature Pulse Rate 68 64 60 Respiratory Rate 18 Blood Pressure Pulse Oximetry 09/15/18 23:00 09/16/18 00:00 09/16/18 01:00 Temperature Pulse Rate 64 67 60 Respiratory Rate Blood Pressure Pulse Oximetry 09/16/18 02:00 09/16/18 02:30 09/16/18 03:00 Temperature Pulse Rate 61 69 Respiratory Rate 16 Blood Pressure Pulse Oximetry 09/16/18 03:10 09/16/18 04:00 09/16/18 05:00 Temperature 97.9 F Pulse Rate 64 66 Respiratory Rate 16 18 Blood Pressure 148/67 H Pulse Oximetry 95 09/16/18 06:00 09/16/18 07:00 09/16/18 08:00 Temperature 97.4 F L Pulse Rate 60 61 67 Respiratory Rate 20 Blood Pressure 164/73 H Pulse Oximetry 96 09/16/18 09:00 09/16/18 10:00 09/16/18 11:00 Temperature Pulse Rate 72 76 87 Respiratory Rate Blood Pressure Pulse Oximetry 09/16/18 11:45 09/16/18 13:00 09/16/18 15:25 Temperature Pulse Rate 168 H 86 79 Respiratory Rate 24 24 Blood Pressure 173/76 H Pulse Oximetry 98 Intake & Output 09/15/18 09/16/18 09/16/18 18:59 06:59 18:59 Intake Total 1750 / 1750 240 / 240 Output Total 150 / 150 0 / 0 2500 / 2500 Balance 1600 / 1600 240 / 240 -2500 / -2500 Weight 68 kg 68 kg Intake: IV 500 / 500 Heparin/NS PF Inj 500 ML @ 0 0 / 0 mls/hr .ROUTE .STK-MED ONE Rx#: [id number] NS Inj 500 ML @ 30 mls/hr IV. 500 / 500 CONT .[id number] ONE Rx#:[id number] Oral 900 / 900 240 / 240 Anesthesia Amount 350 / 350 Output: Urine 0 / 0 Hemodialysis Amount 2500 / 2500 Estimated Blood Loss 150 / 150 Other: Date of Last Bowel Movement 09/15/18 09/15/18 09/15/18 Weight On Admission 68 kg - Constitutional no acute distress - Routine HEENT Exam Head: Present: normocephalic Eye: Present: PERRL ENT: Present: mucous membranes moist - Routine Neck Exam Present: supple - Routine Respiratory Exam Present: rhonchi Comments: rhonchi throughout, pt refusing breathing treatments. - Routine Cardiovascular Exam Present: S1, S2. Absent: murmur, gallop, rubs - Routine Abdominal Exam Present: normoactive bowel sounds - Routine Extremities Exam Present: cyanosis, edema, AV fistula Comments: necrotic toes noted. - Routine Skin Exam Present: wounds, ecchymosis - Routine Neurological Exam lethargic due to Xanax per dialysis. Results 09/16/18 04:03 09/16/18 13:02 Coagulation 09/15/18 Range/Units 09:00 PT 12.5 H (9.8-11.6) sec APTT 32.0 H (24.3-30.1) sec CBC 09/15/18 09/16/18 Range/Units 09:00 04:03 WBC 6.1 7.7 (4.0-11.0) th/mm3 RBC 3.24 L 2.97 L (4.50-5.90) mil/mm3 Hgb 9.7 L 8.9 L (13.0-17.0) gm/dL Hct 31.9 L 29.6 L (39.0-51.0) % Plt Count 69 L 75 L (150-450) th/mm3 Neut # (Auto) 4.1 (1.8-7.7) th/mm3 Lymph # (Auto) 1.2 (1.0-4.8) th/mm3 [place] # (Auto) 0.7 (0.0-0.9) th/mm3 Eos # (Auto) 0.1 (0.0-0.4) th/mm3 Baso # (Auto) 0.0 (0.0-0.2) th/mm3 Comprehensive Metabolic Panel 09/15/18 09/16/18 09/16/18 Range/Units 09:00 04:03 13:02 Sodium 137 137 137 (136-145) meq/L Potassium 4.8 5.1 4.5 (3.5-5.1) meq/L Chloride 101 103 102 (98-107) meq/L Carbon Dioxide 25.6 25.1 30.1 (21.0-32.0) meq/L BUN 36 H 45 H 28 H (7-18) mg/dL Creatinine 6.63 H 7.49 H 5.41 H (0.60-1.30) mg/dL Calcium 8.2 L 7.5 L 7.5 L (8.5-10.1) mg/dL Intake and Output 09/16/18 09/16/18 09/16/18 06:59 14:59 22:59 Intake Total 240 / 240 Output Total 0 / 0 2500 / 2500 Balance 240 / 240 -2500 / -2500 Intake: Oral 240 / 240 Output: Urine 0 / 0 Hemodialysis Amount 2500 / 2500 Other: Date of Last Bowel Movement 09/15/18 09/15/18 Weight 68 kg - Imaging and Cardiology Imaging: Impressions Chest X-Ray 09/15/18 00:00 CONCLUSION: No significant change. Persistent or recurrent right base consolidation and effusion. Assessment and Plan - Assessment (1) Nonsustained ventricular tachycardia Code(s): I47.2 - Ventricular tachycardia Status: Acute (2) Coronary artery disease Code(s): I25.10 - Atherosclerotic heart disease of [place] coronary artery without angina pectoris Status: Acute (3) Pneumonia Code(s): J18.9 - Pneumonia, unspecified organism Status: Acute (4) ESRD (end stage renal disease) on dialysis Code(s): N18.6 - End stage renal disease; Z99.2 - Dependence on renal dialysis Status: Acute (5) Gangrene of right foot Code(s): I96 - Gangrene, not elsewhere classified Status: Acute (6) Gangrene of toe of right foot Code(s): I96 - Gangrene, not elsewhere classified Status: Acute (7) Pseudoaneurysm of distal brachial artery Code(s): I72.1 - Aneurysm of artery of upper extremity Status: Acute (8) COPD (chronic obstructive pulmonary disease) Code(s): J44.9 - Chronic obstructive pulmonary disease, unspecified Status: Acute - Plan Patient had nonsustained ventricular tachycardia during dialysis, will restart his Coreg 25 mg twice a day. There is no indication for ICD placement at this time, will continue to monitor. We will order a 2D echo to evaluate his left ventricular function. Patient has necrotic toes, podiatry evaluation in progress. We will continue to follow the patient during his hospitalization. He will [facility] with [facility] after discharge. Patient was seen and evaluated by Dr. Downing who participated in care, management and decision-making. - Attending Attestation Patient seen and examined. I reviewed and agree with the evaluation and plan as presented. Tele c/w NSVT. Restart beta jeremie. Check echo to evaluate LV function. Continue monitoring. (3) Pneumonia Qualifiers: Pneumonia type: due to unspecified organism Laterality: right Lung location : lower lobe of lung Qualified Code(s): J18.1 - Lobar pneumonia, unspecified organism
[2018-09-17] MEDS: Heparin - SQ 10,000 UNITS/ML Vial SQ SCH ×3 (03:33→21:17)
[2018-09-17 04:44] LABS: Calcium 7.6 mg/dL (8.5-10.1); Carbon Dioxide 30.3 meq/L (21.0-32.0); Potassium 4.5 meq/L (3.5-5.1)
--- NOTE | 2018-09-17 09:08 | P.CONIM ---
History of Present Illness Service: [facility] Reason for Consult: Medical management Primary Care Provider: [facility] History of Present Illness: 67-year-old male with complex medical history including end-stage renal disease on hemodialysis, COPD, hypertension, diabetes admitted to the hospital for revision of AV fistula by vascular surgery. The patient was receiving dialysis and had a nonsustained run of ventricular tachycardia. At the time he denied any symptoms. Hospitalist service consulted to assist with medical management. The patient is seen in his room in the cardiac unit. He currently denies any chest pain or shortness of breath. Review of Systems All other systems reviewed negative except as stated in HPI [facility] - History History Provided By: Patient, Medical Record (Abdominal aneurysm, coronary artery disease, COPD, high cholesterol, hypertension, renal failure, [place], peripheral vascular disease, coronary artery stent, tobacco use, surgical note with recent endovascular graft repair of aneurysm) - Medical History Medical History: Medical History (Last Reviewed 09/17/18 @ 09:35 by Nigel Wu MD) CKD (chronic kidney disease) requiring chronic dialysis COPD (chronic obstructive pulmonary disease) Dialysis patient HTN (hypertension) Myocardial infarct Oxygen dependent - Surgical History Surgical History: Surgical History (Last Reviewed 09/17/18 @ 09:36 by Nigel Wu MD) H/O heart artery stent Hx of CABG S/P AAA repair Stented coronary artery - Family History Family History: Family History (Last Updated 09/17/18 @ 09:36 by Nigel Wu MD) Other Family history non-contributory - Social History I have reviewed the patient's Social History: Yes - Tobacco History Second Hand Smoke Exposure: No Smoking Status: Unknown if ever smoked Tobacco Type: Cigarettes - Alcohol History How Often Do You Have a Drink Containing Alcohol: Unable to Obtain - Substance Use History Substance History: No History of Abuse - Travel History Recent Travel in the [place] Within the Last 8 Weeks: No Recent Travel Out of the Country Within the Last 8 Weeks: No Medications and Allergies Active Medications: Active Medications Acetaminophen (Tylenol) 650 mg PO UNSCH X1 PRN PRN Reason: SEE LABEL COMMENTS Albuterol (Albuterol Neb (Prn)) 2.5 mg NEB Q4HR NEB PRN PRN Reason: SHORTNESS OF BREATH Last Admin: 09/16/18 20:45 Dose: 2.5 mg Alprazolam (Xanax) 1 mg PO UNSCH X1 PRN PRN Reason: SEE LABEL COMMENT Stop: 09/18/18 07:00 Last Admin: 09/16/18 08:26 Dose: 1 mg Carvedilol (Coreg) 25 mg PO BID [facility] Last Admin: 09/16/18 21:32 Dose: 25 mg Clonidine HCl (Catapres) 0.1 mg PO UNSCH X1 PRN PRN Reason: SEE LABEL COMMENTS Collagenase (Santyl Oint) 1 applicatio TOPICAL DAILY [facility] Last Admin: 09/16/18 16:07 Dose: 1 applicatio Diphenhydramine HCl (Benadryl) 25 mg PO UNSCH PRN PRN Reason: SEE LABEL COMMENTS Epoetin Joshua (Epogen Inj) 10,000 unit IV.PUSH UNSCH PRN PRN Reason: SEE LABEL COMMENTS Last Admin: 09/16/18 11:05 Dose: 10,000 unit Gelatin (Gelfoam 12 Mm/7 Mm Topical) 1 foam TOPICAL UNSCH PRN PRN Reason: help stop bleeding from site Gentamicin Sulfate (Gentamicin Inj) 20 mg OTHER WITH DIALYSIS PRN PRN Reason: Dwell Gentamycin Lock Last Admin: 09/16/18 11:35 Dose: 20 mg Heparin Sodium (Porcine) (Heparin Inj) 5,000 units SQ Q8H [facility] Last Admin: 09/17/18 03:33 Dose: 5,000 units Heparin Sodium (Porcine) (Heparin Inj) 0 units OTHER WITH DIALYSIS PRN PRN Reason: Dwell Heparin to Fill Catheter Heparin Sodium (Porcine) (Heparin Inj) 8,000 units OTHER WITH DIALYSIS PRN PRN Reason: for machine prime Hydromorphone HCl (Dilaudid) 2 mg PO Q4H PRN PRN Reason: PAIN SCALE 6 TO 10 Last Admin: 09/15/18 23:57 Dose: 2 mg Albumin Human (Flexbumin 25% Inj) 100 mls @ 60 mls/hr IV.SIG WITH DIALYSIS PRN PRN Reason: hypotension / volume replace Sodium Chloride (Ns Inj) 1,000 mls @ 0 mls/hr OTHER .Q0M PRN PRN Reason: for prime and rinse back Sodium Chloride (Ns Inj) 1,000 mls @ 200 mls/hr OTHER .Q5H PRN PRN Reason: for dialyzer flush PRN Sodium Chloride (Ns Inj) 1,000 mls @ 0 mls/hr IV.CONT .Q0M PRN PRN Reason: hypotension / volume replace Mannitol (Mannitol Inj) 12.5 gm IV.PUSH UNSCH PRN PRN Reason: hypotension / volume replace Morphine Sulfate (Morphine Inj) 2 mg IV.PUSH Q1H PRN PRN Reason: BREAKTHROUGH PAIN Last Admin: 09/16/18 02:28 Dose: 2 mg Nitroglycerin (Nitrostat Sl) 0.4 mg SL Q5M PRN PRN Reason: CHEST PAIN Ondansetron HCl (Zofran Inj) 4 mg IV.PUSH UNSCH X1 PRN PRN Reason: WITH DIALYSIS Oxycodone HCl (Roxicodone) 5 mg PO Q4H PRN PRN Reason: PAIN SCALE 1 TO 5 Last Admin: 09/17/18 03:33 Dose: 5 mg Sodium Chloride (Ns Flush) 5 ml IV.FLUSH UNSCH PRN PRN Reason: flush each lumen during HD Allergies Allergy/AdvReac Type Severity Reaction Status Date / Time topiramate [From Topamax] Allergy Unknown unknown Verified 08/31/18 11:31 Home Medications Medication Instructions Recorded Confirmed Type albuterol sulfate 1 puff INHALATION Q4-6H PRN 07/09/18 09/15/18 History amlodipine 10 mg PO DAILY 07/09/18 09/15/18 History aspirin 81 mg PO DAILY 07/09/18 09/15/18 History atorvastatin [Lipitor] 20 mg PO DAILY 07/09/18 09/15/18 History budesonide-formoterol [Symbicort] 2 puff INHALATION BID 07/09/18 09/15/18 History carvedilol [Coreg] 25 mg PO BID 07/09/18 09/15/18 History gabapentin 300 mg PO DAILY 07/09/18 09/15/18 History loratadine [Claritin] 20 mg PO DAILY 07/09/18 09/15/18 History omeprazole 20 mg PO DAILY 07/09/18 09/15/18 History sennosides-docusate sodium [Senna 1 tab PO BID 07/09/18 09/15/18 History Plus] bupropion HCl [Wellbutrin XL] 150 mg PO QAM 08/31/18 09/15/18 History calcium acetate 667 mg PO TID 08/31/18 09/15/18 History guaifenesin 600 mg PO Q12H 08/31/18 09/15/18 History sevelamer carbonate [Renvela] 800 mg PO DAILY 08/31/18 09/15/18 History alprazolam [Xanax] 0.25 mg PO DAILY 09/15/18 09/15/18 History Exam Vital signs: Vital Signs 09/16/18 10:00 09/16/18 11:00 09/16/18 11:45 Temperature Pulse Rate 76 87 168 H Respiratory Rate Blood Pressure Pulse Oximetry 09/16/18 12:00 09/16/18 13:00 09/16/18 14:00 Temperature Pulse Rate 88 78 76 Respiratory Rate 24 Blood Pressure 173/76 H Pulse Oximetry 98 09/16/18 15:00 09/16/18 15:25 09/16/18 16:00 Temperature 98.8 F Pulse Rate 79 79 81 Respiratory Rate 24 26 H Blood Pressure 167/65 H Pulse Oximetry 94 L 09/16/18 17:00 09/16/18 18:00 09/16/18 19:00 Temperature 98.6 F Pulse Rate 76 72 72 Respiratory Rate 20 Blood Pressure 143/64 H Pulse Oximetry 95 09/16/18 20:00 09/16/18 20:46 09/16/18 21:00 Temperature Pulse Rate 68 91 H 70 Respiratory Rate 18 Blood Pressure Pulse Oximetry 94 L 09/16/18 22:00 09/16/18 23:00 09/17/18 00:00 Temperature 98.1 F Pulse Rate 70 66 70 Respiratory Rate 20 Blood Pressure 128/58 L Pulse Oximetry 96 09/17/18 01:00 09/17/18 02:00 09/17/18 03:00 Temperature 98.6 F Pulse Rate 66 68 66 Respiratory Rate 20 Blood Pressure 136/63 Pulse Oximetry 95 09/17/18 04:00 09/17/18 05:00 09/17/18 06:00 Temperature Pulse Rate 72 66 62 Respiratory Rate Blood Pressure Pulse Oximetry 09/17/18 07:00 09/17/18 08:00 Temperature 98.5 F Pulse Rate 66 63 Respiratory Rate 22 Blood Pressure 128/56 L Pulse Oximetry 95 95 Intake & Output 09/16/18 09/17/18 09/17/18 18:59 06:59 18:59 Intake Total 800 / 800 0 / 0 Output Total 2500 / 2500 Balance -1700 / -1700 0 / 0 Weight 67 kg Intake: Oral 800 / 800 0 / 0 Output: Hemodialysis Amount 2500 / 2500 Other: Date of Last Bowel Movement 09/15/18 Narrative: GENERAL: Chronically ill-appearing male, in no apparent distress. CARDIOVASCULAR: Normal rate and regular rhythm without murmurs, gallops, or rubs. RESPIRATORY: Good respiratory efforts. Breath sounds equal and clear to auscultation bilaterally. GASTROINTESTINAL: Abdomen soft, non-tender, non-distended. Normal active bowel sounds MUSCULOSKELETAL: Multiple right toes with distal eschar. NEURO: Alert & Oriented x4 to person, place, time, situation. Moves all ext x4 PSYCH: Appropriate mood and affect. Results - Labs CBC & Chem 7: 09/16/18 04:03 09/17/18 03:28 Labs: Laboratory Results - last 24 hr 09/16/18 09/16/18 09/17/18 09:23 13:02 03:28 Sodium 137 139 Potassium 4.5 4.5 Chloride 102 102 Carbon Dioxide 30.1 30.3 Anion Gap 5 7 BUN 28 H 31 H Creatinine 5.41 H 6.19 H Estimated GFR 11 L 9 L POC Glucose 115 H Random Glucose 147 H 94 Calcium 7.5 L 7.6 L Assessment and Plan - Plan 67-year-old male admitted for AV graft revision, patient had nonsustained V. tach during hemodialysis. Status post left upper extremity brachial artery pseudoaneurysm repair and AVF revision -Vascular surgery following. Nonsustained V. tach: - Cardiology following. Patient was not on his regular home dose of Coreg. This has been restarted. - Continue to monitor on telemetry End-stage renal disease on hemodialysis: - Nephrology following. Dialysis as scheduled. Right foot ischemic eschars: -Podiatry following. Currently being treated with Santyl with plan for outpatient follow-up to consider debridement. -Pain control Hypertension: - Blood pressure currently acceptable. On Coreg as above. Normally takes amlodipine at home. Continue to monitor and restart as indicated. COPD: Resume home dose inhalers. GI prophylaxis: Stool softener PRN constipation. DVT PPx: Heparin sq Discharge Planning: Would probably benefit from home health. PT to evaluate. Plan to DC when cleared by Cardiology.
--- NOTE | 2018-09-17 10:07 | P.PNCA ---
Subjective Interval history: Patient denies any chest pain, pressure, palpitations, dizziness, edema or shortness of breath. Patient states that he feels fine. Medications and Allergies Allergies Allergy/AdvReac Type Severity Reaction Status Date / Time topiramate [From Topamax] Allergy Unknown unknown Verified 08/31/18 11:31 Home Medications Medication Instructions Recorded Confirmed Type albuterol sulfate 1 puff INHALATION Q4-6H PRN 07/09/18 09/15/18 History amlodipine 10 mg PO DAILY 07/09/18 09/15/18 History aspirin 81 mg PO DAILY 07/09/18 09/15/18 History atorvastatin [Lipitor] 20 mg PO DAILY 07/09/18 09/15/18 History budesonide-formoterol [Symbicort] 2 puff INHALATION BID 07/09/18 09/15/18 History carvedilol [Coreg] 25 mg PO BID 07/09/18 09/15/18 History gabapentin 300 mg PO DAILY 07/09/18 09/15/18 History loratadine [Claritin] 20 mg PO DAILY 07/09/18 09/15/18 History omeprazole 20 mg PO DAILY 07/09/18 09/15/18 History sennosides-docusate sodium [Senna 1 tab PO BID 07/09/18 09/15/18 History Plus] bupropion HCl [Wellbutrin XL] 150 mg PO QAM 08/31/18 09/15/18 History calcium acetate 667 mg PO TID 08/31/18 09/15/18 History guaifenesin 600 mg PO Q12H 08/31/18 09/15/18 History sevelamer carbonate [Renvela] 800 mg PO DAILY 08/31/18 09/15/18 History alprazolam [Xanax] 0.25 mg PO DAILY 09/15/18 09/15/18 History Active Medications: Active Medications Acetaminophen (Tylenol) 650 mg PO UNSCH X1 PRN PRN Reason: SEE LABEL COMMENTS Albuterol (Albuterol Neb (Prn)) 2.5 mg NEB Q4HR NEB PRN PRN Reason: SHORTNESS OF BREATH Last Admin: 09/16/18 20:45 Dose: 2.5 mg Albuterol (Ventolin Hfa Inh) 1 puff INH Q4HR NEB PRN PRN Reason: Shortness Of Breath Alprazolam (Xanax) 1 mg PO UNSCH X1 PRN PRN Reason: SEE LABEL COMMENT Stop: 09/18/18 07:00 Last Admin: 09/16/18 08:26 Dose: 1 mg Aspirin (Ecotrin) 81 mg PO DAILY [facility] Atorvastatin Calcium (Lipitor) 20 mg PO DAILY [facility] Budesonide/Formoterol Fumarate (Symbicort 160/4.5 Mcg Inh) 2 puff INH BID [facility] Carvedilol (Coreg) 25 mg PO BID [facility] Last Admin: 09/16/18 21:32 Dose: 25 mg Clonidine HCl (Catapres) 0.1 mg PO UNSCH X1 PRN PRN Reason: SEE LABEL COMMENTS Collagenase (Santyl Oint) 1 applicatio TOPICAL DAILY [facility] Last Admin: 09/16/18 16:07 Dose: 1 applicatio Diphenhydramine HCl (Benadryl) 25 mg PO UNSCH PRN PRN Reason: SEE LABEL COMMENTS Epoetin Joshua (Epogen Inj) 10,000 unit IV.PUSH UNSCH PRN PRN Reason: SEE LABEL COMMENTS Last Admin: 09/16/18 11:05 Dose: 10,000 unit Gelatin (Gelfoam 12 Mm/7 Mm Topical) 1 foam TOPICAL UNSCH PRN PRN Reason: help stop bleeding from site Gentamicin Sulfate (Gentamicin Inj) 20 mg OTHER WITH DIALYSIS PRN PRN Reason: Dwell Gentamycin Lock Last Admin: 09/16/18 11:35 Dose: 20 mg Heparin Sodium (Porcine) (Heparin Inj) 5,000 units SQ Q8H [facility] Last Admin: 09/17/18 03:33 Dose: 5,000 units Heparin Sodium (Porcine) (Heparin Inj) 0 units OTHER WITH DIALYSIS PRN PRN Reason: Dwell Heparin to Fill Catheter Heparin Sodium (Porcine) (Heparin Inj) 8,000 units OTHER WITH DIALYSIS PRN PRN Reason: for machine prime Hydromorphone HCl (Dilaudid) 2 mg PO Q4H PRN PRN Reason: PAIN SCALE 6 TO 10 Last Admin: 09/15/18 23:57 Dose: 2 mg Albumin Human (Flexbumin 25% Inj) 100 mls @ 60 mls/hr IV.SIG WITH DIALYSIS PRN PRN Reason: hypotension / volume replace Sodium Chloride (Ns Inj) 1,000 mls @ 0 mls/hr OTHER .Q0M PRN PRN Reason: for prime and rinse back Sodium Chloride (Ns Inj) 1,000 mls @ 200 mls/hr OTHER .Q5H PRN PRN Reason: for dialyzer flush PRN Sodium Chloride (Ns Inj) 1,000 mls @ 0 mls/hr IV.CONT .Q0M PRN PRN Reason: hypotension / volume replace Mannitol (Mannitol Inj) 12.5 gm IV.PUSH UNSCH PRN PRN Reason: hypotension / volume replace Morphine Sulfate (Morphine Inj) 2 mg IV.PUSH Q1H PRN PRN Reason: BREAKTHROUGH PAIN Last Admin: 09/16/18 02:28 Dose: 2 mg Nitroglycerin (Nitrostat Sl) 0.4 mg SL Q5M PRN PRN Reason: CHEST PAIN Ondansetron HCl (Zofran Inj) 4 mg IV.PUSH UNSCH X1 PRN PRN Reason: WITH DIALYSIS Oxycodone HCl (Roxicodone) 5 mg PO Q4H PRN PRN Reason: PAIN SCALE 1 TO 5 Last Admin: 09/17/18 03:33 Dose: 5 mg Pantoprazole Sodium (Protonix) 20 mg PO DAILY [facility] Sodium Chloride (Ns Flush) 5 ml IV.FLUSH UNSCH PRN PRN Reason: flush each lumen during HD Physical Exam Vital signs: Vital Signs 09/16/18 11:00 09/16/18 11:45 09/16/18 12:00 Temperature Pulse Rate 87 168 H 88 Respiratory Rate Blood Pressure Pulse Oximetry 09/16/18 13:00 09/16/18 14:00 09/16/18 15:00 Temperature Pulse Rate 78 76 79 Respiratory Rate 24 Blood Pressure 173/76 H Pulse Oximetry 98 09/16/18 15:25 09/16/18 16:00 09/16/18 17:00 Temperature 98.8 F Pulse Rate 79 81 76 Respiratory Rate 24 26 H Blood Pressure 167/65 H Pulse Oximetry 94 L 09/16/18 18:00 09/16/18 19:00 09/16/18 20:00 Temperature 98.6 F Pulse Rate 72 72 68 Respiratory Rate 20 Blood Pressure 143/64 H Pulse Oximetry 95 09/16/18 20:46 09/16/18 21:00 09/16/18 22:00 Temperature Pulse Rate 91 H 70 70 Respiratory Rate 18 Blood Pressure Pulse Oximetry 94 L 09/16/18 23:00 09/17/18 00:00 09/17/18 01:00 Temperature 98.1 F Pulse Rate 66 70 66 Respiratory Rate 20 Blood Pressure 128/58 L Pulse Oximetry 96 09/17/18 02:00 09/17/18 03:00 09/17/18 04:00 Temperature 98.6 F Pulse Rate 68 66 72 Respiratory Rate 20 Blood Pressure 136/63 Pulse Oximetry 95 09/17/18 05:00 09/17/18 06:00 09/17/18 07:00 Temperature 98.5 F Pulse Rate 66 62 66 Respiratory Rate 22 Blood Pressure 128/56 L Pulse Oximetry 95 09/17/18 08:00 09/17/18 09:00 09/17/18 10:00 Temperature Pulse Rate 63 66 64 Respiratory Rate Blood Pressure Pulse Oximetry 95 Intake & Output 09/16/18 09/17/18 09/17/18 18:59 06:59 18:59 Intake Total 800 / 800 0 / 0 Output Total 2500 / 2500 Balance -1700 / -1700 0 / 0 Weight 67 kg Intake: Oral 800 / 800 0 / 0 Output: Hemodialysis Amount 2500 / 2500 Other: Date of Last Bowel Movement 09/15/18 - Constitutional no acute distress - Routine HEENT Exam Head: Present: normocephalic Eye: Present: PERRL ENT: Present: mucous membranes moist - Routine Neck Exam Present: full ROM - Routine Respiratory Exam Present: rhonchi, crackles, diminished air movement Comments: Fine crackles throughout bilaterally - Routine Cardiovascular Exam Present: S1, S2. Absent: murmur, gallop, rubs - Routine Abdominal Exam Present: normoactive bowel sounds - Routine Extremities Exam Present: cyanosis, full ROM, AV fistula. Absent: clubbing, edema Comments: Necrotic toes - Routine Skin Exam Present: wounds - Routine Neurological Exam Present: oriented X3 - Detailed Neurological Exam: Coma Scale Eye Opening: Spontaneous Verbal Response: Oriented Motor Response: Obey commands [place] Coma Scale Total: 15 - Routine Psychiatric Exam Present: normal thought process Results 09/16/18 04:03 09/17/18 03:28 CBC 09/16/18 Range/Units 04:03 WBC 7.7 (4.0-11.0) th/mm3 RBC 2.97 L (4.50-5.90) mil/mm3 Hgb 8.9 L (13.0-17.0) gm/dL Hct 29.6 L (39.0-51.0) % Plt Count 75 L (150-450) th/mm3 Comprehensive Metabolic Panel 09/16/18 09/16/18 09/17/18 Range/Units 04:03 13:02 03:28 Sodium 137 137 139 (136-145) meq/L Potassium 5.1 4.5 4.5 (3.5-5.1) meq/L Chloride 103 102 102 (98-107) meq/L Carbon Dioxide 25.1 30.1 30.3 (21.0-32.0) meq/L BUN 45 H 28 H 31 H (7-18) mg/dL Creatinine 7.49 H 5.41 H 6.19 H (0.60-1.30) mg/dL Calcium 7.5 L 7.5 L 7.6 L (8.5-10.1) mg/dL Intake and Output 09/16/18 09/17/18 09/17/18 22:59 06:59 14:59 Intake Total 800 / 800 0 / 0 Balance 800 / 800 0 / 0 Intake: Oral 800 / 800 0 / 0 Other: Date of Last Bowel Movement 09/15/18 Weight 67 kg Assessment and Plan - Assessment (1) Nonsustained ventricular tachycardia Code(s): I47.2 - Ventricular tachycardia Status: Acute (2) Coronary artery disease Code(s): I25.10 - Atherosclerotic heart disease of [place] coronary artery without angina pectoris Status: Acute (3) Pneumonia Code(s): J18.9 - Pneumonia, unspecified organism Status: Acute (4) ESRD (end stage renal disease) on dialysis Code(s): N18.6 - End stage renal disease; Z99.2 - Dependence on renal dialysis Status: Acute (5) Gangrene of right foot Code(s): I96 - Gangrene, not elsewhere classified Status: Acute (6) Gangrene of toe of right foot Code(s): I96 - Gangrene, not elsewhere classified Status: Acute (7) Pseudoaneurysm of distal brachial artery Code(s): I72.1 - Aneurysm of artery of upper extremity Status: Acute (8) COPD (chronic obstructive pulmonary disease) Code(s): J44.9 - Chronic obstructive pulmonary disease, unspecified Status: Acute - Plan Patient sinus rhythm on monitor, no new episodes of ventricular tachycardia, continue with beta-jeremie. Patient to receive dialysis tomorrow we will monitor for any episodes of ventricular tachycardia. Check echo to evaluate LV function. There is no indication for ICD placement at this time, will continue to monitor. Patient has necrotic toes, podiatry evaluation in progress. We will continue to follow the patient during his hospitalization. He will follow up with [facility] room supervisor after discharge. Patient was seen and evaluated by Dr. Downing who participated in care, management and decision-making. - Attending Attestation Patient seen and examined. I reviewed and agree with the evaluation and plan as presented. No recurrent VT. Check echo to evaluate LV fx. Continue carvedilol. Monitor closely during dialysis tomorrow. (3) Pneumonia Qualifiers: Pneumonia type: due to unspecified organism Laterality: right Lung location : lower lobe of lung Qualified Code(s): J18.1 - Lobar pneumonia, unspecified organism
--- NOTE | 2018-09-17 11:09 | P.PNVS ---
Subjective Post Op Day #: 2 Procedure: L brachial artery bypass with cephalic vein, access revision Subjective/Hospital Course: 67/M with a PMH of COPD/ESRD on HD Pt S/P AVF access revision POD 1 While in HD had 2 episodes of V-tach Pt asymptomatic POD 2 Pt SR w/o any new episodes of V Tach Pt denied CP/SOB/Weakness L UE edematous (mild) Pt w/o complaints of hand pain Palpable distal pulse noted Objective Vital Signs / I&O: Vital Signs 09/16/18 11:00 09/16/18 11:45 09/16/18 12:00 Temperature Pulse Rate 87 168 H 88 Respiratory Rate Blood Pressure Pulse Oximetry 09/16/18 13:00 09/16/18 14:00 09/16/18 15:00 Temperature Pulse Rate 78 76 79 Respiratory Rate 24 Blood Pressure 173/76 H Pulse Oximetry 98 09/16/18 15:25 09/16/18 16:00 09/16/18 17:00 Temperature 98.8 F Pulse Rate 79 81 76 Respiratory Rate 24 26 H Blood Pressure 167/65 H Pulse Oximetry 94 L 09/16/18 18:00 09/16/18 19:00 09/16/18 20:00 Temperature 98.6 F Pulse Rate 72 72 68 Respiratory Rate 20 Blood Pressure 143/64 H Pulse Oximetry 95 09/16/18 20:46 09/16/18 21:00 09/16/18 22:00 Temperature Pulse Rate 91 H 70 70 Respiratory Rate 18 Blood Pressure Pulse Oximetry 94 L 09/16/18 23:00 09/17/18 00:00 09/17/18 01:00 Temperature 98.1 F Pulse Rate 66 70 66 Respiratory Rate 20 Blood Pressure 128/58 L Pulse Oximetry 96 09/17/18 02:00 09/17/18 03:00 09/17/18 04:00 Temperature 98.6 F Pulse Rate 68 66 72 Respiratory Rate 20 Blood Pressure 136/63 Pulse Oximetry 95 09/17/18 05:00 09/17/18 06:00 09/17/18 07:00 Temperature 98.5 F Pulse Rate 66 62 66 Respiratory Rate 22 Blood Pressure 128/56 L Pulse Oximetry 95 09/17/18 08:00 09/17/18 09:00 09/17/18 10:00 Temperature Pulse Rate 63 66 64 Respiratory Rate Blood Pressure Pulse Oximetry 95 Intake & Output 09/16/18 09/17/18 09/17/18 18:59 06:59 18:59 Intake Total 800 / 800 0 / 0 Output Total 2500 / 2500 Balance -1700 / -1700 0 / 0 Weight 67 kg Intake: Oral 800 / 800 0 / 0 Output: Hemodialysis Amount 2500 / 2500 Other: Date of Last Bowel Movement 09/15/18 Exam: Alert in NAD +S1,S2 Resp even L UE mildly swollen Palpable Radial pulses Strong chain tender strength Dressing to L UE I/C/D Laboratory Results - last 24 hr 09/16/18 09/17/18 13:02 03:28 Sodium 137 139 Potassium 4.5 4.5 Chloride 102 102 Carbon Dioxide 30.1 30.3 Anion Gap 5 7 BUN 28 H 31 H Creatinine 5.41 H 6.19 H Estimated GFR 11 L 9 L Random Glucose 147 H 94 Calcium 7.5 L 7.6 L Assessment and Plan - Assessment (1) ESRD (end stage renal disease) on dialysis Code(s): N18.6 - End stage renal disease; Z99.2 - Dependence on renal dialysis Status: Acute (2) Pseudoaneurysm of distal brachial artery Code(s): I72.1 - Aneurysm of artery of upper extremity Status: Acute - Plan POD#2 Pt s/p L UE brachial artery pseudoaneurysm repair and AVF revision arm perfused and access patent AM labs reviewed No recent V-tach episodes noted Plan Cancel D/C Consult Hospitalist for transfer of care and medical management Continue cardiac w/u Kinga Moreau NP [facility]/[place] [phone] Discharge Plannin-2 days - Attending Attestation I saw and examined the patient agree with the A/P
[2018-09-17] MEDS: Carvedilol 12.5 MG Tablet PO SCH ×2 (12:22→21:17)
[2018-09-17] MEDS: Collagenase Oint 30 GM Tube TOPICAL SCH (12:22)
[2018-09-17] MEDS: Pantoprazole Sodium 20 MG DR Tablet PO SCH (12:28)
--- NOTE | 2018-09-17 18:38 | P.PNNP ---
Subjective Interval history: patient was sleepy this morning when I saw him. He was not in distress. Events noted. Had episodes of Ventricular tachycardia at dialysis. Seen by cardiology. Beta jeremie recommended. Now remains in NSR. Physical Exam Vital signs: Vital Signs 09/16/18 19:00 09/16/18 20:00 09/16/18 20:46 Temperature 98.6 F Pulse Rate 72 68 91 H Respiratory Rate 20 18 Blood Pressure 143/64 H Pulse Oximetry 95 94 L 09/16/18 21:00 09/16/18 22:00 09/16/18 23:00 Temperature 98.1 F Pulse Rate 70 70 66 Respiratory Rate 20 Blood Pressure 128/58 L Pulse Oximetry 96 09/17/18 00:00 09/17/18 01:00 09/17/18 02:00 Temperature Pulse Rate 70 66 68 Respiratory Rate Blood Pressure Pulse Oximetry 09/17/18 03:00 09/17/18 04:00 09/17/18 05:00 Temperature 98.6 F Pulse Rate 66 72 66 Respiratory Rate 20 Blood Pressure 136/63 Pulse Oximetry 95 09/17/18 06:00 09/17/18 07:00 09/17/18 08:00 Temperature 98.5 F Pulse Rate 62 66 63 Respiratory Rate 22 Blood Pressure 128/56 L Pulse Oximetry 95 95 09/17/18 09:00 09/17/18 10:00 09/17/18 10:59 Temperature Pulse Rate 66 64 Respiratory Rate Blood Pressure Pulse Oximetry 95 09/17/18 11:00 09/17/18 12:00 09/17/18 13:00 Temperature 98.3 F Pulse Rate 63 64 66 Respiratory Rate 20 Blood Pressure 124/52 L Pulse Oximetry 95 09/17/18 14:00 09/17/18 15:00 09/17/18 16:00 Temperature 98.5 F Pulse Rate 64 64 64 Respiratory Rate 20 Blood Pressure 130/58 L Pulse Oximetry 96 09/17/18 17:00 09/17/18 17:26 09/17/18 18:00 Temperature Pulse Rate 62 64 Respiratory Rate Blood Pressure Pulse Oximetry 96 Intake & Output 09/16/18 09/17/18 09/17/18 18:59 06:59 18:59 Intake Total 800 / 800 0 / 0 1075 / 1075 Output Total 2500 / 2500 0 / 0 Balance -1700 / -1700 0 / 0 1075 / 1075 Weight 67 kg Intake: Oral 800 / 800 0 / 0 1075 / 1075 Output: Urine 0 / 0 Hemodialysis Amount 2500 / 2500 Other: Date of Last Bowel Movement 09/15/18 # Bowel Movements 0 Narrative: GENERAL: Chronically ill-appearing male, in no apparent distress. CARDIOVASCULAR: Normal rate and regular rhythm without murmurs, gallops, or rubs. RESPIRATORY: Good respiratory efforts. Breath sounds equal and clear to auscultation bilaterally. GASTROINTESTINAL: Abdomen soft, non-tender, non-distended. Normal active bowel sounds MUSCULOSKELETAL: ischemic ulcers on toes of right foot. AVF on the left arm, it is patent. NEURO: somnolent. PSYCH: Appropriate mood and affect. Assessment and Plan - Assessment (1) ESRD (end stage renal disease) on dialysis Code(s): N18.6 - End stage renal disease; Z99.2 - Dependence on renal dialysis Status: Acute Plan: Dialysis will be continued MWF. Monitor fluid and electrolytes. Avoid Gadolinium. (2) Anemia Code(s): D64.9 - Anemia, unspecified Status: Acute Qualifiers: Anemia type: unspecified type Qualified Code(s): D64.9 - Anemia, unspecified Plan: Epogen with dialysis. (3) COPD (chronic obstructive pulmonary disease) Code(s): J44.9 - Chronic obstructive pulmonary disease, unspecified Status: Acute Plan: rule out CO2 narcosis. Patient is drowsy. (4) Gangrene of right foot Code(s): I96 - Gangrene, not elsewhere classified Status: Acute Plan: management per primary team. (5) Nonsustained ventricular tachycardia Code(s): I47.2 - Ventricular tachycardia Status: Acute Plan: Seen by cardiology. Carvedilol started.
[2018-09-18] MEDS: Heparin - SQ 10,000 UNITS/ML Vial SQ SCH ×3 (04:37→20:15)
[2018-09-18] MEDS: Budesonide-Formoterol 160/4.5 MCG 6 GM Inhaler INH SCH ×3 (05:42→20:17)
[2018-09-18 08:09] LABS: Hematocrit 28.7 % (39.0-51.0); Hemoglobin 8.6 gm/dL (13.0-17.0); Mean Corpuscular Hemoglobin 29.8 pg (27.0-34.0); Mean Corpuscular Volume 99.3 fL (80.0-100.0); Mean Platelet Volume 8.2 fL (7.0-11.0); Platelet Count 59 th/mm3 (150-450); Red Blood Count 2.89 mil/mm3 (4.50-5.90); Red Cell Distribution Width 19.2 % (11.6-17.2); White Blood Count 5.5 th/mm3 (4.0-11.0)
[2018-09-18 08:45] LABS: Calcium 8.2 mg/dL (8.5-10.1); Carbon Dioxide 27.3 meq/L (21.0-32.0); Potassium 4.9 meq/L (3.5-5.1)
[2018-09-18] MEDS: Pantoprazole Sodium 20 MG DR Tablet PO SCH (10:01)
[2018-09-18] MEDS: Carvedilol 12.5 MG Tablet PO SCH ×2 (10:01→20:17)
[2018-09-18] MEDS: Collagenase Oint 30 GM Tube TOPICAL SCH (10:02)
--- NOTE | 2018-09-18 12:15 | P.PNVS ---
Subjective Post Op Day #: 3 Procedure: L brachial artery bypass with cephalic vein, access revision Subjective/Hospital Course: 67/M with a PMH of COPD/ESRD on HD Pt S/P AVF access revision POD 1 While in HD had 2 episodes of V-tach Pt asymptomatic POD 2 Pt SR w/o any new episodes of V Tach Pt denied CP/SOB/Weakness L UE edematous (mild) Pt w/o complaints of hand pain Palpable distal pulse noted POD 3 Pt in good spirits this am Pt c/o L UE discomfort L UE swelling improving Pt w/o hand pain Pt denied any CP/SOB/Weakness Dressing to L UE removed Objective Vital Signs / I&O: Vital Signs 09/17/18 13:00 09/17/18 14:00 09/17/18 15:00 Temperature 98.5 F Pulse Rate 66 64 64 Respiratory Rate 20 Blood Pressure 130/58 L Pulse Oximetry 96 09/17/18 16:00 09/17/18 17:00 09/17/18 17:26 Temperature Pulse Rate 64 62 Respiratory Rate Blood Pressure Pulse Oximetry 96 09/17/18 18:00 09/17/18 19:00 09/17/18 20:00 Temperature Pulse Rate 64 65 64 Respiratory Rate Blood Pressure Pulse Oximetry 98 09/17/18 20:13 09/17/18 21:00 09/17/18 22:00 Temperature 97.7 F Pulse Rate 65 65 62 Respiratory Rate 18 Blood Pressure 145/65 H Pulse Oximetry 98 09/17/18 23:00 09/18/18 00:00 09/18/18 01:00 Temperature 98 F Pulse Rate 62 61 60 Respiratory Rate 18 Blood Pressure 150/65 H Pulse Oximetry 98 09/18/18 02:00 09/18/18 03:00 09/18/18 04:00 Temperature 98 F Pulse Rate 67 67 66 Respiratory Rate 18 Blood Pressure 158/73 H Pulse Oximetry 98 09/18/18 05:00 09/18/18 06:00 09/18/18 07:00 Temperature 97.8 F Pulse Rate 66 67 73 Respiratory Rate 18 Blood Pressure 146/68 H Pulse Oximetry 98 09/18/18 08:00 09/18/18 09:00 09/18/18 10:00 Temperature Pulse Rate 76 70 70 Respiratory Rate Blood Pressure Pulse Oximetry 98 09/18/18 10:59 09/18/18 11:00 Temperature Pulse Rate 66 Respiratory Rate 18 Blood Pressure Pulse Oximetry Intake & Output 09/17/18 09/18/18 09/18/18 18:59 06:59 18:59 Intake Total 1075 / 1075 240 / 240 Output Total 0 / 0 0 / 0 Balance 1075 / 1075 240 / 240 Weight 67.9 kg Intake: Oral 1075 / 1075 240 / 240 Output: Urine 0 / 0 0 / 0 Other: Date of Last Bowel Movement 09/15/18 # Bowel Movements 0 0 Exam: Mild edema to L UE palpable L radial pulse Incision intact to L UE + thrill near L UE AVF No c/o hand pain Laboratory Results - last 24 hr 09/18/18 09/18/18 06:59 06:59 WBC 5.5 RBC 2.89 L Hgb 8.6 L Hct 28.7 L MCV 99.3 MCH 29.8 MCHC 30.0 L RDW 19.2 H Plt Count 59 L MPV 8.2 Sodium 134 L Potassium 4.9 Chloride 96 L Carbon Dioxide 27.3 Anion Gap 11 BUN 38 H Creatinine 7.45 H Estimated GFR 7 L Random Glucose 92 Calcium 8.2 L Assessment and Plan - Assessment (1) ESRD (end stage renal disease) on dialysis Code(s): N18.6 - End stage renal disease; Z99.2 - Dependence on renal dialysis Status: Acute (2) Pseudoaneurysm of distal brachial artery Code(s): I72.1 - Aneurysm of artery of upper extremity Status: Acute - Plan POD#3 Pt s/p L UE brachial artery pseudoaneurysm repair and AVF revision Arm perfused and access patent Plan Surgical dressing removed- Leave incision open to air May apply a dry dressing to L UE if drainage present Elevate L LE if swelling present D/C planning will arrange out pt f/u in 2W Kinga Moreau NP [facility]/[place] [phone] Discharge Planning: Pt clear for D/C from a vascular stand point Will arrange out pt f/u
[2018-09-18] MEDS: ALPRAZolam 0.25 MG Tablet PO PRN (14:41)
--- NOTE | 2018-09-18 15:19 | P.PNCA ---
Subjective Interval history: Patient denies any chest pain, pressure, palpitations, dizziness or shortness of breath. Patient does complain of swelling in the lower extremities. Medications and Allergies Allergies Allergy/AdvReac Type Severity Reaction Status Date / Time topiramate [From Topamax] Allergy Unknown unknown Verified 08/31/18 11:31 Home Medications Medication Instructions Recorded Confirmed Type albuterol sulfate 1 puff INHALATION Q4-6H PRN 07/09/18 09/15/18 History amlodipine 10 mg PO DAILY 07/09/18 09/15/18 History aspirin 81 mg PO DAILY 07/09/18 09/15/18 History atorvastatin [Lipitor] 20 mg PO DAILY 07/09/18 09/15/18 History budesonide-formoterol [Symbicort] 2 puff INHALATION BID 07/09/18 09/15/18 History carvedilol [Coreg] 25 mg PO BID 07/09/18 09/15/18 History gabapentin 300 mg PO DAILY 07/09/18 09/15/18 History loratadine [Claritin] 20 mg PO DAILY 07/09/18 09/15/18 History omeprazole 20 mg PO DAILY 07/09/18 09/15/18 History sennosides-docusate sodium [Senna 1 tab PO BID 07/09/18 09/15/18 History Plus] bupropion HCl [Wellbutrin XL] 150 mg PO QAM 08/31/18 09/15/18 History calcium acetate 667 mg PO TID 08/31/18 09/15/18 History guaifenesin 600 mg PO Q12H 08/31/18 09/15/18 History sevelamer carbonate [Renvela] 800 mg PO DAILY 08/31/18 09/15/18 History alprazolam [Xanax] 0.25 mg PO DAILY 09/15/18 09/15/18 History Active Medications: Active Medications Acetaminophen (Tylenol) 650 mg PO UNSCH X1 PRN PRN Reason: SEE LABEL COMMENTS Albuterol (Albuterol Neb (Prn)) 2.5 mg NEB Q4HR NEB PRN PRN Reason: SHORTNESS OF BREATH Last Admin: 09/16/18 20:45 Dose: 2.5 mg Albuterol (Ventolin Hfa Inh) 1 puff INH Q4HR NEB PRN PRN Reason: Shortness Of Breath Alprazolam (Xanax) 0.25 mg PO DAILY PRN PRN Reason: ANXIETY Last Admin: 09/18/18 14:41 Dose: 0.25 mg Aspirin (Ecotrin) 81 mg PO DAILY [facility] Last Admin: 09/18/18 10:01 Dose: 81 mg Atorvastatin Calcium (Lipitor) 20 mg PO DAILY [facility] Last Admin: 09/18/18 10:01 Dose: 20 mg Budesonide/Formoterol Fumarate (Symbicort 160/4.5 Mcg Inh) 2 puff INH BID [facility] Last Admin: 09/18/18 10:02 Dose: 2 puff Carvedilol (Coreg) 25 mg PO BID [facility] Last Admin: 09/18/18 10:01 Dose: 25 mg Clonidine HCl (Catapres) 0.1 mg PO UNSCH X1 PRN PRN Reason: SEE LABEL COMMENTS Collagenase (Santyl Oint) 1 applicatio TOPICAL DAILY [facility] Last Admin: 09/18/18 10:02 Dose: 1 applicatio Diphenhydramine HCl (Benadryl) 25 mg PO UNSCH PRN PRN Reason: SEE LABEL COMMENTS Epoetin Joshua (Epogen Inj) 10,000 unit IV.PUSH UNSCH PRN PRN Reason: SEE LABEL COMMENTS Last Admin: 09/16/18 11:05 Dose: 10,000 unit Gelatin (Gelfoam 12 Mm/7 Mm Topical) 1 foam TOPICAL UNSCH PRN PRN Reason: help stop bleeding from site Gentamicin Sulfate (Gentamicin Inj) 20 mg OTHER WITH DIALYSIS PRN PRN Reason: Dwell Gentamycin Lock Last Admin: 09/16/18 11:35 Dose: 20 mg Heparin Sodium (Porcine) (Heparin Inj) 5,000 units SQ Q8H [facility] Last Admin: 09/18/18 13:19 Dose: 5,000 units Heparin Sodium (Porcine) (Heparin Inj) 0 units OTHER WITH DIALYSIS PRN PRN Reason: Dwell Heparin to Fill Catheter Heparin Sodium (Porcine) (Heparin Inj) 8,000 units OTHER WITH DIALYSIS PRN PRN Reason: for machine prime Hydromorphone HCl (Dilaudid) 2 mg PO Q4H PRN PRN Reason: PAIN SCALE 6 TO 10 Last Admin: 09/15/18 23:57 Dose: 2 mg Albumin Human (Flexbumin 25% Inj) 100 mls @ 60 mls/hr IV.SIG WITH DIALYSIS PRN PRN Reason: hypotension / volume replace Sodium Chloride (Ns Inj) 1,000 mls @ 0 mls/hr OTHER .Q0M PRN PRN Reason: for prime and rinse back Sodium Chloride (Ns Inj) 1,000 mls @ 200 mls/hr OTHER .Q5H PRN PRN Reason: for dialyzer flush PRN Sodium Chloride (Ns Inj) 1,000 mls @ 0 mls/hr IV.CONT .Q0M PRN PRN Reason: hypotension / volume replace Mannitol (Mannitol Inj) 12.5 gm IV.PUSH UNSCH PRN PRN Reason: hypotension / volume replace Morphine Sulfate (Morphine Inj) 2 mg IV.PUSH Q1H PRN PRN Reason: BREAKTHROUGH PAIN Last Admin: 09/16/18 02:28 Dose: 2 mg Nitroglycerin (Nitrostat Sl) 0.4 mg SL Q5M PRN PRN Reason: CHEST PAIN Ondansetron HCl (Zofran Inj) 4 mg IV.PUSH UNSCH X1 PRN PRN Reason: WITH DIALYSIS Oxycodone HCl (Roxicodone) 5 mg PO Q4H PRN PRN Reason: PAIN SCALE 1 TO 5 Last Admin: 09/18/18 14:41 Dose: 5 mg Pantoprazole Sodium (Protonix) 20 mg PO DAILY [facility] Last Admin: 09/18/18 10:01 Dose: 20 mg Sodium Chloride (Ns Flush) 5 ml IV.FLUSH UNSCH PRN PRN Reason: flush each lumen during HD Physical Exam Vital signs: Vital Signs 09/17/18 16:00 09/17/18 17:00 09/17/18 17:26 Temperature Pulse Rate 64 62 Respiratory Rate Blood Pressure Pulse Oximetry 96 09/17/18 18:00 09/17/18 19:00 09/17/18 20:00 Temperature Pulse Rate 64 65 64 Respiratory Rate Blood Pressure Pulse Oximetry 98 09/17/18 20:13 09/17/18 21:00 09/17/18 22:00 Temperature 97.7 F Pulse Rate 65 65 62 Respiratory Rate 18 Blood Pressure 145/65 H Pulse Oximetry 98 09/17/18 23:00 09/18/18 00:00 09/18/18 01:00 Temperature 98 F Pulse Rate 62 61 60 Respiratory Rate 18 Blood Pressure 150/65 H Pulse Oximetry 98 09/18/18 02:00 09/18/18 03:00 09/18/18 04:00 Temperature 98 F Pulse Rate 67 67 66 Respiratory Rate 18 Blood Pressure 158/73 H Pulse Oximetry 98 09/18/18 05:00 09/18/18 06:00 09/18/18 07:00 Temperature 97.8 F Pulse Rate 66 67 73 Respiratory Rate 18 Blood Pressure 146/68 H Pulse Oximetry 98 09/18/18 08:00 09/18/18 09:00 09/18/18 10:00 Temperature Pulse Rate 76 70 70 Respiratory Rate Blood Pressure Pulse Oximetry 98 09/18/18 10:59 09/18/18 11:00 09/18/18 12:00 Temperature 98.2 F Pulse Rate 67 76 Respiratory Rate 18 18 Blood Pressure 162/70 H Pulse Oximetry 98 09/18/18 13:00 Temperature Pulse Rate 68 Respiratory Rate Blood Pressure Pulse Oximetry Intake & Output 09/17/18 09/18/18 09/18/18 18:59 06:59 18:59 Intake Total 1075 / 1075 240 / 240 Output Total 0 / 0 0 / 0 Balance 1075 / 1075 240 / 240 Weight 67.9 kg Intake: Oral 1075 / 1075 240 / 240 Output: Urine 0 / 0 0 / 0 Other: Date of Last Bowel Movement 09/15/18 # Bowel Movements 0 0 - Constitutional no acute distress - Routine HEENT Exam Head: Present: normocephalic Eye: Present: PERRL ENT: Present: mucous membranes moist - Routine Neck Exam Present: full ROM - Routine Respiratory Exam Present: crackles Comments: Crackles lower lobes bilaterally - Routine Cardiovascular Exam Present: S1, S2, murmur. Absent: gallop, rubs - Routine Abdominal Exam Present: normoactive bowel sounds - Routine Extremities Exam Present: edema, full ROM, AV fistula. Absent: cyanosis, clubbing - Routine Skin Exam Present: wounds Comments: Lower legs and feet - Routine Neurological Exam Present: oriented X3 - Detailed Neurological Exam: Coma Scale Eye Opening: Spontaneous Verbal Response: Oriented Motor Response: Obey commands [place] Coma Scale Total: 15 - Routine Psychiatric Exam Present: normal affect Results 09/18/18 06:59 09/18/18 06:59 CBC 09/18/18 Range/Units 06:59 WBC 5.5 (4.0-11.0) th/mm3 RBC 2.89 L (4.50-5.90) mil/mm3 Hgb 8.6 L (13.0-17.0) gm/dL Hct 28.7 L (39.0-51.0) % Plt Count 59 L (150-450) th/mm3 Comprehensive Metabolic Panel 09/17/18 09/18/18 Range/Units 03:28 06:59 Sodium 139 134 L (136-145) meq/L Potassium 4.5 4.9 (3.5-5.1) meq/L Chloride 102 96 L (98-107) meq/L Carbon Dioxide 30.3 27.3 (21.0-32.0) meq/L BUN 31 H 38 H (7-18) mg/dL Creatinine 6.19 H 7.45 H (0.60-1.30) mg/dL Calcium 7.6 L 8.2 L (8.5-10.1) mg/dL Intake and Output 09/18/18 09/18/18 09/18/18 06:59 14:59 22:59 Intake Total 240 / 240 Output Total 0 / 0 Balance 240 / 240 Intake: Oral 240 / 240 Output: Urine 0 / 0 Other: Date of Last Bowel Movement 09/15/18 # Bowel Movements 0 Weight 67.9 kg Assessment and Plan - Assessment (1) Nonsustained ventricular tachycardia Code(s): I47.2 - Ventricular tachycardia Status: Acute (2) Coronary artery disease Code(s): I25.10 - Atherosclerotic heart disease of [place] coronary artery without angina pectoris Status: Acute (3) Pneumonia Code(s): J18.9 - Pneumonia, unspecified organism Status: Acute (4) ESRD (end stage renal disease) on dialysis Code(s): N18.6 - End stage renal disease; Z99.2 - Dependence on renal dialysis Status: Acute (5) Gangrene of right foot Code(s): I96 - Gangrene, not elsewhere classified Status: Acute (6) Gangrene of toe of right foot Code(s): I96 - Gangrene, not elsewhere classified Status: Acute (7) Pseudoaneurysm of distal brachial artery Code(s): I72.1 - Aneurysm of artery of upper extremity Status: Acute (8) COPD (chronic obstructive pulmonary disease) Code(s): J44.9 - Chronic obstructive pulmonary disease, unspecified Status: Acute - Plan Patient scheduled for dialysis today, will monitor closely for ventricular tachycardia. He currently in sinus rhythm on monitor, continue with beta-jeremie. There is no indication for ICD placement at this time, will continue to monitor. Podiatry evaluation in progress for necrotic toes. We will continue to follow patient during his hospitalization. He will follow- up with TX hopper filler after discharge. Patient was seen and evaluated by Dr. Downing who participated in care, management and decision-making. - Attending Attestation Patient seen and examined. I reviewed and agree with the evaluation and plan as presented. Continue monitoring. Dialysis today. Continue carvedilol. Increase activity. Check echo. (3) Pneumonia Qualifiers: Pneumonia type: due to unspecified organism Laterality: right Lung location : lower lobe of lung Qualified Code(s): J18.1 - Lobar pneumonia, unspecified organism
--- NOTE | 2018-09-18 16:00 | P.PNNP ---
Subjective Interval history: patient was seen and examined during dialysis. He is much more alert today. Complains of pain in the left upper extremity. Also complains of pain in the leg and feet. Physical Exam Vital signs: Vital Signs 09/17/18 16:00 09/17/18 17:00 09/17/18 17:26 Temperature Pulse Rate 64 62 Respiratory Rate Blood Pressure Pulse Oximetry 96 09/17/18 18:00 09/17/18 19:00 09/17/18 20:00 Temperature Pulse Rate 64 65 64 Respiratory Rate Blood Pressure Pulse Oximetry 98 09/17/18 20:13 09/17/18 21:00 09/17/18 22:00 Temperature 97.7 F Pulse Rate 65 65 62 Respiratory Rate 18 Blood Pressure 145/65 H Pulse Oximetry 98 09/17/18 23:00 09/18/18 00:00 09/18/18 01:00 Temperature 98 F Pulse Rate 62 61 60 Respiratory Rate 18 Blood Pressure 150/65 H Pulse Oximetry 98 09/18/18 02:00 09/18/18 03:00 09/18/18 04:00 Temperature 98 F Pulse Rate 67 67 66 Respiratory Rate 18 Blood Pressure 158/73 H Pulse Oximetry 98 09/18/18 05:00 09/18/18 06:00 09/18/18 07:00 Temperature 97.8 F Pulse Rate 66 67 73 Respiratory Rate 18 Blood Pressure 146/68 H Pulse Oximetry 98 09/18/18 08:00 09/18/18 09:00 09/18/18 10:00 Temperature Pulse Rate 76 70 70 Respiratory Rate Blood Pressure Pulse Oximetry 98 09/18/18 10:59 09/18/18 11:00 09/18/18 12:00 Temperature 98.2 F Pulse Rate 67 76 Respiratory Rate 18 18 Blood Pressure 162/70 H Pulse Oximetry 98 09/18/18 13:00 Temperature Pulse Rate 68 Respiratory Rate Blood Pressure Pulse Oximetry Intake & Output 09/17/18 09/18/18 09/18/18 18:59 06:59 18:59 Intake Total 1075 / 1075 240 / 240 Output Total 0 / 0 0 / 0 Balance 1075 / 1075 240 / 240 Weight 67.9 kg Intake: Oral 1075 / 1075 240 / 240 Output: Urine 0 / 0 0 / 0 Other: Date of Last Bowel Movement 10/16/18 # Bowel Movements 0 0 Narrative: GENERAL: Chronically ill-appearing male, in no apparent distress. CARDIOVASCULAR: Normal rate and regular rhythm without murmurs, gallops, or rubs. RESPIRATORY: Good respiratory efforts. Breath sounds equal and clear to auscultation bilaterally. GASTROINTESTINAL: Abdomen soft, non-tender, non-distended. Normal active bowel sounds MUSCULOSKELETAL: ischemic ulcers on toes of right foot. AVF on the left arm, it is patent. NEURO: much more alert today. No focal deficits. Assessment and Plan - Assessment (1) ESRD (end stage renal disease) on dialysis Code(s): N18.6 - End stage renal disease; Z99.2 - Dependence on renal dialysis Status: Acute Plan: Dialysis will be continued MWF. Monitor fluid and electrolytes. Avoid Gadolinium. (2) Anemia Code(s): D64.9 - Anemia, unspecified Status: Acute Qualifiers: Anemia type: unspecified type Qualified Code(s): D64.9 - Anemia, unspecified Plan: Epogen with dialysis. (3) COPD (chronic obstructive pulmonary disease) Code(s): J44.9 - Chronic obstructive pulmonary disease, unspecified Status: Acute Plan: bronchodilators. Monitor. (4) Gangrene of right foot Code(s): I96 - Gangrene, not elsewhere classified Status: Acute Plan: management per primary team. (5) Nonsustained ventricular tachycardia Code(s): I47.2 - Ventricular tachycardia Status: Acute Plan: Seen by cardiology. Carvedilol started.
--- NOTE | 2018-09-18 16:35 | P.PNIM ---
Subjective Interval history: Patient reports is feeling okay today. He states he will not go to dialysis unless he receive Xanax. He takes that at home regularly. Physical Exam Vital signs: Vital Signs 09/17/18 17:00 09/17/18 17:26 09/17/18 18:00 Temperature Pulse Rate 62 64 Respiratory Rate Blood Pressure Pulse Oximetry 96 09/17/18 19:00 09/17/18 20:00 09/17/18 20:13 Temperature 97.7 F Pulse Rate 65 64 65 Respiratory Rate 18 Blood Pressure 145/65 H Pulse Oximetry 98 98 09/17/18 21:00 09/17/18 22:00 09/17/18 23:00 Temperature 98 F Pulse Rate 65 62 62 Respiratory Rate 18 Blood Pressure 150/65 H Pulse Oximetry 98 09/18/18 00:00 09/18/18 01:00 09/18/18 02:00 Temperature Pulse Rate 61 60 67 Respiratory Rate Blood Pressure Pulse Oximetry 09/18/18 03:00 09/18/18 04:00 09/18/18 05:00 Temperature 98 F Pulse Rate 67 66 66 Respiratory Rate 18 Blood Pressure 158/73 H Pulse Oximetry 98 09/18/18 06:00 09/18/18 07:00 09/18/18 08:00 Temperature 97.8 F Pulse Rate 67 73 76 Respiratory Rate 18 Blood Pressure 146/68 H Pulse Oximetry 98 98 09/18/18 09:00 09/18/18 10:00 09/18/18 10:59 Temperature Pulse Rate 70 70 Respiratory Rate 18 Blood Pressure Pulse Oximetry 09/18/18 11:00 09/18/18 12:00 09/18/18 13:00 Temperature 98.2 F Pulse Rate 67 76 68 Respiratory Rate 18 Blood Pressure 162/70 H Pulse Oximetry 98 09/18/18 14:00 09/18/18 15:00 09/18/18 16:00 Temperature Pulse Rate 80 73 78 Respiratory Rate Blood Pressure Pulse Oximetry Intake & Output 09/17/18 09/18/18 09/18/18 18:59 06:59 18:59 Intake Total 1075 / 1075 240 / 240 Output Total 0 / 0 0 / 0 Balance 1075 / 1075 240 / 240 Weight 67.9 kg Intake: Oral 1075 / 1075 240 / 240 Output: Urine 0 / 0 0 / 0 Other: Date of Last Bowel Movement 09/15/18 # Bowel Movements 0 0 Narrative: GENERAL: Chronically ill-appearing male, in no apparent distress. CARDIOVASCULAR: Normal rate and regular rhythm without murmurs, gallops, or rubs. RESPIRATORY: Good respiratory efforts. Breath sounds equal and clear to auscultation bilaterally. GASTROINTESTINAL: Abdomen soft, non-tender, non-distended. Normal active bowel sounds MUSCULOSKELETAL: ischemic ulcers on toes of right foot. AVF on the left arm, it is patent. NEURO: Alert and oriented. Results - Labs CBC & Chem 7: 09/18/18 06:59 09/18/18 06:59 Laboratory Results - last 24 hr 09/18/18 09/18/18 06:59 06:59 WBC 5.5 RBC 2.89 L Hgb 8.6 L Hct 28.7 L MCV 99.3 MCH 29.8 MCHC 30.0 L RDW 19.2 H Plt Count 59 L MPV 8.2 Sodium 134 L Potassium 4.9 Chloride 96 L Carbon Dioxide 27.3 Anion Gap 11 BUN 38 H Creatinine 7.45 H Estimated GFR 7 L Random Glucose 92 Calcium 8.2 L Assessment and Plan - Plan 67-year-old male admitted for AV graft revision, patient had nonsustained V. tach during hemodialysis. Status post left upper extremity brachial artery pseudoaneurysm repair and AVF revision -Vascular surgery following and cleared for discharge. Nonsustained V. tach: - Cardiology following. Patient was not on his regular home dose of Coreg. This has been restarted. - Continue to monitor on telemetry. Echocardiogram per cardiology. End-stage renal disease on hemodialysis: - Nephrology following. Dialysis as scheduled. Right foot ischemic eschars: -Podiatry following. Currently being treated with Santyl with plan for outpatient follow-up to consider debridement. -Pain control Hypertension: - Blood pressure currently acceptable. On Coreg as above. Normally takes amlodipine at home. Continue to monitor and restart as indicated. COPD: Resume home dose inhalers. GI prophylaxis: Stool softener PRN constipation. DVT PPx: Heparin sq Discharge Planning: Would probably benefit from home health. However patient is likely to refuse. Plan to DC when cleared by Cardiology. Continue to monitor on telemetry to ensure he does not have any more V. tach
--- NOTE | 2018-09-18 17:16 | ECHRPT ---
Indication: Coronary Atherosclerosis CONCLUSIONS Normal left ventricular size. Wall thickness is normal. The left ventricular systolic function is moderately to severely reduced with an estimated ejection fraction of 30%. Apical akinesis. The left atrial size is [id number] dilated. The right atrial size is moderately dilated. Aortic valve sclerosis is present. There is moderate tricuspid regurgitation. The estimated pulmonary arterial pressure is 69 mmHg. There is a small pericardial effusion present. BP: / HR: Rhythm: MEASUREMENTS (Male / Female) Normal Values Technical Quality:Technically difficult study 2D ECHO LV Diastolic Diameter PLAX 5.5 cm 4.2 - 5.9 / 3.9 - 5.3 cm LV Systolic Diameter PLAX 4.8 cm IVS Diastolic Thickness 1.1 cm 0.6 - 1.0 / 0.6 - 0.9 cm LVPW Diastolic Thickness 1.0 cm 0.6 - 1.0 / 0.6 - 0.9 cm LV Relative Wall Thickness 0.4 RV Internal Dim ED PLAX 4.9 cm LVOT Diameter 2.0 cm Aortic Root Diameter 3.6 cm LA Systolic Diameter LX 4.6 cm 3.0 - 4.0 / 2.7 - 3.8 cm M-MODE AV Cusp Separation MM 2.0 cm DOPPLER AV Peak Velocity 154.0 cm/s AV Peak Gradient 9.5 mmHg LVOT Peak Velocity 106.0 cm/s LVOT Peak Gradient 4.5 mmHg AV Area Cont Eq pk 2.2 cm Mitral E Point Velocity 106.0 cm/s Mitral A Point Velocity 72.1 cm/s Mitral E to A Ratio 1.5 LV E' Lateral Velocity 5.1 cm/s Mitral E to LV E' Lateral Ratio 20.6 LV E' Septal Velocity 6.7 cm/s Mitral E to LV E' Septal Ratio 15.9 TR Peak Velocity 368.0 cm/s TR Peak Gradient 54.2 mmHg Right Atrial Pressure 15.0 mmHg Pulmonary Artery Systolic Pressu 69.2 mmHg Right Ventricular Systolic Press 69.2 mmHg PV Peak Velocity 141.0 cm/s PV Peak Gradient 8.0 mmHg FINDINGS LEFT VENTRICLE Normal left ventricular size. Wall thickness is normal. The left ventricular systolic function is moderately to severely reduced with an estimated ejection fraction of 30%. Apical akinesis. RIGHT VENTRICLE Normal right ventricular size and systolic function. LEFT ATRIUM The left atrial size is [id number] dilated. RIGHT ATRIUM The right atrial size is moderately dilated. ATRIAL SEPTUM Normal atrial septal thickness without atrial level shunting by limited color doppler interrogation. AORTA The aortic root and proximal ascending aorta are normal in size on limited imaging. MITRAL VALVE Structurally normal mitral valve. No mitral valve stenosis or regurgitation. AORTIC VALVE Trileaflet aortic valve. Aortic valve sclerosis is present. TRICUSPID VALVE There is moderate tricuspid regurgitation. The estimated pulmonary arterial pressure is 69 mmHg. PULMONARY VALVE No pulmonary valve regurgitation or stenosis. VESSELS The inferior vena cava was not well visualized. PERICARDIUM There is a small pericardial effusion present. Dorinda Downing MD, FACC (Electronically Signed) Final Date:18 September 2018 17:14
[2018-09-18] MEDS: Amiodarone 200 MG Tablet PO SCH (20:16)
[2018-09-19] MEDS: Heparin - SQ 10,000 UNITS/ML Vial SQ SCH ×3 (03:08→20:21)
[2018-09-19 06:32] LABS: Hematocrit 25.7 % (39.0-51.0); Hemoglobin 8.1 gm/dL (13.0-17.0); Mean Corpuscular HGB Conc 31.5 % (32.0-36.0); Mean Corpuscular Hemoglobin 30.6 pg (27.0-34.0); Mean Corpuscular Volume 97.2 fL (80.0-100.0); Mean Platelet Volume 8.3 fL (7.0-11.0); Platelet Count 53 th/mm3 (150-450); Red Blood Count 2.64 mil/mm3 (4.50-5.90); Red Cell Distribution Width 18.9 % (11.6-17.2); White Blood Count 4.8 th/mm3 (4.0-11.0)
[2018-09-19 07:08] LABS: Calcium 8.1 mg/dL (8.5-10.1); Carbon Dioxide 31.2 meq/L (21.0-32.0); Potassium 3.9 meq/L (3.5-5.1)
[2018-09-19] MEDS: Carvedilol 12.5 MG Tablet PO SCH ×2 (09:35→20:21)
[2018-09-19] MEDS: Amiodarone 200 MG Tablet PO SCH ×2 (09:35→20:20)
[2018-09-19] MEDS: Pantoprazole Sodium 20 MG DR Tablet PO SCH (09:35)
--- NOTE | 2018-09-19 10:54 | P.PNIM ---
Subjective Interval history: Patient says that left arm edema worse than yesterday. Still with bilateral lower extremity edema. Denies any chest pain. Reports shortness of breath is stable from yesterday. Physical Exam Vital signs: Vital Signs 09/18/18 10:59 09/18/18 11:00 09/18/18 12:00 Temperature 98.2 F Pulse Rate 67 76 Respiratory Rate 18 18 Blood Pressure 162/70 H Pulse Oximetry 98 09/18/18 13:00 09/18/18 14:00 09/18/18 15:00 Temperature Pulse Rate 68 80 73 Respiratory Rate Blood Pressure Pulse Oximetry 09/18/18 16:00 09/18/18 17:00 09/18/18 18:00 Temperature Pulse Rate 78 190 H 87 Respiratory Rate Blood Pressure Pulse Oximetry 09/18/18 19:00 09/18/18 20:00 09/18/18 21:00 Temperature 98.9 F Pulse Rate 83 83 77 Respiratory Rate 18 Blood Pressure 175/73 H Pulse Oximetry 100 100 09/18/18 22:00 09/18/18 23:00 09/19/18 00:00 Temperature 97.9 F Pulse Rate 80 73 82 Respiratory Rate 22 Blood Pressure 159/68 H Pulse Oximetry 96 09/19/18 01:00 09/19/18 02:00 09/19/18 03:00 Temperature 97.8 F Pulse Rate 86 77 66 Respiratory Rate 18 Blood Pressure 170/69 H Pulse Oximetry 94 L 09/19/18 04:00 09/19/18 05:00 09/19/18 06:00 Temperature Pulse Rate 66 68 68 Respiratory Rate Blood Pressure Pulse Oximetry 09/19/18 07:00 09/19/18 08:41 Temperature 98.0 F Pulse Rate 70 70 Respiratory Rate 18 18 Blood Pressure 144/49 H Pulse Oximetry 100 92 L Intake & Output 09/18/18 09/19/18 09/19/18 18:59 06:59 18:59 Intake Total 500 / 500 250 / 250 Output Total 3000 / 3000 Balance -2500 / -2500 250 / 250 Weight 67.3 kg Intake: Oral 500 / 500 250 / 250 Output: Hemodialysis Amount 3000 / 3000 Other: Date of Last Bowel Movement 09/15/18 09/15/18 09/15/18 # Bowel Movements 0 Narrative: GENERAL: Patient sitting up on edge of bed. Appears comfortable. SKIN: Warm and dry. HEAD: Normocephalic. EYES: No scleral icterus. No injection or drainage. NECK: Supple, trachea midline. No JVD or lymphadenopathy. CARDIOVASCULAR: Regular rate and rhythm without murmurs, gallops, or rubs. RESPIRATORY: Breath sounds equal bilaterally. No accessory muscle use. GASTROINTESTINAL: Abdomen soft, non-tender, nondistended. MUSCULOSKELETAL: Ischemic ulcers on toes of right foot. AV fistula on left arm. Marked edema of the left arm, as well as bilateral legs. Peripheral perfusion intact. BACK: Nontender without obvious deformity. No CVA tenderness. Results - Labs CBC & Chem 7: 09/19/18 06:12 09/19/18 06:12 Laboratory Results - last 24 hr 09/19/18 09/19/18 06:12 06:12 WBC 4.8 RBC 2.64 L Hgb 8.1 L Hct 25.7 L MCV 97.2 MCH 30.6 MCHC 31.5 L RDW 18.9 H Plt Count 53 L MPV 8.3 Sodium 138 Potassium 3.9 D Chloride 99 Carbon Dioxide 31.2 Anion Gap 8 BUN 30 H Creatinine 5.90 H Estimated GFR 10 L Random Glucose 113 H Calcium 8.1 L Assessment and Plan - Plan 67-year-old male admitted for AV graft revision, patient had nonsustained V. tach during hemodialysis. 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 = 09/19. Patient reports edema and swelling in the left arm over the past day. Have discussed with nursing who will contact vascular surgery. //Nonsustained V. tach: - Cardiology following. Patient was not on his regular home dose of Coreg. This has been restarted. - Continue to monitor on telemetry. Echocardiogram per cardiology. = 09/19. Echocardiogram from 09/16 with ejection fraction of 30%, apical akinesis. Appreciate cardiology assistance. Follow-up recommendations. //End-stage renal disease on hemodialysis: - Nephrology following. = 09/19. Still with marked edema. Will need continued dialysis //Right foot ischemic eschars: -Podiatry following. Currently being treated with Santyl with plan for outpatient follow-up to consider debridement. -Pain control = Follow-up with podiatry as outpatient. //Hypertension: - Blood pressure currently acceptable. On Coreg as above. Normally takes amlodipine at home. Continue to monitor and restart as indicated. COPD: Resume home dose inhalers. GI prophylaxis: Stool softener PRN constipation. DVT PPx: Heparin sq Discharge Planning: Would probably benefit from home health. However patient is likely to refuse. Plan to DC when cleared by Cardiology, vasc surgery. Continue to monitor on telemetry to ensure he does not have any more V. tach
--- NOTE | 2018-09-19 12:33 | P.PNNP ---
Subjective Interval history: no acute complaints, ongoing swelling at arm Physical Exam Vital signs: Vital Signs 09/18/18 13:00 09/18/18 14:00 09/18/18 15:00 Temperature Pulse Rate 68 80 73 Respiratory Rate Blood Pressure Pulse Oximetry 09/18/18 16:00 09/18/18 17:00 09/18/18 18:00 Temperature Pulse Rate 78 190 H 87 Respiratory Rate Blood Pressure Pulse Oximetry 09/18/18 19:00 09/18/18 20:00 09/18/18 21:00 Temperature 98.9 F Pulse Rate 83 83 77 Respiratory Rate 18 Blood Pressure 175/73 H Pulse Oximetry 100 100 09/18/18 22:00 09/18/18 23:00 09/19/18 00:00 Temperature 97.9 F Pulse Rate 80 73 82 Respiratory Rate 22 Blood Pressure 159/68 H Pulse Oximetry 96 09/19/18 01:00 09/19/18 02:00 09/19/18 03:00 Temperature 97.8 F Pulse Rate 86 77 66 Respiratory Rate 18 Blood Pressure 170/69 H Pulse Oximetry 94 L 09/19/18 04:00 09/19/18 05:00 09/19/18 06:00 Temperature Pulse Rate 66 68 68 Respiratory Rate Blood Pressure Pulse Oximetry 09/19/18 07:00 09/19/18 08:41 Temperature 98.0 F Pulse Rate 70 70 Respiratory Rate 18 18 Blood Pressure 144/49 H Pulse Oximetry 100 92 L Intake & Output 09/18/18 09/19/18 09/19/18 18:59 06:59 18:59 Intake Total 500 / 500 250 / 250 Output Total 3000 / 3000 Balance -2500 / -2500 250 / 250 Weight 67.3 kg Intake: Oral 500 / 500 250 / 250 Output: Hemodialysis Amount 3000 / 3000 Other: Date of Last Bowel Movement 09/15/18 09/15/18 09/15/18 # Bowel Movements 0 - Constitutional no acute distress - Routine HEENT Exam Head: Present: normocephalic Eye: Present: EOMI ENT: Present: mucous membranes moist - Routine Neck Exam Present: supple - Routine Respiratory Exam Present: CTA bilaterally - Routine Cardiovascular Exam Present: RRR - Routine Abdominal Exam Present: soft - Routine Skin Exam Present: intact - Routine Neurological Exam Present: alert, oriented X3 - Detailed Neurological Exam: Coma Scale Eye Opening: Spontaneous - Routine Psychiatric Exam Present: normal affect Assessment and Plan - Assessment (1) ESRD (end stage renal disease) on dialysis Code(s): N18.6 - End stage renal disease; Z99.2 - Dependence on renal dialysis Status: Acute Plan: Dialysis will be continued MWF. HD done Friday, next HD Friday Monitor fluid and electrolytes. Avoid Gadolinium. New AV access with good thrill. Hematoma near incision site with swelling. No upper arm or shoulder swelling suggestive of central stenosis. Continue to monitor and follow with vascular. Patient has a right IJ tunneled catheter in place. (2) Anemia Code(s): D64.9 - Anemia, unspecified Status: Acute Qualifiers: Anemia type: unspecified type Qualified Code(s): D64.9 - Anemia, unspecified Plan: Epogen with dialysis. (3) COPD (chronic obstructive pulmonary disease) Code(s): J44.9 - Chronic obstructive pulmonary disease, unspecified Status: Acute Plan: bronchodilators. Monitor. (4) Gangrene of right foot Code(s): I96 - Gangrene, not elsewhere classified Status: Acute Plan: management per primary team. (5) Nonsustained ventricular tachycardia Code(s): I47.2 - Ventricular tachycardia Status: Acute Plan: Seen by cardiology. Carvedilol started.
[2018-09-19] MEDS: Budesonide-Formoterol 160/4.5 MCG 6 GM Inhaler INH SCH ×2 (12:54→20:21)
[2018-09-19] MEDS: Collagenase Oint 30 GM Tube TOPICAL SCH (12:54)
--- NOTE | 2018-09-19 13:41 | P.PNCA ---
Subjective Interval history: Patient denies any CP, pressure, palpitations, dizziness or SOB. Patient states that he is feeling pretty good and wants to know when he can go home. Medications and Allergies Allergies Allergy/AdvReac Type Severity Reaction Status Date / Time topiramate [From Topamax] Allergy Unknown unknown Verified 08/31/18 11:31 Home Medications Medication Instructions Recorded Confirmed Type albuterol sulfate 1 puff INHALATION Q4-6H PRN 07/09/18 09/15/18 History amlodipine 10 mg PO DAILY 07/09/18 09/15/18 History aspirin 81 mg PO DAILY 07/09/18 09/15/18 History atorvastatin [Lipitor] 20 mg PO DAILY 07/09/18 09/15/18 History budesonide-formoterol [Symbicort] 2 puff INHALATION BID 07/09/18 09/15/18 History carvedilol [Coreg] 25 mg PO BID 07/09/18 09/15/18 History gabapentin 300 mg PO DAILY 07/09/18 09/15/18 History loratadine [Claritin] 20 mg PO DAILY 07/09/18 09/15/18 History omeprazole 20 mg PO DAILY 07/09/18 09/15/18 History sennosides-docusate sodium [Senna 1 tab PO BID 07/09/18 09/15/18 History Plus] bupropion HCl [Wellbutrin XL] 150 mg PO QAM 08/31/18 09/15/18 History calcium acetate 667 mg PO TID 08/31/18 09/15/18 History guaifenesin 600 mg PO Q12H 08/31/18 09/15/18 History sevelamer carbonate [Renvela] 800 mg PO DAILY 08/31/18 09/15/18 History alprazolam [Xanax] 0.25 mg PO DAILY 09/15/18 09/15/18 History Active Medications: Active Medications Acetaminophen (Tylenol) 650 mg PO UNSCH X1 PRN PRN Reason: SEE LABEL COMMENTS Albuterol (Albuterol Neb (Prn)) 2.5 mg NEB Q4HR NEB PRN PRN Reason: SHORTNESS OF BREATH Last Admin: 09/19/18 08:38 Dose: 2.5 mg Albuterol (Ventolin Hfa Inh) 1 puff INH Q4HR NEB PRN PRN Reason: Shortness Of Breath Alprazolam (Xanax) 0.25 mg PO DAILY PRN PRN Reason: ANXIETY Last Admin: 09/18/18 14:41 Dose: 0.25 mg Amiodarone HCl (Cordarone) 400 mg PO BID [facility] Last Admin: 09/19/18 09:35 Dose: 400 mg Aspirin (Ecotrin) 81 mg PO DAILY [facility] Last Admin: 09/19/18 09:35 Dose: 81 mg Atorvastatin Calcium (Lipitor) 20 mg PO DAILY [facility] Last Admin: 09/19/18 09:35 Dose: 20 mg Budesonide/Formoterol Fumarate (Symbicort 160/4.5 Mcg Inh) 2 puff INH BID [facility] Last Admin: 09/19/18 12:54 Dose: 2 puff Carvedilol (Coreg) 25 mg PO BID [facility] Last Admin: 09/19/18 09:35 Dose: 25 mg Clonidine HCl (Catapres) 0.1 mg PO UNSCH X1 PRN PRN Reason: SEE LABEL COMMENTS Collagenase (Santyl Oint) 1 applicatio TOPICAL DAILY [facility] Last Admin: 09/19/18 12:54 Dose: 1 applicatio Diphenhydramine HCl (Benadryl) 25 mg PO UNSCH PRN PRN Reason: SEE LABEL COMMENTS Epoetin Joshua (Epogen Inj) 10,000 unit IV.PUSH UNSCH PRN PRN Reason: SEE LABEL COMMENTS Last Admin: 09/18/18 16:04 Dose: 10,000 unit Gelatin (Gelfoam 12 Mm/7 Mm Topical) 1 foam TOPICAL UNSCH PRN PRN Reason: help stop bleeding from site Gentamicin Sulfate (Gentamicin Inj) 20 mg OTHER WITH DIALYSIS PRN PRN Reason: Dwell Gentamycin Lock Last Admin: 09/18/18 16:06 Dose: 20 mg Heparin Sodium (Porcine) (Heparin Inj) 5,000 units SQ Q8H [facility] Last Admin: 09/19/18 13:15 Dose: 5,000 units Heparin Sodium (Porcine) (Heparin Inj) 0 units OTHER WITH DIALYSIS PRN PRN Reason: Dwell Heparin to Fill Catheter Last Admin: 09/18/18 16:06 Dose: 1,000 units Heparin Sodium (Porcine) (Heparin Inj) 8,000 units OTHER WITH DIALYSIS PRN PRN Reason: for machine prime Hydromorphone HCl (Dilaudid) 2 mg PO Q4H PRN PRN Reason: PAIN SCALE 6 TO 10 Last Admin: 09/19/18 12:58 Dose: 2 mg Albumin Human (Flexbumin 25% Inj) 100 mls @ 60 mls/hr IV.SIG WITH DIALYSIS PRN PRN Reason: hypotension / volume replace Sodium Chloride (Ns Inj) 1,000 mls @ 0 mls/hr OTHER .Q0M PRN PRN Reason: for prime and rinse back Sodium Chloride (Ns Inj) 1,000 mls @ 200 mls/hr OTHER .Q5H PRN PRN Reason: for dialyzer flush PRN Sodium Chloride (Ns Inj) 1,000 mls @ 0 mls/hr IV.CONT .Q0M PRN PRN Reason: hypotension / volume replace Mannitol (Mannitol Inj) 12.5 gm IV.PUSH UNSCH PRN PRN Reason: hypotension / volume replace Morphine Sulfate (Morphine Inj) 2 mg IV.PUSH Q1H PRN PRN Reason: BREAKTHROUGH PAIN Last Admin: 09/16/18 02:28 Dose: 2 mg Nitroglycerin (Nitrostat Sl) 0.4 mg SL Q5M PRN PRN Reason: CHEST PAIN Ondansetron HCl (Zofran Inj) 4 mg IV.PUSH UNSCH X1 PRN PRN Reason: WITH DIALYSIS Oxycodone HCl (Roxicodone) 5 mg PO Q4H PRN PRN Reason: PAIN SCALE 1 TO 5 Last Admin: 09/19/18 09:36 Dose: 5 mg Pantoprazole Sodium (Protonix) 20 mg PO DAILY [facility] Last Admin: 09/19/18 09:35 Dose: 20 mg Sodium Chloride (Ns Flush) 5 ml IV.FLUSH UNSCH PRN PRN Reason: flush each lumen during HD Physical Exam Vital signs: Vital Signs 09/18/18 14:00 09/18/18 15:00 09/18/18 16:00 Temperature Pulse Rate 80 73 78 Respiratory Rate Blood Pressure Pulse Oximetry 09/18/18 17:00 09/18/18 18:00 09/18/18 19:00 Temperature 98.9 F Pulse Rate 190 H 87 83 Respiratory Rate 18 Blood Pressure 175/73 H Pulse Oximetry 100 09/18/18 20:00 09/18/18 21:00 09/18/18 22:00 Temperature Pulse Rate 83 77 80 Respiratory Rate Blood Pressure Pulse Oximetry 100 09/18/18 23:00 09/19/18 00:00 09/19/18 01:00 Temperature 97.9 F Pulse Rate 73 82 86 Respiratory Rate 22 Blood Pressure 159/68 H Pulse Oximetry 96 09/19/18 02:00 09/19/18 03:00 09/19/18 04:00 Temperature 97.8 F Pulse Rate 77 66 66 Respiratory Rate 18 Blood Pressure 170/69 H Pulse Oximetry 94 L 09/19/18 05:00 09/19/18 06:00 09/19/18 07:00 Temperature 98.0 F Pulse Rate 68 68 63 Respiratory Rate 18 Blood Pressure 144/49 H Pulse Oximetry 100 09/19/18 08:41 09/19/18 11:00 Temperature 97.6 F Pulse Rate 70 65 Respiratory Rate 18 18 Blood Pressure 130/60 Pulse Oximetry 92 L 100 Intake & Output 09/18/18 09/19/18 09/19/18 18:59 06:59 18:59 Intake Total 500 / 500 250 / 250 Output Total 3000 / 3000 Balance -2500 / -2500 250 / 250 Weight 67.3 kg Intake: Oral 500 / 500 250 / 250 Output: Hemodialysis Amount 3000 / 3000 Other: Date of Last Bowel Movement 09/15/18 09/15/18 09/15/18 # Bowel Movements 0 - Constitutional no acute distress - Routine HEENT Exam Head: Present: normocephalic Eye: Present: PERRL ENT: Present: mucous membranes moist - Routine Neck Exam Present: full ROM - Routine Respiratory Exam Present: CTA bilaterally - Routine Cardiovascular Exam Present: S1, S2. Absent: gallop, rubs - Routine Abdominal Exam Present: normoactive bowel sounds - Routine Extremities Exam Present: edema, full ROM, tenderness, AV fistula. Absent: cyanosis, clubbing - Routine Skin Exam Present: dry, wounds, cracked, ecchymosis Comments: Lower extremities. - Routine Neurological Exam Present: oriented X3 - Detailed Neurological Exam: Coma Scale Eye Opening: Spontaneous Verbal Response: Oriented Motor Response: Obey commands [place] Coma Scale Total: 15 - Routine Psychiatric Exam Present: normal affect Results 09/19/18 06:12 09/19/18 06:12 CBC 09/18/18 09/19/18 Range/Units 06:59 06:12 WBC 5.5 4.8 (4.0-11.0) th/mm3 RBC 2.89 L 2.64 L (4.50-5.90) mil/mm3 Hgb 8.6 L 8.1 L (13.0-17.0) gm/dL Hct 28.7 L 25.7 L (39.0-51.0) % Plt Count 59 L 53 L (150-450) th/mm3 Comprehensive Metabolic Panel 09/18/18 09/19/18 Range/Units 06:59 06:12 Sodium 134 L 138 (136-145) meq/L Potassium 4.9 3.9 D (3.5-5.1) meq/L Chloride 96 L 99 (98-107) meq/L Carbon Dioxide 27.3 31.2 (21.0-32.0) meq/L BUN 38 H 30 H (7-18) mg/dL Creatinine 7.45 H 5.90 H (0.60-1.30) mg/dL Calcium 8.2 L 8.1 L (8.5-10.1) mg/dL Intake and Output 09/18/18 09/19/18 09/19/18 22:59 06:59 14:59 Intake Total 500 / 500 250 / 250 Output Total 3000 / 3000 Balance -2500 / -2500 250 / 250 Intake: Oral 500 / 500 250 / 250 Output: Hemodialysis Amount 3000 / 3000 Other: Date of Last Bowel Movement 09/15/18 09/15/18 09/15/18 # Bowel Movements 0 Weight 67.3 kg Assessment and Plan - Assessment (1) Nonsustained ventricular tachycardia Code(s): I47.2 - Ventricular tachycardia Status: Acute (2) Coronary artery disease Code(s): I25.10 - Atherosclerotic heart disease of [place] coronary artery without angina pectoris Status: Acute (3) Pneumonia Code(s): J18.9 - Pneumonia, unspecified organism Status: Acute (4) ESRD (end stage renal disease) on dialysis Code(s): N18.6 - End stage renal disease; Z99.2 - Dependence on renal dialysis Status: Acute (5) Gangrene of right foot Code(s): I96 - Gangrene, not elsewhere classified Status: Acute (6) Gangrene of toe of right foot Code(s): I96 - Gangrene, not elsewhere classified Status: Acute (7) Pseudoaneurysm of distal brachial artery Code(s): I72.1 - Aneurysm of artery of upper extremity Status: Acute (8) COPD (chronic obstructive pulmonary disease) Code(s): J44.9 - Chronic obstructive pulmonary disease, unspecified Status: Acute - Plan Patient had a run of V-tach, he became symptomatic in dialysis yest. We started Amiodarone 400mg BID. We will continue to monitor the patient. Patient is scheduled for dialysis on Friday, will monitor closely for V-tach. Currently in SR on monitor. We will continue with the beta jeremie. There is no indication for ICD placement at this time, will continue to monitor. Podiatry evaluation in progress for necrotic toes. We will continue to follow patient during his hospitalization. He will follow- up with [place] [facility] after discharge. Patient was seen and evaluated by Dr. Downing who participated in care, management and decision-making. - Attending Attestation Patient seen and examined. I reviewed and agree with the evaluation and plan as presented. Continue amio loading. Continue close monitoring. (3) Pneumonia Qualifiers: Pneumonia type: due to unspecified organism Laterality: right Lung location : lower lobe of lung Qualified Code(s): J18.1 - Lobar pneumonia, unspecified organism
[2018-09-20] MEDS: Heparin - SQ 10,000 UNITS/ML Vial SQ SCH ×3 (09:01→20:23)
[2018-09-20] MEDS: Pantoprazole Sodium 20 MG DR Tablet PO SCH (09:03)
[2018-09-20] MEDS: Amiodarone 200 MG Tablet PO SCH ×2 (09:03→20:21)
[2018-09-20] MEDS: Collagenase Oint 30 GM Tube TOPICAL SCH (09:04)
[2018-09-20] MEDS: Carvedilol 12.5 MG Tablet PO SCH ×2 (09:04→20:21)
[2018-09-20] MEDS: Budesonide-Formoterol 160/4.5 MCG 6 GM Inhaler INH SCH ×2 (09:04→20:26)
--- NOTE | 2018-09-20 09:23 | P.PNNP ---
Subjective Interval history: No acute complaints Physical Exam Vital signs: Vital Signs 09/19/18 10:00 09/19/18 11:00 09/19/18 12:00 Temperature 97.6 F Pulse Rate 66 65 64 Respiratory Rate 18 Blood Pressure 130/60 Pulse Oximetry 100 09/19/18 13:00 09/19/18 14:00 09/19/18 15:00 Temperature 98.0 F Pulse Rate 62 62 61 Respiratory Rate 16 Blood Pressure 145/64 H Pulse Oximetry 99 09/19/18 16:00 09/19/18 17:00 09/19/18 18:00 Temperature Pulse Rate 58 L 62 64 Respiratory Rate Blood Pressure Pulse Oximetry 09/19/18 19:00 09/19/18 20:00 09/19/18 21:00 Temperature 97.6 F Pulse Rate 66 62 62 Respiratory Rate 14 Blood Pressure 126/65 Pulse Oximetry 98 98 09/19/18 22:00 09/19/18 23:00 09/20/18 00:00 Temperature 98.0 F Pulse Rate 62 59 L 59 L Respiratory Rate 15 Blood Pressure 133/60 Pulse Oximetry 99 09/20/18 01:00 09/20/18 02:00 09/20/18 03:00 Temperature 98.2 F Pulse Rate 63 63 60 Respiratory Rate 16 Blood Pressure 129/67 Pulse Oximetry 100 09/20/18 04:00 09/20/18 05:00 09/20/18 07:00 Temperature Pulse Rate 63 63 61 Respiratory Rate Blood Pressure Pulse Oximetry 09/20/18 07:38 09/20/18 08:48 Temperature Pulse Rate 64 Respiratory Rate 16 Blood Pressure Pulse Oximetry 96 Intake & Output 09/19/18 09/20/18 09/20/18 18:59 06:59 18:59 Intake Total 1020 / 1020 0 / 0 Output Total 0 / 0 Balance 1020 / 1020 0 / 0 Weight 67.4 kg Intake: Oral 1020 / 1020 0 / 0 Output: Urine 0 / 0 Other: Date of Last Bowel Movement 09/15/18 09/15/18 - Constitutional no acute distress - Routine HEENT Exam Head: Present: normocephalic Eye: Present: EOMI ENT: Present: mucous membranes moist - Routine Neck Exam Present: supple - Routine Respiratory Exam Present: CTA bilaterally - Routine Cardiovascular Exam Present: RRR - Routine Abdominal Exam Present: soft - Routine Skin Exam Present: intact - Routine Neurological Exam Present: alert, oriented X3 - Detailed Neurological Exam: Coma Scale Eye Opening: Spontaneous - Routine Psychiatric Exam Present: normal affect Assessment and Plan - Assessment (1) ESRD (end stage renal disease) on dialysis Code(s): N18.6 - End stage renal disease; Z99.2 - Dependence on renal dialysis Status: Acute Plan: Dialysis will be continued MWF. HD done Friday, next HD Friday Monitor fluid and electrolytes. Avoid Gadolinium. New AV access with good thrill. Hematoma near incision site with swelling. No upper arm or shoulder swelling suggestive of central stenosis. Continue to monitor and follow with vascular. Patient has a right IJ tunneled catheter in place. (2) Anemia Code(s): D64.9 - Anemia, unspecified Status: Acute Qualifiers: Anemia type: unspecified type Qualified Code(s): D64.9 - Anemia, unspecified Plan: Epogen with dialysis. (3) COPD (chronic obstructive pulmonary disease) Code(s): J44.9 - Chronic obstructive pulmonary disease, unspecified Status: Acute Plan: bronchodilators. Monitor. (4) Gangrene of right foot Code(s): I96 - Gangrene, not elsewhere classified Status: Acute Plan: management per primary team. (5) Nonsustained ventricular tachycardia Code(s): I47.2 - Ventricular tachycardia Status: Acute Plan: Seen by cardiology. Carvedilol started. monitor with dialysis Friday
--- NOTE | 2018-09-20 10:53 | P.PNIM ---
Subjective Interval history: Patient says he is feeling all right. Denies any chest pain or shortness of breath currently. Denies any nausea or vomiting. Physical Exam Vital signs: Vital Signs 09/19/18 11:00 09/19/18 12:00 09/19/18 13:00 Temperature 97.6 F Pulse Rate 65 64 62 Respiratory Rate 18 Blood Pressure 130/60 Pulse Oximetry 100 09/19/18 14:00 09/19/18 15:00 09/19/18 16:00 Temperature 98.0 F Pulse Rate 62 61 58 L Respiratory Rate 16 Blood Pressure 145/64 H Pulse Oximetry 99 09/19/18 17:00 09/19/18 18:00 09/19/18 19:00 Temperature 97.6 F Pulse Rate 62 64 66 Respiratory Rate 14 Blood Pressure 126/65 Pulse Oximetry 98 09/19/18 20:00 09/19/18 21:00 09/19/18 22:00 Temperature Pulse Rate 62 62 62 Respiratory Rate Blood Pressure Pulse Oximetry 98 09/19/18 23:00 09/20/18 00:00 09/20/18 01:00 Temperature 98.0 F Pulse Rate 59 L 59 L 63 Respiratory Rate 15 Blood Pressure 133/60 Pulse Oximetry 99 09/20/18 02:00 09/20/18 03:00 09/20/18 04:00 Temperature 98.2 F Pulse Rate 63 60 63 Respiratory Rate 16 Blood Pressure 129/67 Pulse Oximetry 100 09/20/18 05:00 09/20/18 07:00 09/20/18 07:38 Temperature 97.7 F Pulse Rate 63 64 Respiratory Rate 16 Blood Pressure 148/69 H Pulse Oximetry 98 96 09/20/18 08:00 09/20/18 08:48 09/20/18 09:00 Temperature Pulse Rate 63 64 62 Respiratory Rate 16 Blood Pressure Pulse Oximetry 98 09/20/18 10:00 Temperature Pulse Rate 59 L Respiratory Rate Blood Pressure Pulse Oximetry Intake & Output 09/19/18 09/20/18 09/20/18 18:59 06:59 18:59 Intake Total 1020 / 1020 0 / 0 Output Total 0 / 0 Balance 1020 / 1020 0 / 0 Weight 67.4 kg Intake: Oral 1020 / 1020 0 / 0 Output: Urine 0 / 0 Other: Date of Last Bowel Movement 09/15/18 09/15/18 Narrative: GENERAL: Patient sitting up on edge of bed. Appears comfortable. SKIN: Warm and dry. HEAD: Normocephalic. EYES: No scleral icterus. No injection or drainage. NECK: Supple, trachea midline. No JVD or lymphadenopathy. CARDIOVASCULAR: Regular rate and rhythm without murmurs, gallops, or rubs. RESPIRATORY: Breath sounds equal bilaterally. No accessory muscle use. GASTROINTESTINAL: Abdomen soft, non-tender, nondistended. MUSCULOSKELETAL: Ischemic ulcers on toes of right foot. AV fistula on left arm. Marked edema of the left arm, as well as bilateral legs, slightly improved from yesterday.. Peripheral perfusion intact. BACK: Nontender without obvious deformity. No CVA tenderness. Results - Labs CBC & Chem 7: 09/19/18 06:12 09/19/18 06:12 Assessment and Plan - Plan 67-year-old male admitted for AV graft revision, patient had nonsustained V. tach during hemodialysis. 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 = 09/19. Patient reports edema and swelling in the left arm over the past day. Have discussed with nursing who will contact vascular surgery. = 09/20. Hematoma of left arm, however functioning AV fistula. //Nonsustained V. tach: - Cardiology following. Patient was not on his regular home dose of Coreg. This has been restarted. - Continue to monitor on telemetry. Echocardiogram per cardiology. = 09/19. Echocardiogram from 09/16 with ejection fraction of 30%, apical akinesis. Appreciate cardiology assistance. Follow-up recommendations. = 09/20. Patient with symptomatic V. tach in hemodialysis. Continue on amiodarone loading as per cardiology. Will monitor in dialysis on Friday. Appreciate cardiology assistance. //End-stage renal disease on hemodialysis: - Nephrology following. = 09/19. Still with marked edema. Will need continued dialysis //Right foot ischemic eschars: -Podiatry following. Currently being treated with Santyl with plan for outpatient follow-up to consider debridement. -Pain control = Continue wound care. Follow-up with podiatry as outpatient. //Hypertension: - Blood pressure currently acceptable. On Coreg as above. Normally takes amlodipine at home. Continue to monitor and restart as indicated. COPD: Resume home dose inhalers. GI prophylaxis: Stool softener PRN constipation. DVT PPx: Heparin sq Discharge Planning: Would probably benefit from home health. However patient is likely to refuse. Plan to DC when cleared by Cardiology, vasc surgery. Continue to monitor on telemetry to ensure he does not have any more V. tach
--- NOTE | 2018-09-20 11:57 | P.PNCA ---
Subjective Interval history: Patient denies any CP, pressure, palpitations or dizziness. Patient does complain of edema in the lower extremities. Medications and Allergies Allergies Allergy/AdvReac Type Severity Reaction Status Date / Time topiramate [From Topamax] Allergy Unknown unknown Verified 08/31/18 11:31 Home Medications Medication Instructions Recorded Confirmed Type albuterol sulfate 1 puff INHALATION Q4-6H PRN 07/09/18 09/15/18 History amlodipine 10 mg PO DAILY 07/09/18 09/15/18 History aspirin 81 mg PO DAILY 07/09/18 09/15/18 History atorvastatin [Lipitor] 20 mg PO DAILY 07/09/18 09/15/18 History budesonide-formoterol [Symbicort] 2 puff INHALATION BID 07/09/18 09/15/18 History carvedilol [Coreg] 25 mg PO BID 07/09/18 09/15/18 History gabapentin 300 mg PO DAILY 07/09/18 09/15/18 History loratadine [Claritin] 20 mg PO DAILY 07/09/18 09/15/18 History omeprazole 20 mg PO DAILY 07/09/18 09/15/18 History sennosides-docusate sodium [Senna 1 tab PO BID 07/09/18 09/15/18 History Plus] bupropion HCl [Wellbutrin XL] 150 mg PO QAM 08/31/18 09/15/18 History calcium acetate 667 mg PO TID 08/31/18 09/15/18 History guaifenesin 600 mg PO Q12H 08/31/18 09/15/18 History sevelamer carbonate [Renvela] 800 mg PO DAILY 08/31/18 09/15/18 History alprazolam [Xanax] 0.25 mg PO DAILY 09/15/18 09/15/18 History Active Medications: Active Medications Acetaminophen (Tylenol) 650 mg PO UNSCH X1 PRN PRN Reason: SEE LABEL COMMENTS Albuterol (Albuterol Neb (Prn)) 2.5 mg NEB Q4HR NEB PRN PRN Reason: SHORTNESS OF BREATH Last Admin: 09/20/18 08:48 Dose: 2.5 mg Albuterol (Ventolin Hfa Inh) 1 puff INH Q4HR NEB PRN PRN Reason: Shortness Of Breath Alprazolam (Xanax) 0.25 mg PO DAILY PRN PRN Reason: ANXIETY Last Admin: 09/18/18 14:41 Dose: 0.25 mg Amiodarone HCl (Cordarone) 400 mg PO BID [facility] Last Admin: 09/20/18 09:03 Dose: 400 mg Aspirin (Ecotrin) 81 mg PO DAILY [facility] Last Admin: 09/20/18 09:04 Dose: 81 mg Atorvastatin Calcium (Lipitor) 20 mg PO DAILY [facility] Last Admin: 09/20/18 09:05 Dose: 20 mg Budesonide/Formoterol Fumarate (Symbicort 160/4.5 Mcg Inh) 2 puff INH BID [facility] Last Admin: 09/20/18 09:04 Dose: 2 puff Carvedilol (Coreg) 25 mg PO BID [facility] Last Admin: 09/20/18 09:04 Dose: 25 mg Clonidine HCl (Catapres) 0.1 mg PO UNSCH X1 PRN PRN Reason: SEE LABEL COMMENTS Collagenase (Santyl Oint) 1 applicatio TOPICAL DAILY [facility] Last Admin: 09/20/18 09:04 Dose: 1 applicatio Diphenhydramine HCl (Benadryl) 25 mg PO UNSCH PRN PRN Reason: SEE LABEL COMMENTS Epoetin Joshua (Epogen Inj) 10,000 unit IV.PUSH UNSCH PRN PRN Reason: SEE LABEL COMMENTS Last Admin: 09/18/18 16:04 Dose: 10,000 unit Gelatin (Gelfoam 12 Mm/7 Mm Topical) 1 foam TOPICAL UNSCH PRN PRN Reason: help stop bleeding from site Gentamicin Sulfate (Gentamicin Inj) 20 mg OTHER WITH DIALYSIS PRN PRN Reason: Dwell Gentamycin Lock Last Admin: 09/18/18 16:06 Dose: 20 mg Heparin Sodium (Porcine) (Heparin Inj) 5,000 units SQ Q8H [facility] Last Admin: 09/20/18 11:48 Dose: 5,000 units Heparin Sodium (Porcine) (Heparin Inj) 0 units OTHER WITH DIALYSIS PRN PRN Reason: Dwell Heparin to Fill Catheter Last Admin: 09/18/18 16:06 Dose: 1,000 units Heparin Sodium (Porcine) (Heparin Inj) 8,000 units OTHER WITH DIALYSIS PRN PRN Reason: for machine prime Hydromorphone HCl (Dilaudid) 2 mg PO Q4H PRN PRN Reason: PAIN SCALE 6 TO 10 Last Admin: 09/20/18 09:02 Dose: 2 mg Albumin Human (Flexbumin 25% Inj) 100 mls @ 60 mls/hr IV.SIG WITH DIALYSIS PRN PRN Reason: hypotension / volume replace Sodium Chloride (Ns Inj) 1,000 mls @ 0 mls/hr OTHER .Q0M PRN PRN Reason: for prime and rinse back Sodium Chloride (Ns Inj) 1,000 mls @ 200 mls/hr OTHER .Q5H PRN PRN Reason: for dialyzer flush PRN Sodium Chloride (Ns Inj) 1,000 mls @ 0 mls/hr IV.CONT .Q0M PRN PRN Reason: hypotension / volume replace Mannitol (Mannitol Inj) 12.5 gm IV.PUSH UNSCH PRN PRN Reason: hypotension / volume replace Morphine Sulfate (Morphine Inj) 2 mg IV.PUSH Q1H PRN PRN Reason: BREAKTHROUGH PAIN Last Admin: 09/16/18 02:28 Dose: 2 mg Nitroglycerin (Nitrostat Sl) 0.4 mg SL Q5M PRN PRN Reason: CHEST PAIN Ondansetron HCl (Zofran Inj) 4 mg IV.PUSH UNSCH X1 PRN PRN Reason: WITH DIALYSIS Oxycodone HCl (Roxicodone) 5 mg PO Q4H PRN PRN Reason: PAIN SCALE 1 TO 5 Last Admin: 09/19/18 22:53 Dose: 5 mg Pantoprazole Sodium (Protonix) 20 mg PO DAILY [facility] Last Admin: 09/20/18 09:03 Dose: 20 mg Sodium Chloride (Ns Flush) 5 ml IV.FLUSH UNSCH PRN PRN Reason: flush each lumen during HD Physical Exam Vital signs: Vital Signs 09/19/18 12:00 09/19/18 13:00 09/19/18 14:00 Temperature Pulse Rate 64 62 62 Respiratory Rate Blood Pressure Pulse Oximetry 09/19/18 15:00 09/19/18 16:00 09/19/18 17:00 Temperature 98.0 F Pulse Rate 61 58 L 62 Respiratory Rate 16 Blood Pressure 145/64 H Pulse Oximetry 99 09/19/18 18:00 09/19/18 19:00 09/19/18 20:00 Temperature 97.6 F Pulse Rate 64 66 62 Respiratory Rate 14 Blood Pressure 126/65 Pulse Oximetry 98 98 09/19/18 21:00 09/19/18 22:00 09/19/18 23:00 Temperature 98.0 F Pulse Rate 62 62 59 L Respiratory Rate 15 Blood Pressure 133/60 Pulse Oximetry 99 09/20/18 00:00 09/20/18 01:00 09/20/18 02:00 Temperature Pulse Rate 59 L 63 63 Respiratory Rate Blood Pressure Pulse Oximetry 09/20/18 03:00 09/20/18 04:00 09/20/18 05:00 Temperature 98.2 F Pulse Rate 60 63 63 Respiratory Rate 16 Blood Pressure 129/67 Pulse Oximetry 100 09/20/18 07:00 09/20/18 07:38 09/20/18 08:00 Temperature 97.7 F Pulse Rate 64 63 Respiratory Rate 16 Blood Pressure 148/69 H Pulse Oximetry 98 96 98 09/20/18 08:48 09/20/18 09:00 09/20/18 10:00 Temperature Pulse Rate 64 62 59 L Respiratory Rate 16 Blood Pressure Pulse Oximetry 09/20/18 11:00 Temperature 97.7 F Pulse Rate 62 Respiratory Rate 18 Blood Pressure 146/67 H Pulse Oximetry 98 Intake & Output 09/19/18 09/20/18 09/20/18 18:59 06:59 18:59 Intake Total 1020 / 1020 0 / 0 Output Total 0 / 0 Balance 1020 / 1020 0 / 0 Weight 67.4 kg Intake: Oral 1020 / 1020 0 / 0 Output: Urine 0 / 0 Other: Date of Last Bowel Movement 09/15/18 09/15/18 - Constitutional no acute distress - Routine HEENT Exam Head: Present: normocephalic Eye: Present: PERRL ENT: Present: mucous membranes moist - Routine Neck Exam Present: supple - Routine Respiratory Exam Present: crackles Comments: Fine crackles bilateral lower lobes. - Routine Cardiovascular Exam Present: S1, S2. Absent: murmur, gallop, rubs - Routine Abdominal Exam Present: normoactive bowel sounds - Routine Extremities Exam Present: edema, full ROM. Absent: cyanosis, clubbing Comments: wounds on the feet bilateral. - Routine Skin Exam Present: wounds - Routine Neurological Exam Present: oriented X3 - Detailed Neurological Exam: Coma Scale Eye Opening: Spontaneous Verbal Response: Oriented Motor Response: Obey commands [place] Coma Scale Total: 15 - Routine Psychiatric Exam Present: normal affect Results 09/19/18 06:12 09/19/18 06:12 CBC 09/19/18 Range/Units 06:12 WBC 4.8 (4.0-11.0) th/mm3 RBC 2.64 L (4.50-5.90) mil/mm3 Hgb 8.1 L (13.0-17.0) gm/dL Hct 25.7 L (39.0-51.0) % Plt Count 53 L (150-450) th/mm3 Comprehensive Metabolic Panel 09/19/18 Range/Units 06:12 Sodium 138 (136-145) meq/L Potassium 3.9 D (3.5-5.1) meq/L Chloride 99 (98-107) meq/L Carbon Dioxide 31.2 (21.0-32.0) meq/L BUN 30 H (7-18) mg/dL Creatinine 5.90 H (0.60-1.30) mg/dL Calcium 8.1 L (8.5-10.1) mg/dL Intake and Output 09/19/18 09/20/18 09/20/18 22:59 06:59 14:59 Intake Total 1020 / 1020 0 / 0 Output Total 0 / 0 Balance 1020 / 1020 0 / 0 Intake: Oral 1020 / 1020 0 / 0 Output: Urine 0 / 0 Other: Date of Last Bowel Movement 09/15/18 09/15/18 Weight 67.4 kg Assessment and Plan - Assessment (1) Nonsustained ventricular tachycardia Code(s): I47.2 - Ventricular tachycardia Status: Acute (2) Coronary artery disease Code(s): I25.10 - Atherosclerotic heart disease of [place] coronary artery without angina pectoris Status: Acute (3) Pneumonia Code(s): J18.9 - Pneumonia, unspecified organism Status: Acute (4) ESRD (end stage renal disease) on dialysis Code(s): N18.6 - End stage renal disease; Z99.2 - Dependence on renal dialysis Status: Acute (5) Gangrene of right foot Code(s): I96 - Gangrene, not elsewhere classified Status: Acute (6) Gangrene of toe of right foot Code(s): I96 - Gangrene, not elsewhere classified Status: Acute (7) Pseudoaneurysm of distal brachial artery Code(s): I72.1 - Aneurysm of artery of upper extremity Status: Acute (8) COPD (chronic obstructive pulmonary disease) Code(s): J44.9 - Chronic obstructive pulmonary disease, unspecified Status: Acute - Plan Patient currently in SR, continue Amiodarone loading and BB. Patient is scheduled for dialysis tomorrow, we will monitor closely for V-tach. There is no indication for ICD placement at this time, will continue to monitor. Podiatry evaluation in progress for necrotic toes. We will continue to follow patient during his hospitalization. He will follow- up with [place] central office supervisor after discharge. Patient was seen and evaluated by Dr. Downing who participated in care, management and decision-making. - Attending Attestation Patient seen and examined. I reviewed and agree with the evaluation and plan as presented. Continue amio loading for VT. Dialysis tomorrow as planned. Monitor on tele. (3) Pneumonia Qualifiers: Pneumonia type: due to unspecified organism Laterality: right Lung location : lower lobe of lung Qualified Code(s): J18.1 - Lobar pneumonia, unspecified organism
[2018-09-21] MEDS: Heparin - SQ 10,000 UNITS/ML Vial SQ SCH ×3 (03:50→21:24)
[2018-09-21 06:34] LABS: Hematocrit 26.3 % (39.0-51.0); Hemoglobin 8.2 gm/dL (13.0-17.0); Mean Corpuscular HGB Conc 31.3 % (32.0-36.0); Mean Corpuscular Hemoglobin 30.5 pg (27.0-34.0); Mean Corpuscular Volume 97.5 fL (80.0-100.0); Mean Platelet Volume 8.5 fL (7.0-11.0); Platelet Count 61 th/mm3 (150-450); Red Blood Count 2.69 mil/mm3 (4.50-5.90); Red Cell Distribution Width 18.8 % (11.6-17.2); White Blood Count 5.4 th/mm3 (4.0-11.0)
[2018-09-21 07:29] LABS: Alanine Aminotransferase 11 U/L (12-78); Albumin 2.9 g/dL (3.4-5.0); Alkaline Phosphatase 60 U/L (45-117); Anion Gap 11 meq/L (5-15); Aspartate Aminotransferase 10 U/L (15-37); Blood Urea Nitrogen 54 mg/dL (7-18); Calcium 8.2 mg/dL (8.5-10.1); Carbon Dioxide 27.5 meq/L (21.0-32.0); Chloride 96 meq/L (98-107); Glomerular Filtration Rate 7 mL/min (>89); Glucose,Random 89 mg/dL (74-106); Phosphorus 4.9 mg/dL (2.5-4.9); Potassium 4.9 meq/L (3.5-5.1); Sodium 134 meq/L (136-145); Total Protein 6.1 g/dL (6.4-8.2)
[2018-09-21] MEDS: Amiodarone 200 MG Tablet PO SCH ×2 (08:40→21:28)
[2018-09-21] MEDS: Carvedilol 12.5 MG Tablet PO SCH ×2 (08:40→21:29)
[2018-09-21] MEDS: Pantoprazole Sodium 20 MG DR Tablet PO SCH (08:40)
[2018-09-21] MEDS: Budesonide-Formoterol 160/4.5 MCG 6 GM Inhaler INH SCH ×2 (08:40→21:29)
--- NOTE | 2018-09-21 10:29 | P.PNNP ---
Subjective Interval history: patient was seen and examined. Comfortable. Physical Exam Vital signs: Vital Signs 09/20/18 11:00 09/20/18 12:00 09/20/18 13:00 Temperature 97.7 F Pulse Rate 61 63 57 L Respiratory Rate 18 Blood Pressure 146/67 H Pulse Oximetry 98 09/20/18 14:00 09/20/18 15:00 09/20/18 16:00 Temperature 97.4 F L Pulse Rate 58 L 57 L 59 L Respiratory Rate 18 Blood Pressure 132/60 Pulse Oximetry 98 09/20/18 17:00 09/20/18 18:00 09/20/18 19:01 Temperature Pulse Rate 64 70 63 Respiratory Rate Blood Pressure Pulse Oximetry 09/20/18 19:50 09/20/18 20:00 09/20/18 21:03 Temperature 97.9 F Pulse Rate 65 61 59 L Respiratory Rate 18 Blood Pressure 149/71 H Pulse Oximetry 99 09/20/18 22:00 09/20/18 23:00 09/20/18 23:55 Temperature 97.8 F Pulse Rate 59 L 62 59 L Respiratory Rate 18 Blood Pressure 129/64 Pulse Oximetry 99 09/21/18 01:07 09/21/18 02:07 09/21/18 02:52 Temperature Pulse Rate 56 L 55 L 55 L Respiratory Rate Blood Pressure Pulse Oximetry 09/21/18 03:00 09/21/18 04:12 09/21/18 05:01 Temperature 97.6 F Pulse Rate 60 58 L 54 L Respiratory Rate 16 Blood Pressure 131/62 Pulse Oximetry 98 09/21/18 06:18 09/21/18 07:56 09/21/18 08:47 Temperature Pulse Rate 55 L 54 L Respiratory Rate Blood Pressure Pulse Oximetry 97 09/21/18 08:48 Temperature Pulse Rate 59 L Respiratory Rate 18 Blood Pressure Pulse Oximetry Intake & Output 09/20/18 09/21/18 09/21/18 18:59 06:59 18:59 Intake Total 720 / 720 120 / 120 Balance 720 / 720 120 / 120 Weight 67.5 kg Intake: Oral 720 / 720 120 / 120 Other: Date of Last Bowel Movement 09/20/18 09/20/18 Narrative: GENERAL: Patient sitting up on edge of bed. Appears comfortable. SKIN: Warm and dry. HEAD: Normocephalic. EYES: No scleral icterus. No injection or drainage. NECK: Supple, trachea midline. No JVD or lymphadenopathy. CARDIOVASCULAR: Regular rate and rhythm without murmurs, gallops, or rubs. RESPIRATORY: Breath sounds equal bilaterally. No accessory muscle use. GASTROINTESTINAL: Abdomen soft, non-tender, nondistended. MUSCULOSKELETAL: Ischemic ulcers on toes of right foot. AV fistula on left arm. Edema of the left arm, patent AVF BACK: Nontender without obvious deformity. No CVA tenderness. Assessment and Plan - Assessment (1) ESRD (end stage renal disease) on dialysis Code(s): N18.6 - End stage renal disease; Z99.2 - Dependence on renal dialysis Status: Acute Plan: Dialysis will be continued MWF. HD done Friday, next HD Friday Monitor fluid and electrolytes. Avoid Gadolinium. New AV access with good thrill. (2) Anemia Code(s): D64.9 - Anemia, unspecified Status: Acute Qualifiers: Anemia type: unspecified type Qualified Code(s): D64.9 - Anemia, unspecified Plan: Epogen with dialysis. (3) COPD (chronic obstructive pulmonary disease) Code(s): J44.9 - Chronic obstructive pulmonary disease, unspecified Status: Acute Plan: bronchodilators. Monitor. (4) Gangrene of right foot Code(s): I96 - Gangrene, not elsewhere classified Status: Acute Plan: management per primary team. (5) Nonsustained ventricular tachycardia Code(s): I47.2 - Ventricular tachycardia Status: Acute Plan: Seen by cardiology. Carvedilol started. monitor with dialysis Friday - Attending Attestation patient can be discharged from renal standpoint.
--- NOTE | 2018-09-21 10:45 | P.PNCA ---
Subjective Interval history: Patient denies any CP, pressure, palpitations, dizziness or SOB. Patient does complain of edema in the lower extremities. Medications and Allergies Allergies Allergy/AdvReac Type Severity Reaction Status Date / Time topiramate [From Topamax] Allergy Unknown unknown Verified 08/31/18 11:31 Home Medications Medication Instructions Recorded Confirmed Type albuterol sulfate 1 puff INHALATION Q4-6H PRN 07/09/18 09/15/18 History amlodipine 10 mg PO DAILY 07/09/18 09/15/18 History aspirin 81 mg PO DAILY 07/09/18 09/15/18 History atorvastatin [Lipitor] 20 mg PO DAILY 07/09/18 09/15/18 History budesonide-formoterol [Symbicort] 2 puff INHALATION BID 07/09/18 09/15/18 History carvedilol [Coreg] 25 mg PO BID 07/09/18 09/15/18 History gabapentin 300 mg PO DAILY 07/09/18 09/15/18 History loratadine [Claritin] 20 mg PO DAILY 07/09/18 09/15/18 History omeprazole 20 mg PO DAILY 07/09/18 09/15/18 History sennosides-docusate sodium [Senna 1 tab PO BID 07/09/18 09/15/18 History Plus] bupropion HCl [Wellbutrin XL] 150 mg PO QAM 08/31/18 09/15/18 History calcium acetate 667 mg PO TID 08/31/18 09/15/18 History guaifenesin 600 mg PO Q12H 08/31/18 09/15/18 History sevelamer carbonate [Renvela] 800 mg PO DAILY 08/31/18 09/15/18 History alprazolam [Xanax] 0.25 mg PO DAILY 09/15/18 09/15/18 History Active Medications: Active Medications Acetaminophen (Tylenol) 650 mg PO UNSCH X1 PRN PRN Reason: SEE LABEL COMMENTS Albuterol (Albuterol Neb (Prn)) 2.5 mg NEB Q4HR NEB PRN PRN Reason: SHORTNESS OF BREATH Last Admin: 09/21/18 08:45 Dose: 2.5 mg Albuterol (Ventolin Hfa Inh) 1 puff INH Q4HR NEB PRN PRN Reason: Shortness Of Breath Alprazolam (Xanax) 0.25 mg PO DAILY PRN PRN Reason: ANXIETY Last Admin: 09/18/18 14:41 Dose: 0.25 mg Amiodarone HCl (Cordarone) 400 mg PO BID [facility] Last Admin: 09/21/18 08:40 Dose: 400 mg Aspirin (Ecotrin) 81 mg PO DAILY [facility] Last Admin: 09/21/18 08:40 Dose: 81 mg Atorvastatin Calcium (Lipitor) 20 mg PO DAILY [facility] Last Admin: 09/21/18 08:40 Dose: 20 mg Budesonide/Formoterol Fumarate (Symbicort 160/4.5 Mcg Inh) 2 puff INH BID [facility] Last Admin: 09/21/18 08:40 Dose: 2 puff Carvedilol (Coreg) 25 mg PO BID [facility] Last Admin: 09/21/18 08:40 Dose: 25 mg Clonidine HCl (Catapres) 0.1 mg PO UNSCH X1 PRN PRN Reason: SEE LABEL COMMENTS Collagenase (Santyl Oint) 1 applicatio TOPICAL DAILY [facility] Last Admin: 09/20/18 09:04 Dose: 1 applicatio Diphenhydramine HCl (Benadryl) 25 mg PO UNSCH PRN PRN Reason: SEE LABEL COMMENTS Epoetin Joshua (Epogen Inj) 10,000 unit IV.PUSH UNSCH PRN PRN Reason: SEE LABEL COMMENTS Last Admin: 09/18/18 16:04 Dose: 10,000 unit Gelatin (Gelfoam 12 Mm/7 Mm Topical) 1 foam TOPICAL UNSCH PRN PRN Reason: help stop bleeding from site Gentamicin Sulfate (Gentamicin Inj) 20 mg OTHER WITH DIALYSIS PRN PRN Reason: Dwell Gentamycin Lock Last Admin: 09/18/18 16:06 Dose: 20 mg Heparin Sodium (Porcine) (Heparin Inj) 5,000 units SQ Q8H [facility] Last Admin: 09/21/18 03:50 Dose: 5,000 units Heparin Sodium (Porcine) (Heparin Inj) 0 units OTHER WITH DIALYSIS PRN PRN Reason: Dwell Heparin to Fill Catheter Last Admin: 09/18/18 16:06 Dose: 1,000 units Heparin Sodium (Porcine) (Heparin Inj) 8,000 units OTHER WITH DIALYSIS PRN PRN Reason: for machine prime Hydromorphone HCl (Dilaudid) 2 mg PO Q4H PRN PRN Reason: PAIN SCALE 6 TO 10 Last Admin: 09/21/18 09:58 Dose: 2 mg Albumin Human (Flexbumin 25% Inj) 100 mls @ 60 mls/hr IV.SIG WITH DIALYSIS PRN PRN Reason: hypotension / volume replace Sodium Chloride (Ns Inj) 1,000 mls @ 0 mls/hr OTHER .Q0M PRN PRN Reason: for prime and rinse back Sodium Chloride (Ns Inj) 1,000 mls @ 200 mls/hr OTHER .Q5H PRN PRN Reason: for dialyzer flush PRN Sodium Chloride (Ns Inj) 1,000 mls @ 0 mls/hr IV.CONT .Q0M PRN PRN Reason: hypotension / volume replace Mannitol (Mannitol Inj) 12.5 gm IV.PUSH UNSCH PRN PRN Reason: hypotension / volume replace Morphine Sulfate (Morphine Inj) 2 mg IV.PUSH Q1H PRN PRN Reason: BREAKTHROUGH PAIN Last Admin: 09/16/18 02:28 Dose: 2 mg Nitroglycerin (Nitrostat Sl) 0.4 mg SL Q5M PRN PRN Reason: CHEST PAIN Ondansetron HCl (Zofran Inj) 4 mg IV.PUSH UNSCH X1 PRN PRN Reason: WITH DIALYSIS Oxycodone HCl (Roxicodone) 5 mg PO Q4H PRN PRN Reason: PAIN SCALE 1 TO 5 Last Admin: 09/19/18 22:53 Dose: 5 mg Pantoprazole Sodium (Protonix) 20 mg PO DAILY [facility] Last Admin: 09/21/18 08:40 Dose: 20 mg Sodium Chloride (Ns Flush) 5 ml IV.FLUSH UNSCH PRN PRN Reason: flush each lumen during HD Last Admin: 09/21/18 08:42 Dose: 5 ml Physical Exam Vital signs: Vital Signs 09/20/18 11:00 09/20/18 12:00 09/20/18 13:00 Temperature 97.7 F Pulse Rate 61 63 57 L Respiratory Rate 18 Blood Pressure 146/67 H Pulse Oximetry 98 09/20/18 14:00 09/20/18 15:00 09/20/18 16:00 Temperature 97.4 F L Pulse Rate 58 L 57 L 59 L Respiratory Rate 18 Blood Pressure 132/60 Pulse Oximetry 98 09/20/18 17:00 09/20/18 18:00 09/20/18 19:01 Temperature Pulse Rate 64 70 63 Respiratory Rate Blood Pressure Pulse Oximetry 09/20/18 19:50 09/20/18 20:00 09/20/18 21:03 Temperature 97.9 F Pulse Rate 65 61 59 L Respiratory Rate 18 Blood Pressure 149/71 H Pulse Oximetry 99 09/20/18 22:00 09/20/18 23:00 09/20/18 23:55 Temperature 97.8 F Pulse Rate 59 L 62 59 L Respiratory Rate 18 Blood Pressure 129/64 Pulse Oximetry 99 09/21/18 01:07 09/21/18 02:07 09/21/18 02:52 Temperature Pulse Rate 56 L 55 L 55 L Respiratory Rate Blood Pressure Pulse Oximetry 09/21/18 03:00 09/21/18 04:12 09/21/18 05:01 Temperature 97.6 F Pulse Rate 60 58 L 54 L Respiratory Rate 16 Blood Pressure 131/62 Pulse Oximetry 98 09/21/18 06:18 09/21/18 07:56 09/21/18 08:00 Temperature 97.4 F L Pulse Rate 55 L 54 L 57 L Respiratory Rate 18 Blood Pressure 147/73 H Pulse Oximetry 97 09/21/18 08:47 09/21/18 08:48 Temperature Pulse Rate 59 L Respiratory Rate 18 Blood Pressure Pulse Oximetry 97 Intake & Output 09/20/18 09/21/18 09/21/18 18:59 06:59 18:59 Intake Total 720 / 720 120 / 120 Balance 720 / 720 120 / 120 Weight 67.5 kg Intake: Oral 720 / 720 120 / 120 Other: Date of Last Bowel Movement 09/20/18 09/20/18 - Constitutional no acute distress - Routine HEENT Exam Head: Present: normocephalic Eye: Present: PERRL ENT: Present: mucous membranes moist - Routine Neck Exam Present: full ROM - Routine Respiratory Exam Present: CTA bilaterally - Routine Cardiovascular Exam Present: S1, S2. Absent: murmur, gallop, rubs - Routine Abdominal Exam Present: normoactive bowel sounds - Routine Extremities Exam Present: edema, full ROM. Absent: cyanosis, clubbing Comments: 3+ edema lower extremities. Wounds and necrotic areas on toes. - Routine Skin Exam Present: lesions, wounds, ecchymosis - Routine Neurological Exam Present: oriented X3 - Detailed Neurological Exam: Coma Scale Eye Opening: Spontaneous Verbal Response: Oriented Motor Response: Obey commands [place] Coma Scale Total: 15 - Routine Psychiatric Exam Present: normal affect Results 09/21/18 06:15 09/21/18 06:15 Cardiac Enzymes 09/21/18 Range/Units 06:15 AST 10 L (15-37) U/L CBC 09/21/18 Range/Units 06:15 WBC 5.4 (4.0-11.0) th/mm3 RBC 2.69 L (4.50-5.90) mil/mm3 Hgb 8.2 L (13.0-17.0) gm/dL Hct 26.3 L (39.0-51.0) % Plt Count 61 L (150-450) th/mm3 Comprehensive Metabolic Panel 09/21/18 Range/Units 06:15 Sodium 134 L (136-145) meq/L Potassium 4.9 (3.5-5.1) meq/L Chloride 96 L (98-107) meq/L Carbon Dioxide 27.5 (21.0-32.0) meq/L BUN 54 H (7-18) mg/dL Creatinine 8.06 H (0.60-1.30) mg/dL Calcium 8.2 L (8.5-10.1) mg/dL AST 10 L (15-37) U/L ALT 11 L (12-78) U/L Alkaline Phosphatase 60 (45-117) U/L Total Protein 6.1 L (6.4-8.2) g/dL Albumin 2.9 L (3.4-5.0) g/dL Intake and Output 09/20/18 09/21/18 09/21/18 22:59 06:59 14:59 Intake Total 720 / 720 120 / 120 Balance 720 / 720 120 / 120 Intake: Oral 720 / 720 120 / 120 Other: Date of Last Bowel Movement 09/20/18 Weight 67.5 kg Assessment and Plan - Assessment (1) Nonsustained ventricular tachycardia Code(s): I47.2 - Ventricular tachycardia Status: Acute (2) Coronary artery disease Code(s): I25.10 - Atherosclerotic heart disease of [place] coronary artery without angina pectoris Status: Acute (3) Pneumonia Code(s): J18.9 - Pneumonia, unspecified organism Status: Acute (4) ESRD (end stage renal disease) on dialysis Code(s): N18.6 - End stage renal disease; Z99.2 - Dependence on renal dialysis Status: Acute (5) Gangrene of right foot Code(s): I96 - Gangrene, not elsewhere classified Status: Acute (6) Gangrene of toe of right foot Code(s): I96 - Gangrene, not elsewhere classified Status: Acute (7) Pseudoaneurysm of distal brachial artery Code(s): I72.1 - Aneurysm of artery of upper extremity Status: Acute (8) COPD (chronic obstructive pulmonary disease) Code(s): J44.9 - Chronic obstructive pulmonary disease, unspecified Status: Acute - Plan Continue Amiodarone loading for VT. Patient will be receiving dialysis this afternoon, will monitor closely. Currently, there is no indication for ICD placement at this time. We will continue to follow the patient during his hospitalization. He will follow-up with the [place] bicycle assembler after discharge. Patient was seen and evaluated by Dr. Downing who participated in care, management and decision-making. - Attending Attestation Patient seen and examined. I reviewed and agree with the evaluation and plan as presented. Continue amio loading. Dialysis today. Continue tele monitoring. (3) Pneumonia Qualifiers: Pneumonia type: due to unspecified organism Laterality: right Lung location : lower lobe of lung Qualified Code(s): J18.1 - Lobar pneumonia, unspecified organism
[2018-09-21] MEDS: ALPRAZolam 0.25 MG Tablet PO PRN (16:00)
--- NOTE | 2018-09-21 23:01 | P.PNIM ---
Subjective Interval history: patient seen this afternoon in dialysis. Denies any chest pain. Denies palpitations. Physical Exam Vital signs: Vital Signs 09/20/18 23:00 09/20/18 23:55 09/21/18 01:07 Temperature 97.8 F Pulse Rate 62 59 L 56 L Respiratory Rate 18 Blood Pressure 129/64 Pulse Oximetry 99 09/21/18 02:07 09/21/18 02:52 09/21/18 03:00 Temperature 97.6 F Pulse Rate 55 L 55 L 60 Respiratory Rate 16 Blood Pressure 131/62 Pulse Oximetry 98 09/21/18 04:12 09/21/18 05:01 09/21/18 06:18 Temperature Pulse Rate 58 L 54 L 55 L Respiratory Rate Blood Pressure Pulse Oximetry 09/21/18 07:56 09/21/18 08:00 09/21/18 08:47 Temperature 97.4 F L Pulse Rate 54 L 57 L Respiratory Rate 18 Blood Pressure 147/73 H Pulse Oximetry 97 97 09/21/18 08:48 09/21/18 09:00 09/21/18 11:00 Temperature Pulse Rate 59 L 56 L Respiratory Rate 18 16 Blood Pressure Pulse Oximetry 09/21/18 12:00 09/21/18 12:57 09/21/18 15:00 Temperature 97.6 F Pulse Rate 56 L 57 L 54 L Respiratory Rate 16 Blood Pressure 129/63 Pulse Oximetry 99 09/21/18 16:03 09/21/18 16:14 09/21/18 17:00 Temperature 97.3 F L Pulse Rate 56 L 57 L 54 L Respiratory Rate 18 Blood Pressure 135/70 Pulse Oximetry 98 09/21/18 18:00 Temperature Pulse Rate 58 L Respiratory Rate Blood Pressure Pulse Oximetry Intake & Output 09/21/18 09/21/18 09/22/18 06:59 18:59 06:59 Intake Total 120 / 120 Output Total 4000 / 4000 Balance 120 / 120 -4000 / -4000 Weight 67.5 kg Intake: Oral 120 / 120 Output: Hemodialysis Amount 4000 / 4000 Other: Date of Last Bowel Movement 09/20/18 09/21/18 Narrative: GENERAL: Patient lying in dialysis bed.. Appears comfortable. SKIN: Warm and dry. HEAD: Normocephalic. EYES: No scleral icterus. No injection or drainage. NECK: Supple, trachea midline. No JVD or lymphadenopathy. CARDIOVASCULAR: Regular rate and rhythm without murmurs, gallops, or rubs. RESPIRATORY: Breath sounds equal bilaterally. No accessory muscle use. GASTROINTESTINAL: Abdomen soft, non-tender, nondistended. MUSCULOSKELETAL: Ischemic ulcers on toes of right foot. AV fistula on left arm. Edema of the left arm, patent AVF BACK: Nontender without obvious deformity. No CVA tenderness. Results - Labs CBC & Chem 7: 09/21/18 06:15 09/21/18 06:15 Laboratory Results - last 24 hr 09/21/18 09/21/18 06:15 06:15 WBC 5.4 RBC 2.69 L Hgb 8.2 L Hct 26.3 L MCV 97.5 MCH 30.5 MCHC 31.3 L RDW 18.8 H Plt Count 61 L MPV 8.5 Sodium 134 L Potassium 4.9 Chloride 96 L Carbon Dioxide 27.5 Anion Gap 11 BUN 54 H Creatinine 8.06 H Estimated GFR 7 L Random Glucose 89 Calcium 8.2 L Phosphorus 4.9 Magnesium 2.0 Total Bilirubin 0.7 AST 10 L ALT 11 L Alkaline Phosphatase 60 Total Protein 6.1 L Albumin 2.9 L Assessment and Plan - Plan 67-year-old male admitted for AV graft revision, patient had nonsustained V. tach during hemodialysis. 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 = 09/19. Patient reports edema and swelling in the left arm over the past day. Have discussed with nursing who will contact vascular surgery. = 09/20. Hematoma of left arm, however functioning AV fistula. //Nonsustained V. tach: - Cardiology following. Patient was not on his regular home dose of Coreg. This has been restarted. - Continue to monitor on telemetry. Echocardiogram per cardiology. = 09/19. Echocardiogram from 09/16 with ejection fraction of 30%, apical akinesis. Appreciate cardiology assistance. Follow-up recommendations. = 09/20. Patient with symptomatic V. tach in hemodialysis. Continue on amiodarone loading as per cardiology. Will monitor in dialysis on Friday. Appreciate cardiology assistance. =09/21. Monitor for V. tach.appreciate cardiology assistance. //End-stage renal disease on hemodialysis: - Nephrology following. = Still with marked edema. Will need continued dialysis //Right foot ischemic eschars: -Podiatry following. Currently being treated with Santyl with plan for outpatient follow-up to consider debridement. -Pain control = Continue wound care. Follow-up with podiatry as outpatient. //Hypertension: - Blood pressure currently acceptable. On Coreg as above. Normally takes amlodipine at home. Continue to monitor and restart as indicated. COPD: Resume home dose inhalers. GI prophylaxis: Stool softener PRN constipation. DVT PPx: Heparin sq Discharge Planning: Would probably benefit from home health. However patient is likely to refuse. Plan to DC when cleared by Cardiology, vasc surgery. Continue to monitor on telemetry to ensure he does not have any more V. tach ==we'll need to have cardiology clearance
[2018-09-22] MEDS: Heparin - SQ 10,000 UNITS/ML Vial SQ SCH ×2 (04:46→11:27)
[2018-09-22 06:29] LABS: Hematocrit 25.5 % (39.0-51.0); Mean Corpuscular HGB Conc 31.2 % (32.0-36.0); Mean Corpuscular Hemoglobin 30.4 pg (27.0-34.0); Mean Corpuscular Volume 97.3 fL (80.0-100.0); Mean Platelet Volume 10.1 fL (7.0-11.0); Platelet Count 64 th/mm3 (150-450); Red Blood Count 2.62 mil/mm3 (4.50-5.90); White Blood Count 4.7 th/mm3 (4.0-11.0)
[2018-09-22 07:07] LABS: Alanine Aminotransferase 11 U/L (12-78); Albumin 2.8 g/dL (3.4-5.0); Anion Gap 10 meq/L (5-15); Aspartate Aminotransferase 11 U/L (15-37); Blood Urea Nitrogen 38 mg/dL (7-18); Calcium 7.8 mg/dL (8.5-10.1); Carbon Dioxide 29.5 meq/L (21.0-32.0); Chloride 98 meq/L (98-107); Glomerular Filtration Rate 9 mL/min (>89); Glucose,Random 103 mg/dL (74-106); Magnesium 1.9 mg/dL (1.5-2.5); Phosphorus 4.5 mg/dL (2.5-4.9); Potassium 4.7 meq/L (3.5-5.1); Sodium 137 meq/L (136-145)
[2018-09-22 07:08] LABS: Alkaline Phosphatase 60 U/L (45-117); Total Protein 5.9 g/dL (6.4-8.2)
[2018-09-22] MEDS: Amiodarone 200 MG Tablet PO SCH (09:21)
[2018-09-22] MEDS: Carvedilol 12.5 MG Tablet PO SCH (09:21)
[2018-09-22] MEDS: Pantoprazole Sodium 20 MG DR Tablet PO SCH (09:23)
[2018-09-22] MEDS: Collagenase Oint 30 GM Tube TOPICAL SCH (09:24)
[2018-09-22] MEDS: Budesonide-Formoterol 160/4.5 MCG 6 GM Inhaler INH SCH (09:25)
--- NOTE | 2018-09-22 10:11 | P.PNIM ---
Subjective Interval history: Patient says he is feeling well. Says he would like to go home. Denies any chest pain or shortness of breath. No episodes of V. tach in dialysis yesterday. Physical Exam Vital signs: Vital Signs 09/21/18 11:00 09/21/18 12:00 09/21/18 12:57 Temperature 97.6 F Pulse Rate 56 L 57 L Respiratory Rate 16 16 Blood Pressure 129/63 Pulse Oximetry 99 09/21/18 15:00 09/21/18 16:03 09/21/18 16:14 Temperature 97.3 F L Pulse Rate 54 L 56 L 57 L Respiratory Rate 18 Blood Pressure 135/70 Pulse Oximetry 98 09/21/18 17:00 09/21/18 18:00 09/21/18 20:00 Temperature 97.1 F L Pulse Rate 54 L 58 L 62 Respiratory Rate 18 Blood Pressure 142/60 H Pulse Oximetry 100 09/21/18 21:00 09/21/18 22:00 09/21/18 23:00 Temperature 97.9 F Pulse Rate 64 60 64 Respiratory Rate 18 Blood Pressure 126/64 Pulse Oximetry 97 09/22/18 00:00 09/22/18 01:00 09/22/18 02:00 Temperature Pulse Rate 64 60 57 L Respiratory Rate Blood Pressure Pulse Oximetry 09/22/18 03:00 09/22/18 03:30 09/22/18 04:00 Temperature 97.8 F Pulse Rate 58 L 58 L 56 L Respiratory Rate 18 18 Blood Pressure 142/65 H Pulse Oximetry 98 09/22/18 04:10 09/22/18 05:00 09/22/18 06:00 Temperature Pulse Rate 54 L 56 L Respiratory Rate 18 Blood Pressure Pulse Oximetry 09/22/18 07:00 09/22/18 08:00 09/22/18 09:35 Temperature 97.7 F Pulse Rate 62 82 Respiratory Rate 18 20 Blood Pressure 128/50 L Pulse Oximetry 95 95 Intake & Output 09/21/18 09/22/18 09/22/18 18:59 06:59 18:59 Intake Total 240 / 240 Output Total 4000 / 4000 Balance -3760 / -3760 Weight 65.2 kg Intake: Oral 240 / 240 Output: Urine 0 / 0 Hemodialysis Amount 4000 / 4000 Other: Date of Last Bowel Movement 09/21/18 09/21/18 # Bowel Movements 0 Narrative: GENERAL: Patient sitting up in bed. Appears comfortable. SKIN: Warm and dry. HEAD: Normocephalic. EYES: No scleral icterus. No injection or drainage. NECK: Supple, trachea midline. No JVD. CARDIOVASCULAR: Regular rate and rhythm without murmurs, gallops, or rubs. RESPIRATORY: Breath sounds equal bilaterally. No accessory muscle use. GASTROINTESTINAL: Abdomen soft, non-tender, nondistended. MUSCULOSKELETAL: Ischemic ulcers on toes of right foot. AV fistula on left arm. Edema of the left arm, improving. Patent AVF BACK: Nontender without obvious deformity. No CVA tenderness. Results - Labs CBC & Chem 7: 09/22/18 05:39 09/22/18 05:39 Laboratory Results - last 24 hr 09/22/18 09/22/18 05:39 05:39 WBC 4.7 RBC 2.62 L Hgb 8.0 L Hct 25.5 L MCV 97.3 MCH 30.4 MCHC 31.2 L RDW 19.0 H Plt Count 64 L MPV 10.1 Sodium 137 Potassium 4.7 Chloride 98 Carbon Dioxide 29.5 Anion Gap 10 BUN 38 H Creatinine 6.39 H Estimated GFR 9 L Random Glucose 103 Calcium 7.8 L Phosphorus 4.5 Magnesium 1.9 Total Bilirubin 0.6 AST 11 L ALT 11 L Alkaline Phosphatase 60 Total Protein 5.9 L Albumin 2.8 L Assessment and Plan - Plan 67-year-old male admitted for AV graft revision, patient had nonsustained V. tach during hemodialysis. 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 = 09/19. Patient reports edema and swelling in the left arm over the past day. Have discussed with nursing who will contact vascular surgery. = 09/20. Hematoma of left arm, however functioning AV fistula. All with vascular surgery as outpatient. //Nonsustained V. tach: - Cardiology following. Patient was not on his regular home dose of Coreg. This has been restarted. - Continue to monitor on telemetry. Echocardiogram per cardiology. = 09/19. Echocardiogram from 09/16 with ejection fraction of 30%, apical akinesis. Appreciate cardiology assistance. Follow-up recommendations. = 09/20. Patient with symptomatic V. tach in hemodialysis. Continue on amiodarone loading as per cardiology. Will monitor in dialysis on Friday. Appreciate cardiology assistance. =09/21. Monitor for V. tach.appreciate cardiology assistance. = 09/21. Had dialysis yesterday without ventricular tachycardia reported. Follow-up cardiology recommendations. //End-stage renal disease on hemodialysis: - Nephrology following. =Will need continued dialysis //Right foot ischemic eschars: -Podiatry following. Currently being treated with Santyl with plan for outpatient follow-up to consider debridement. -Pain control = Continue wound care. Follow-up with podiatry as outpatient. //Hypertension: - Blood pressure currently acceptable. On Coreg as above. Normally takes amlodipine at home. Continue to monitor and restart as indicated. COPD: Resume home dose inhalers. GI prophylaxis: Stool softener PRN constipation. DVT PPx: Heparin sq Discharge Planning: Would probably benefit from home health. However patient is likely to refuse. Plan to DC when cleared by Cardiology, vasc surgery. Continue to monitor on telemetry to ensure he does not have any more V. tach ==we'll need to have cardiology clearance
--- NOTE | 2018-09-22 10:27 | P.DCO ---
- Diagnosis (1) ESRD (end stage renal disease) on dialysis Status: Acute (2) Gangrene of right foot Status: Acute - Physical Therapy Order: Evaluate and treat - Home Health Nursing Order: Wound care and dressing changes Instructions: Dressing changes to right foot as per podiatry recommendations. he will also need home health nurse for medication management. - Price Changer Order: To provide: Long range planning - Case Management Consult Yes - Certification I have seen patient Toro Seo on 09/22/18. My clinical findings support the need for the requested home health care services because: Limited ability to care for self I certify that my clinical findings support that this patient is homebound because: Unsafe to leave home unassisted
--- NOTE | 2018-09-22 10:28 | P.DS ---
Date of admission: 09/15/18 12:36 Primary care physician: [facility] Brief History from admission: 67-year-old male with complex medical history including end-stage renal disease on hemodialysis, COPD, hypertension, diabetes admitted to the hospital for revision of AV fistula by vascular surgery. The patient was receiving dialysis and had a nonsustained run of ventricular tachycardia. At the time he denied any symptoms. Hospitalist service consulted to assist with medical management. The patient is seen in his room in the cardiac unit. He currently denies any chest pain or shortness of breath. DS: Diagnosis - Discharge Diagnosis (1) ESRD (end stage renal disease) on dialysis Status: Acute (2) Gangrene of right foot Status: Acute DS: Medications - Discharge Medications Prescriptions: albuterol sulfate [Ventolin HFA] 1 puff INH Q4HR NEB PRN 30 Days g PRN Reason: Shortness Of Breath amiodarone [Pacerone] See Label Instructions .ROUTE .COMPLEX 30 Days #51 tab carvedilol [Coreg] 25 mg PO BID 30 Days #60 tab collagenase clostridium histo. [Santyl] 1 applicatio TOPICAL DAILY 30 Days g DS: Summary Hospital Course: Patient admitted for AV graft revision which patient underwent, however had an episode of ventricular tachycardia, with symptomatic episode of ventricular tachycardia in hemodialysis. Patient underwent amiodarone loading with improvement. Patient will need a follow-up with cardiology and vascular surgery as outpatient. Patient with right foot ischemia eschars for which she was seen by podiatry and will need to follow with podiatry as outpatient. For problem-based summary for most recent progress note, please see below. 67-year-old male admitted for AV graft revision, patient had nonsustained V. tach during hemodialysis. 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 = 09/19. Patient reports edema and swelling in the left arm over the past day. Have discussed with nursing who will contact vascular surgery. = 09/20. Hematoma of left arm, however functioning AV fistula. All with vascular surgery as outpatient. //Nonsustained V. tach: - Cardiology following. Patient was not on his regular home dose of Coreg. This has been restarted. - Continue to monitor on telemetry. Echocardiogram per cardiology. = 09/19. Echocardiogram from 09/16 with ejection fraction of 30%, apical akinesis. Appreciate cardiology assistance. Follow-up recommendations. = 09/20. Patient with symptomatic V. tach in hemodialysis. Continue on amiodarone loading as per cardiology. Will monitor in dialysis on Friday. Appreciate cardiology assistance. =09/21. Monitor for V. tach.appreciate cardiology assistance. = 09/21. Had dialysis yesterday without ventricular tachycardia reported. Follow-up cardiology recommendations. //End-stage renal disease on hemodialysis: - Nephrology following. =Will need continued dialysis //Right foot ischemic eschars: -Podiatry following. Currently being treated with Santyl with plan for outpatient follow-up to consider debridement. -Pain control = Continue wound care. Follow-up with podiatry as outpatient. //Hypertension: - Blood pressure currently acceptable. On Coreg as above. Normally takes amlodipine at home. Continue to monitor and restart as indicated. COPD: Resume home dose inhalers. GI prophylaxis: Stool softener PRN constipation. DVT PPx: Heparin sq Discharge Planning: Would probably benefit from home health. However patient is likely to refuse. Plan to DC when cleared by Cardiology, vasc surgery. Continue to monitor on telemetry to ensure he does not have any more V. tach ==we'll need to have cardiology clearance - Time Spent with Patient Total time spent providing and/or coordinating discharge services: Greater than 30 minutes Exam Vital signs: Vital Signs 09/21/18 11:00 09/21/18 12:00 09/21/18 12:57 Temperature 97.6 F Pulse Rate 56 L 57 L Respiratory Rate 16 16 Blood Pressure 129/63 Pulse Oximetry 99 09/21/18 15:00 09/21/18 16:03 09/21/18 16:14 Temperature 97.3 F L Pulse Rate 54 L 56 L 57 L Respiratory Rate 18 Blood Pressure 135/70 Pulse Oximetry 98 09/21/18 17:00 09/21/18 18:00 09/21/18 20:00 Temperature 97.1 F L Pulse Rate 54 L 58 L 62 Respiratory Rate 18 Blood Pressure 142/60 H Pulse Oximetry 100 09/21/18 21:00 09/21/18 22:00 09/21/18 23:00 Temperature 97.9 F Pulse Rate 64 60 64 Respiratory Rate 18 Blood Pressure 126/64 Pulse Oximetry 97 09/22/18 00:00 09/22/18 01:00 09/22/18 02:00 Temperature Pulse Rate 64 60 57 L Respiratory Rate Blood Pressure Pulse Oximetry 09/22/18 03:00 09/22/18 03:30 09/22/18 04:00 Temperature 97.8 F Pulse Rate 58 L 58 L 56 L Respiratory Rate 18 18 Blood Pressure 142/65 H Pulse Oximetry 98 09/22/18 04:10 09/22/18 05:00 09/22/18 06:00 Temperature Pulse Rate 54 L 56 L Respiratory Rate 18 Blood Pressure Pulse Oximetry 09/22/18 07:00 09/22/18 08:00 09/22/18 09:35 Temperature 97.7 F Pulse Rate 62 82 Respiratory Rate 18 20 Blood Pressure 128/50 L Pulse Oximetry 95 95 Intake & Output 09/21/18 09/22/18 09/22/18 18:59 06:59 18:59 Intake Total 240 / 240 Output Total 4000 / 4000 Balance -3760 / -3760 Weight 65.2 kg Intake: Oral 240 / 240 Output: Urine 0 / 0 Hemodialysis Amount 4000 / 4000 Other: Date of Last Bowel Movement 09/21/18 09/21/18 # Bowel Movements 0 Results Procedures completed during hospitalization: revision of AV fistula. Please see report Labs on day of discharge: Labs from last 24 hours 09/22/18 09/22/18 05:39 05:39 WBC 4.7 RBC 2.62 L Hgb 8.0 L Hct 25.5 L MCV 97.3 MCH 30.4 MCHC 31.2 L RDW 19.0 H Plt Count 64 L MPV 10.1 Sodium 137 Potassium 4.7 Chloride 98 Carbon Dioxide 29.5 Anion Gap 10 BUN 38 H Creatinine 6.39 H Estimated GFR 9 L Random Glucose 103 Calcium 7.8 L Phosphorus 4.5 Magnesium 1.9 Total Bilirubin 0.6 AST 11 L ALT 11 L Alkaline Phosphatase 60 Total Protein 5.9 L Albumin 2.8 L - Impressions ITS Impressions Chest X-Ray 09/15/18 00:00 CONCLUSION: No significant change. Persistent or recurrent right base consolidation and effusion. Discharge Plan - Discharge Disposition Patient Disposition: Disch W/Home Health Service - Discharge Condition Condition: Good - Discharge Order Discharge Orders: Discharge Order (Routine); Ordered 09/22/18 Ordered By: Abdulaziz Preston - Discharge Details Anticipated Discharge Date: 09/22/18 - Physicians Team Primary Care Provider: [facility] Attending Provider: Abdulaziz Preston Other Providers: Mahendra Raines MD ; Tien Alexander DPM ; Dorinda Downing MD - Rxs /Orders / Referrals /Forms Prescriptions: New albuterol sulfate [Ventolin HFA] 90 mcg/actuation Hfa Aerosol Inhaler 1 puff INH Q4HR NEB PRN (Reason: Shortness Of Breath) 30 Days RF: 0 amiodarone [Pacerone] 200 mg Tablet See Label Instructions .ROUTE .COMPLEX 30 Days Qty: 51 RF: 0 collagenase clostridium histo. [Santyl] 250 unit/gram Ointment 1 applicatio Topical DAILY 30 Days RF: 0 Continue alprazolam [Xanax] 0.25 mg Tablet 0.25 mg PO DAILY aspirin 81 mg Tablet,Delayed Release (Dr/Ec) 81 mg PO DAILY atorvastatin [Lipitor] 20 mg Tablet 20 mg PO DAILY budesonide-formoterol [Symbicort] 160-4.5 mcg/actuation Hfa Aerosol Inhaler 2 puff INHALATION BID carvedilol [Coreg] 25 mg Tablet 25 mg PO BID 30 Days Qty: 60 loratadine [Claritin] 10 mg Tablet 20 mg PO DAILY omeprazole 20 mg Capsule,Delayed Release(Dr/Ec) 20 mg PO DAILY oxycodone-acetaminophen [Percocet] 5-325 mg Tablet 1 tab PO Q4HR PRN (Reason: Pain) Qty: 8 sennosides-docusate sodium [Senna Plus] 8.6-50 mg Tablet 1 tab PO BID sevelamer carbonate [Renvela] 800 mg Tablet 800 mg PO DAILY Discontinued albuterol sulfate 90 mcg/actuation Hfa Aerosol Inhaler 1 puff INHALATION Q4-6H PRN (Reason: Shortness Of Breath) amlodipine 10 mg Tablet 10 mg PO DAILY bupropion HCl [Wellbutrin XL] 150 mg Tablet Extended Release 24 Hr 150 mg PO QAM calcium acetate 667 mg Tablet 667 mg PO TID gabapentin 300 mg Capsule 300 mg PO DAILY guaifenesin 600 mg Tablet Extended Release 12hr 600 mg PO Q12H Referrals: Tien Alexander DPM [Physician] - See Instructions [facility] [Primary Care Provider] - See Instructions Mahendra Raines MD [Physician] - See Instructions Dorinda Downing MD [Physician] - See Instructions (Follow up with [facility] program research specialist [facility] within 1 week) Rodrick Reid MD [Physician] - See Instructions (Your Post Operative Follow- up is scheduled on 09/25/18 at 11:00) - Discharge Instructions Patient Printed Instructions: Amiodarone (By mouth), Dialysis Diet (DC), Preventing Infections (GEN), Acute Wound Care (DC), Arteriovenous Fistula Creation for Hemodialysis (DC)
[2018-09-22 11:33] VITALS: BP 135/60; TEMP 97.8; O2SAT 99
[2018-09-22 12:08] VITALS: RESP 18
--- NOTE | 2018-09-22 13:43 | P.PNCA ---
Subjective Interval history: Patient denies any CP, pressure, palpitations, dizziness or SOB. Patient complains of edema in the lower extremities that is always there. Medications and Allergies Allergies Allergy/AdvReac Type Severity Reaction Status Date / Time topiramate [From Topamax] Allergy Unknown unknown Verified 08/31/18 11:31 Home Medications Medication Instructions Recorded Confirmed Type aspirin 81 mg PO DAILY 07/09/18 09/15/18 History atorvastatin [Lipitor] 20 mg PO DAILY 07/09/18 09/15/18 History budesonide-formoterol [Symbicort] 2 puff INHALATION BID 07/09/18 09/15/18 History loratadine [Claritin] 20 mg PO DAILY 07/09/18 09/15/18 History omeprazole 20 mg PO DAILY 07/09/18 09/15/18 History sennosides-docusate sodium [Senna 1 tab PO BID 07/09/18 09/15/18 History Plus] sevelamer carbonate [Renvela] 800 mg PO DAILY 08/31/18 09/15/18 History alprazolam [Xanax] 0.25 mg PO DAILY 09/15/18 09/15/18 History Active Medications: Active Medications Acetaminophen (Tylenol) 650 mg PO UNSCH X1 PRN PRN Reason: SEE LABEL COMMENTS Albuterol (Albuterol Neb (Prn)) 2.5 mg NEB Q4HR NEB PRN PRN Reason: SHORTNESS OF BREATH Last Admin: 09/22/18 09:35 Dose: 2.5 mg Albuterol (Ventolin Hfa Inh) 1 puff INH Q4HR NEB PRN PRN Reason: Shortness Of Breath Alprazolam (Xanax) 0.25 mg PO DAILY PRN PRN Reason: ANXIETY Last Admin: 09/21/18 16:00 Dose: 0.25 mg Amiodarone HCl (Cordarone) 400 mg PO BID MANJU Stop: 09/25/18 21:00 Last Admin: 09/22/18 09:21 Dose: 400 mg Amiodarone HCl (Cordarone) 200 mg PO DAILY [facility] Aspirin (Ecotrin) 81 mg PO DAILY [facility] Last Admin: 09/22/18 09:24 Dose: 81 mg Atorvastatin Calcium (Lipitor) 20 mg PO DAILY [facility] Last Admin: 09/22/18 09:22 Dose: 20 mg Budesonide/Formoterol Fumarate (Symbicort 160/4.5 Mcg Inh) 2 puff INH BID [facility] Last Admin: 09/22/18 09:25 Dose: 2 puff Carvedilol (Coreg) 25 mg PO BID [facility] Last Admin: 09/22/18 09:21 Dose: 25 mg Clonidine HCl (Catapres) 0.1 mg PO UNSCH X1 PRN PRN Reason: SEE LABEL COMMENTS Collagenase (Santyl Oint) 1 applicatio TOPICAL DAILY [facility] Last Admin: 09/22/18 09:24 Dose: 1 applicatio Diphenhydramine HCl (Benadryl) 25 mg PO UNSCH PRN PRN Reason: SEE LABEL COMMENTS Epoetin Joshua (Epogen Inj) 10,000 unit IV.PUSH UNSCH PRN PRN Reason: SEE LABEL COMMENTS Last Admin: 09/21/18 19:28 Dose: 10,000 unit Gelatin (Gelfoam 12 Mm/7 Mm Topical) 1 foam TOPICAL UNSCH PRN PRN Reason: help stop bleeding from site Gentamicin Sulfate (Gentamicin Inj) 20 mg OTHER WITH DIALYSIS PRN PRN Reason: Dwell Gentamycin Lock Last Admin: 09/21/18 19:28 Dose: 20 mg Heparin Sodium (Porcine) (Heparin Inj) 5,000 units SQ Q8H [facility] Last Admin: 09/22/18 11:27 Dose: 5,000 units Heparin Sodium (Porcine) (Heparin Inj) 0 units OTHER WITH DIALYSIS PRN PRN Reason: Dwell Heparin to Fill Catheter Last Admin: 09/18/18 16:06 Dose: 1,000 units Heparin Sodium (Porcine) (Heparin Inj) 8,000 units OTHER WITH DIALYSIS PRN PRN Reason: for machine prime Hydromorphone HCl (Dilaudid) 2 mg PO Q4H PRN PRN Reason: PAIN SCALE 6 TO 10 Last Admin: 09/22/18 11:31 Dose: 2 mg Albumin Human (Flexbumin 25% Inj) 100 mls @ 60 mls/hr IV.SIG WITH DIALYSIS PRN PRN Reason: hypotension / volume replace Sodium Chloride (Ns Inj) 1,000 mls @ 0 mls/hr OTHER .Q0M PRN PRN Reason: for prime and rinse back Sodium Chloride (Ns Inj) 1,000 mls @ 200 mls/hr OTHER .Q5H PRN PRN Reason: for dialyzer flush PRN Sodium Chloride (Ns Inj) 1,000 mls @ 0 mls/hr IV.CONT .Q0M PRN PRN Reason: hypotension / volume replace Mannitol (Mannitol Inj) 12.5 gm IV.PUSH UNSCH PRN PRN Reason: hypotension / volume replace Morphine Sulfate (Morphine Inj) 2 mg IV.PUSH Q1H PRN PRN Reason: BREAKTHROUGH PAIN Last Admin: 09/16/18 02:28 Dose: 2 mg Nitroglycerin (Nitrostat Sl) 0.4 mg SL Q5M PRN PRN Reason: CHEST PAIN Ondansetron HCl (Zofran Inj) 4 mg IV.PUSH UNSCH X1 PRN PRN Reason: WITH DIALYSIS Oxycodone HCl (Roxicodone) 5 mg PO Q4H PRN PRN Reason: PAIN SCALE 1 TO 5 Last Admin: 09/22/18 09:23 Dose: 5 mg Pantoprazole Sodium (Protonix) 20 mg PO DAILY [facility]JU Last Admin: 09/22/18 09:23 Dose: 20 mg Sodium Chloride (Ns Flush) 5 ml IV.FLUSH UNSCH PRN PRN Reason: flush each lumen during HD Last Admin: 09/21/18 08:42 Dose: 5 ml Physical Exam Vital signs: Vital Signs 09/21/18 15:00 09/21/18 16:03 09/21/18 16:14 Temperature 97.3 F L Pulse Rate 54 L 56 L 57 L Respiratory Rate 18 Blood Pressure 135/70 Pulse Oximetry 98 09/21/18 17:00 09/21/18 18:00 09/21/18 20:00 Temperature 97.1 F L Pulse Rate 54 L 58 L 62 Respiratory Rate 18 Blood Pressure 142/60 H Pulse Oximetry 100 09/21/18 21:00 09/21/18 22:00 09/21/18 23:00 Temperature 97.9 F Pulse Rate 64 60 64 Respiratory Rate 18 Blood Pressure 126/64 Pulse Oximetry 97 09/22/18 00:00 09/22/18 01:00 09/22/18 02:00 Temperature Pulse Rate 64 60 57 L Respiratory Rate Blood Pressure Pulse Oximetry 09/22/18 03:00 09/22/18 03:30 09/22/18 04:00 Temperature 97.8 F Pulse Rate 58 L 58 L 56 L Respiratory Rate 18 18 Blood Pressure 142/65 H Pulse Oximetry 98 10/23/18 04:10 09/22/18 05:00 09/22/18 06:00 Temperature Pulse Rate 54 L 56 L Respiratory Rate 18 Blood Pressure Pulse Oximetry 09/22/18 07:00 09/22/18 08:00 09/22/18 09:00 Temperature 97.7 F Pulse Rate 62 61 62 Respiratory Rate 18 Blood Pressure 128/50 L Pulse Oximetry 95 95 09/22/18 09:35 09/22/18 10:00 09/22/18 11:00 Temperature 97.8 F Pulse Rate 82 60 59 L Respiratory Rate 20 18 16 Blood Pressure 135/60 Pulse Oximetry 99 09/22/18 12:00 09/22/18 12:07 09/22/18 13:00 Temperature Pulse Rate 56 L 56 L Respiratory Rate 18 Blood Pressure Pulse Oximetry Intake & Output 09/21/18 09/22/18 09/22/18 18:59 06:59 18:59 Intake Total 240 / 240 Output Total 4000 / 4000 Balance -3760 / -3760 Weight 65.2 kg Intake: Oral 240 / 240 Output: Urine 0 / 0 Hemodialysis Amount 4000 / 4000 Other: Date of Last Bowel Movement 09/21/18 09/21/18 # Bowel Movements 0 - Constitutional no acute distress - Routine HEENT Exam Head: Present: normocephalic Eye: Present: PERRL ENT: Present: mucous membranes moist - Routine Neck Exam Present: full ROM - Routine Respiratory Exam Present: crackles Comments: Fine crackles bilateral lower lobes, otherwise clear. - Routine Cardiovascular Exam Present: S1, S2. Absent: murmur, gallop, rubs - Routine Abdominal Exam Present: normoactive bowel sounds - Routine Extremities Exam Present: edema, full ROM, AV fistula. Absent: cyanosis, clubbing Comments: 3+ edema bilateral lower extremities. Wounds on the right foot and toes. - Routine Skin Exam Present: wounds, ecchymosis - Routine Neurological Exam Present: oriented X3 - Detailed Neurological Exam: Coma Scale Eye Opening: Spontaneous Verbal Response: Oriented Motor Response: Obey commands [place] Coma Scale Total: 15 - Routine Psychiatric Exam Present: normal affect Results 09/22/18 05:39 09/22/18 05:39 Cardiac Enzymes 09/21/18 09/22/18 Range/Units 06:15 05:39 AST 10 L 11 L (15-37) U/L CBC 09/21/18 09/22/18 Range/Units 06:15 05:39 WBC 5.4 4.7 (4.0-11.0) th/mm3 RBC 2.69 L 2.62 L (4.50-5.90) mil/mm3 Hgb 8.2 L 8.0 L (13.0-17.0) gm/dL Hct 26.3 L 25.5 L (39.0-51.0) % Plt Count 61 L 64 L (150-450) th/mm3 Comprehensive Metabolic Panel 09/21/18 09/22/18 Range/Units 06:15 05:39 Sodium 134 L 137 (136-145) meq/L Potassium 4.9 4.7 (3.5-5.1) meq/L Chloride 96 L 98 (98-107) meq/L Carbon Dioxide 27.5 29.5 (21.0-32.0) meq/L BUN 54 H 38 H (7-18) mg/dL Creatinine 8.06 H 6.39 H (0.60-1.30) mg/dL Calcium 8.2 L 7.8 L (8.5-10.1) mg/dL AST 10 L 11 L (15-37) U/L ALT 11 L 11 L (12-78) U/L Alkaline Phosphatase 60 60 (45-117) U/L Total Protein 6.1 L 5.9 L (6.4-8.2) g/dL Albumin 2.9 L 2.8 L (3.4-5.0) g/dL Intake and Output 09/21/18 09/22/18 09/22/18 22:59 06:59 14:59 Intake Total 240 / 240 Output Total 4000 / 4000 0 / 0 Balance -4000 / -4000 240 / 240 Intake: Oral 240 / 240 Output: Urine 0 / 0 Hemodialysis Amount 4000 / 4000 Other: Date of Last Bowel Movement 09/21/18 09/21/18 # Bowel Movements 0 Weight 65.2 kg Assessment and Plan - Assessment (1) Nonsustained ventricular tachycardia Code(s): I47.2 - Ventricular tachycardia Status: Acute (2) Coronary artery disease Code(s): I25.10 - Atherosclerotic heart disease of [place] coronary artery without angina pectoris Status: Acute (3) Pneumonia Code(s): J18.9 - Pneumonia, unspecified organism Status: Acute (4) ESRD (end stage renal disease) on dialysis Code(s): N18.6 - End stage renal disease; Z99.2 - Dependence on renal dialysis Status: Acute (5) Gangrene of right foot Code(s): I96 - Gangrene, not elsewhere classified Status: Acute (6) Gangrene of toe of right foot Code(s): I96 - Gangrene, not elsewhere classified Status: Acute (7) Pseudoaneurysm of distal brachial artery Code(s): I72.1 - Aneurysm of artery of upper extremity Status: Acute (8) COPD (chronic obstructive pulmonary disease) Code(s): J44.9 - Chronic obstructive pulmonary disease, unspecified Status: Acute - Plan Patient had dialysis yesterday, no signs of V-tach, continue Amiodarone loading 400 mg BID until Friday then decrease to 200mg QD. Patient cleared for discharge from a cardiac standpoint. He is instructed to follow-up with [facility] within 1 week after discharge. Patient was seen and evaluated by Dr. Downing who participated in care, management and decision-making. - Attending Attestation Patient seen and examined. I reviewed and agree with the evaluation and plan as presented. Continue amio loading. DC home. F/u with the [facility] within 1 week after discharge. (3) Pneumonia Qualifiers: Pneumonia type: due to unspecified organism Laterality: right Lung location : lower lobe of lung Qualified Code(s): J18.1 - Lobar pneumonia, unspecified organism
[2018-09-22 15:27] VITALS: PULSE 58
[2018-09-26] MEDS ORDERED: Amiodarone 200 MG Tablet PO SCH (09:00)
== END 2018-09-22 15:19 | disposition home health service (06) ==
LOC: HCVO 07:53 → HSDI 07:53 → HCPC 14:12 → HCIS 09-19 02:47
PROVIDERS: ADMIT Internal Medicine; ATTEND Internal Medicine
PROC: AVGFTUE (ICD-10-PCS; 2018-09-15 09:52)